=== PATIENT | female | born 1940 | race African-American/Black ===

== ENCOUNTER → 2017-01-09 | Outpatient (CLI) | payer MEDICARE, BC ==
[2016-06-30 11:00] VITALS: BP 91/41
[~2017-01-09] MED LIST: ASPI81TA9 PO; CHOL20004 PO; IPRA3AMP NEB; LATA2.5D3 OP; LATA2.5D3 OU; OXYC1TAB7 PO; TAMO20TA PO; TRIA1CAP3 PO
--- NOTE | 2017-01-09 13:50 | RAD ---
DATE: 01/09/2017 EXAM: DIGITAL DIAGNOSTIC BILATERAL HISTORY: Follow-up right breast cancer, left breast screening COMPARISON: 08/24/2015 This study was interpreted with the benefit of Computerized Aided Detection (CAD). FINDINGS: There are scattered fibroglandular densities in the breasts. Surgical clips are again noted laterally in the right breast. A small nodule in the posterolateral aspect of the left breast is unchanged. No new or enlarging breast densities are seen. Scattered bilateral breast microcalcifications are again noted and appear unchanged. IMPRESSION: Stable mammograms without evidence of malignancy. BI-RADS CATEGORY: 2 BENIGN FINDING(S) RECOMMENDED FOLLOW-UP: 12M 12 MONTH FOLLOW-UP PQRS compliance statement: Patient information was entered into a reminder system with a target due date for the next mammogram. Mammography is a sensitive method for finding small breast cancers, but it does not detect them all and is not a substitute for careful clinical examination. A negative mammogram does not negate a clinically suspicious finding and should not result in delay in biopsying a clinically suspicious abnormality. "Our facility is accredited by the [employer] Mammography Program."
== END | disposition home or self-care (01) ==
LOC: MAMMO 12:16
PROVIDERS: ATTEND Internal Medicine Hematology & Oncology
DX: D05.11 Intraductal carcinoma in situ of right breast (principal)
CPT/HCPCS: G0204; 77066

== ENCOUNTER → 2017-02-05 | Outpatient (CLI) | payer MEDICARE, BC ==
[2016-06-30 11:00] VITALS: BP 91/41
[~2017-02-05] MED LIST changes: +CONTRAST GIVEN MC PRN; +IOHEXOL 300 MG/ML 75 ML VIAL IV ONE
--- NOTE | 2017-02-05 10:29 | RAD ---
CT chest with IV contrast . History: Right lung carcinoma. Comparison: CT imaging from pleural catheter placement 06/27/2016. Technique: Helical CT of the chest was performed after the administration of intravenous contrast, 75 mL Omnipaque 350. Axial, sagittal, and coronal reconstructions were obtained. One or more of the following individualized dose reduction techniques were utilized for the study: Automated exposure control Adjustment of mA and/or kV according to patient's size Use of iterative reconstruction technique. Findings: Right upper lobectomy changes are seen. No mediastinal or hilar lymphadenopathy is identified. Aortic atherosclerosis seen. Coronary calcifications are present. Heart and pericardium are unremarkable. Thyroid is symmetric. Trachea and mainstem bronchi appear patent. No pneumothorax or pleural effusion is identified. The anterior lateral periphery of the right lower lobe demonstrates some consolidation which may be post treatment scarring. There is a 4 mm soft tissue pulmonary nodule in the right lower lobe (axial image 50), not seen on previous study but may have been obscured by parenchymal airspace disease or atelectasis on previous study. Moderate emphysematous changes of lungs are seen. Elongated 8 mm left upper lobe pulmonary nodule (axial image 34) is unchanged. There is mild nodular thickening of the visualized portions of both adrenal glands, similar to previous study. Right lumpectomy changes are seen. No suspicious osseous lesions are seen. Impression: 1. Right upper lobectomy changes. 2. Emphysema. 3. Small pulmonary nodules. 8 mm left upper lobe pulmonary nodule appears unchanged. There is 4 mm right lower lobe pulmonary nodule which is not well-seen on previous study, but may have been obscured on previous study by airspace disease. Attention on follow-up imaging. 4. Mild nodular thickening of left adrenal glands, similar to previous study.
== END | disposition home or self-care (01) ==
LOC: CT 08:47
PROVIDERS: ATTEND Internal Medicine Hematology & Oncology
DX: C34.91 Malignant neoplasm of unspecified part of right bronchus or lung (principal); J43.9 Emphysema, unspecified; R91.1 Solitary pulmonary nodule
CPT/HCPCS: 71260; Q9967

== ENCOUNTER → 2017-04-20 | Outpatient (CLI) | payer MEDICARE, BC ==
[2016-06-30 11:00] VITALS: BP 91/41
[~2017-04-20] MED LIST changes: +ASPI-612 PO; -ASPI81TA9 PO; -CHOL20004 PO; +CHOL200074 PO; -CONTRAST GIVEN MC PRN; -IOHEXOL 300 MG/ML 75 ML VIAL IV ONE
--- NOTE | 2017-04-20 11:17 | RAD ---
APPROVED REPORT Patient Location : OUT-PATIENT Indications venous insufficiency Findings The right great saphenous vein measures approximately 5.9 mm and does not show any evidence of reflux . The left great saphenous vein measures approximately 5.3 mm and does not show any evidence of reflu x. The bilateral lesser saphenous veins do not demonstrate any evidence of reflux. Critical Notification Critical Value: No <Conclusion> No evidence of reflux in the bilateral greater and lesser saphenous veins.
--- NOTE | 2017-04-20 16:37 | CARD ---
APPROVED REPORT EXAM: Two-dimensional and M-mode echocardiogram with Doppler and color Doppler. Other Information Quality : GoodHR: 64bpm Rhythm : NSR INDICATION Hypertension/HCVD Chest Pain 2D DIMENSIONS RVDd2.1 (2.9-3.5cm)Left Atrium(2D)3.4 (1.6-4.0cm) IVSd0.7 (0.7-1.1cm)Aortic Root(2D)3.0 (2.0-3.7cm) LVDd4.5 (3.9-5.9cm)LVOT Diameter2.2 (1.8-2.4cm) PWd0.7 (0.7-1.1cm)LVDs3.1 (2.5-4.0cm) FS (%) 30.9 %SV53.6 ml LVEF(%)58.6 (>50%) Aortic Valve AoV Peak Chaim.161.0cm/sAoV VTI38.1cm AO Peak GR.10.4mmHgLVOT Peak Chaim.106.3cm/s AO Mean GR.5mmHgAVA (VMAX)2.51cm2 Mitral Valve MV E Xbpiadjq501.0cm/sMV E Peak Gr.7mmHg MV DECEL [id number] A Gpgxoqhk858.9cm/s MV E Mean Gr.3mmHgE/A Ratio0.9 MV A [id number] Pulmonary Valve PV Peak Dkpmxgpd954.5cm/s Pulmonary Vein S1 Mlduuveg90.8cm/sD2 Eutbsclx46.7cm/s PVa gafkbsza05xclh LEFT VENTRICLE The left ventricle is normal size. There is normal left ventricular wall thickness. The left ventricu lar systolic function is normal and the ejection fraction is within normal range. The Ejection Fracti on is 55-60%. There is normal LV segmental wall motion. Transmitral Doppler flow pattern is Grade I-a bnormal relaxation pattern. RIGHT VENTRICLE The right ventricle is normal size. There is normal right ventricular wall thickness. The right ventr icular systolic function is normal. ATRIA The left atrium size is normal. The right atrium size is normal. The interatrial septum is intact wit h no evidence for an atrial septal defect or patent foramen ovale as noted on 2-D or Doppler imaging. AORTIC VALVE The aortic valve is moderately sclerotic. The aortic valve is grossly trileaflet but not well visuali zed. Doppler and Color Flow revealed no significant aortic regurgitation. There is no significant aor tic valvular stenosis. MITRAL VALVE The mitral valve leaflets are mildly thickened. There is no evidence of mitral valve prolapse. There is no mitral valve stenosis. Doppler and Color Flow revealed trace mitral regurgitation. TRICUSPID VALVE Doppler and Color Flow revealed no tricuspid valve regurgitation noted. Unable to determine pulmonary artery pressure at exam time. PULMONIC VALVE The pulmonary valve is not well visualized but appears to opens well. Doppler and Color Flow revealed no pulmonic valvular regurgitation. There is no pulmonic valvular stenosis by spectral Doppler. GREAT VESSELS The aortic root is normal in size. The ascending aorta is normal in size. The pulmonary artery is nor mal. The IVC is normal in size and collapses >50% with inspiration. PERICARDIAL EFFUSION There is no evidence of significant pericardial effusion. Critical Notification Critical Value: No <Conclusion> The left ventricular systolic function is normal and the ejection fraction is within normal range. Th e Ejection Fraction is 55-60%. There is normal LV segmental wall motion. The aortic valve is moderately sclerotic. The aortic valve is grossly trileaflet but not well visuali zed. No evidence of stenosis.
== END | disposition home or self-care (01) ==
LOC: US 06:59
PROVIDERS: ATTEND Internal Medicine Cardiovascular Disease
DX: I34.0 Nonrheumatic mitral (valve) insufficiency (principal); I87.2 Venous insufficiency (chronic) (peripheral); R07.9 Chest pain, unspecified
CPT/HCPCS: 93306; 93970

== ENCOUNTER → 2017-08-25 | Outpatient (CLI) | payer MEDICARE, BC ==
[2016-06-30 11:00] VITALS: BP 91/41
[~2017-08-25] MED LIST changes: +IOHEXOL 300 MG/ML 100ML VIAL. IV ONE
--- NOTE | 2017-08-25 10:25 | RAD ---
CT chest with contrast 08/25/2017 Clinical indication: Adenocarcinoma of the right lung. Restaging. Comparison: CT chest with contrast 02/05/2017, CT chest without 03/07/2016. Technique: Multiple CT images of the chest were obtained following the intravenous menstruation of Omnipaque 375 mL. PQRS Compliance Statement: One or more of the following individualized dose reduction techniques were utilized for this examination: 1. Automated exposure control 2. Adjustment of the mA and/or kV according to patient size 3. Use of iterative reconstruction technique Findings: Chest: There are surgical clips anterior to the thyroid. Heart size is normal without significant pericardial effusion. Thoracic aorta is normal in caliber with extensive calcified atheromatous disease most prominent at the ascending thoracic aorta and thoracic aortic arch. No axillary, mediastinal or obvious hilar lymphadenopathy. There are scattered mediastinal and hilar calcified granulomas. There are postsurgical changes of a prior right upper lobectomy. There is severe centrilobular emphysema. There is a stable noncalcified nodule in the anterior left upper lobe measuring 0.9 cm series 2/image 37, previously 0.9 cm. Slight interval decrease in basilar right lower lobe nodule now measuring 0.3 cm series 2/image 52 with decrease in the nodular component, likely benign infectious or inflammatory nodule. 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 Prominent of a 0.3 cm noncalcified nodule in the left lower lobe series 2/image 48. No pleural effusion or pneumothorax. There is degenerative endplate sclerosis at L2. No destructive osseous lesions. Limited images of the upper abdomen: There are 2 stable right adrenal gland nodules measuring 1.4 cm superiorly series 2/image 58 and 1.8 cm inferiorly series 2/image 62. Impression: 1. 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 2. Development of 0.3 cm noncalcified nodule in the left lower lobe, indeterminate. CT follow-up in 3 months is recommended. 4. Stable anterior left upper lobe noncalcified pulmonary nodule. 5. Slight interval decrease in previously noted right lower lobe pulmonary nodule, likely benign infectious or inflammatory nodule. Attention on follow-up imaging is recommended. 6. Unchanged two right adrenal gland nodules.
== END | disposition home or self-care (01) ==
LOC: CT 09:03
PROVIDERS: ATTEND Internal Medicine Hematology & Oncology
DX: C34.91 Malignant neoplasm of unspecified part of right bronchus or lung (principal)
CPT/HCPCS: 71260; Q9967

== ENCOUNTER → 2017-11-23 | Outpatient (CLI) | payer MEDICARE ==
[~2017-11-23] MED LIST changes: -ASPI-612 PO; -CHOL200074 PO; +CONTRAST GIVEN MC; -IOHEXOL 300 MG/ML 100ML VIAL. IV ONE; -IPRA3AMP NEB; -LATA2.5D3 OP; -LATA2.5D3 OU; -OXYC1TAB7 PO; -TAMO20TA PO; -TRIA1CAP3 PO
[2017-11-23] MEDS: IOHEXOL 300 MG/ML 100ML VIAL. IV ×2 (11:05)
== END | disposition home or self-care (01) ==
LOC: CT 10:44
DX: C34.91 Malignant neoplasm of unspecified part of right bronchus or lung (principal); J43.9 Emphysema, unspecified; I10 Essential (primary) hypertension; I70.0 Atherosclerosis of aorta; R91.8 Other nonspecific abnormal finding of lung field; Z87.891 Personal history of nicotine dependence
CPT/HCPCS: 71260; Q9967

== ENCOUNTER → 2018-01-11 | Outpatient (CLI) | payer MEDICARE | END | disposition home or self-care (01) | LOC: MAMMO 09:03 | DX: D05.11 Intraductal carcinoma in situ of right breast (principal); R91.8 Other nonspecific abnormal finding of lung field; Z85.3 Personal history of malignant neoplasm of breast | CPT/HCPCS: 77066; G0279 ==

== ENCOUNTER → 2018-03-22 | Outpatient (CLI) | payer MEDICARE | END | disposition home or self-care (01) | LOC: CT 09:07 | DX: J43.2 Centrilobular emphysema (principal); R91.8 Other nonspecific abnormal finding of lung field | CPT/HCPCS: 71250 ==

== ENCOUNTER → 2018-10-01 | Outpatient (CLI) | payer MEDICARE ==
[2016-06-30 11:00] VITALS: BP 91/41
[~2018-10-01] MED LIST changes: +ASPI-612 PO; +CHOL200074 PO; -CONTRAST GIVEN MC; +IPRA3AMP29 NEB; +LATA2.5D3 OP; +LATA2.5D3 OU; +OXYC1TAB7 PO; +TAMO20TA PO; +TRIA1CAP3 PO
--- NOTE | 2018-10-01 10:22 | RAD ---
EXAM: CT Chest without IV contrast CLINICAL HISTORY: ductal carcinoma right breast, hx of lung ca and prior pulmonary embolus COMPARISON: CT 03/22/2018, 11/23/2017 03/07/2016. TECHNIQUE: CT of the chest without intravenous contrast. Axial, coronal and sagittal reformatted images were generated. ---PQRS compliance statement - One or more of the following individualized dose reduction techniques were utilized for this study: 1. Automated exposure control 2. Adjustment of the mA and/or kV according to patient size 3. Use of iterative reconstruction technique--- FINDINGS: Lack of intravenous contrast limits evaluation of solid organs, vasculature, and lymph nodes. Chest: The heart is not enlarged. No pericardial effusion. Coronary artery calcifications are seen. Dense atherosclerotic calcifications of the aorta and aortic root are seen. No pleural effusion or pneumothorax. Within the constraints of this noncontrast examination, no definite thoracic lymphadenopathy. Calcified mediastinal and right hilar lymph nodes are seen. Bilateral emphysematous changes are seen. Triangular lingular lung nodule is stable and compared to 03/07/2016 is significantly smaller. A 4 mm left apical lung nodule is now seen. Linear opacities in the lower lobes, middle lobe and lingula likely scarring/atelectasis. Right chest wall and axillary surgical clips are seen. Visualized Upper abdomen: Right renal nodules are stable. High density material within the gallbladder likely sludge. Bones: Degenerative changes of the spine are seen, most prominent at L2-3. IMPRESSION: 1. A new 4 mm left apical lung nodule is seen. Given history of known malignancy, consider follow-up in 6-12 months. 2. No thoracic lymphadenopathy by size criteria. 3. Bilateral emphysematous changes are seen. Electronically signed by: Harshil George MD (10/01/2018 10:18 AM) [facility]
== END | disposition home or self-care (01) ==
LOC: CT 08:07
PROVIDERS: ATTEND Internal Medicine Hematology & Oncology
DX: R91.1 Solitary pulmonary nodule (principal); R59.0 Localized enlarged lymph nodes; I70.0 Atherosclerosis of aorta; I25.10 Atherosclerotic heart disease of native coronary artery without angina pectoris; I26.99 Other pulmonary embolism without acute cor pulmonale; Z85.118 Personal history of other malignant neoplasm of bronchus and lung; Z85.3 Personal history of malignant neoplasm of breast
CPT/HCPCS: 71250

== ENCOUNTER → 2019-01-12 | Outpatient (CLI) | payer MEDICARE ==
[2016-06-30 11:00] VITALS: BP 91/41
--- NOTE | 2019-01-12 10:11 | RAD ---
DATE: 01/12/2019 EXAM: MAMMO LIANE SCREENING BILATERAL HISTORY: Previous right breast cancer COMPARISON: 01/11/2018 This study was interpreted with the benefit of Computerized Aided Detection (CAD). Breast Density: SCATTERED The breast parenchyma shows scattered fibroglandular densities. Breast parenchyma level B. FINDINGS: 2-D and 3-D tomosynthesis imaging was performed in CC and MLO projections. Surgical clips are present laterally in the right breast. There is an unchanged smooth oval-shaped nodule in the posterolateral aspect of the left breast. A 1 cm smooth periarticular nodule is now noted laterally at approximately the 3:00 location. No other new or enlarging breast densities are seen. Microcalcifications in both breasts appear stable. IMPRESSION: Left lateral periareolar nodule. Sonographic evaluation is suggested. BI-RADS CATEGORY: 0 INCOMPLETE: NEEDS ADDITIONAL IMAGING EVALUATION AND/OR PRIOR MAMMOGRAMS FOR COMPARISON. RECOMMENDED FOLLOW-UP: ADD ADDITIONAL IMAGING PQRS compliance statement: Patient information was entered into a reminder system with a target due date for the next mammogram. Mammography is a sensitive method for finding small breast cancers, but it does not detect them all and is not a substitute for careful clinical examination. A negative mammogram does not negate a clinically suspicious finding and should not result in delay in biopsying a clinically suspicious abnormality. "Our facility is accredited by the [employer] Mammography Program."
== END | disposition home or self-care (01) ==
LOC: MAMMO 09:14
PROVIDERS: ATTEND Internal Medicine Hematology & Oncology
DX: Z12.31 Encounter for screening mammogram for malignant neoplasm of breast (principal); N63.21 Unspecified lump in the left breast, upper outer quadrant; Z85.3 Personal history of malignant neoplasm of breast
CPT/HCPCS: 77063; 77067

== ENCOUNTER → 2019-01-17 | Outpatient (CLI) | payer MEDICARE ==
[2016-06-30 11:00] VITALS: BP 91/41
--- NOTE | 2019-01-17 14:03 | RAD ---
LEFT BREAST SONOGRAPHY Clinical indications: Further evaluation of lateral periareolar nodule seen on screening mammogram dated January 12, 2019. Findings: High-resolution sonography of the retroareolar region of the left breast was performed. At the 3 clock position, an 11 mm simple cyst is seen which corresponds to the mammographic finding. Retroareolar ductal ectasia is seen as well. IMPRESSION: Simple cyst of the 3:00 retroareolar region of the left breast which corresponds to the mammographic finding. Therefore, recommend routine screening mammography in one year. BI-RADS Category 2 benign finding The patient information was entered into the data reminder system with a target due date for the next mammogram of January 14, 2020.
== END | disposition home or self-care (01) ==
LOC: US 15:55
PROVIDERS: ATTEND Internal Medicine Hematology & Oncology
DX: D05.11 Intraductal carcinoma in situ of right breast (principal); N60.02 Solitary cyst of left breast
CPT/HCPCS: 76641

== ENCOUNTER → 2019-04-06 | Outpatient (CLI) | payer MEDICARE ==
[2016-06-30 11:00] VITALS: BP 91/41
--- NOTE | 2019-04-06 17:00 | RAD ---
CT of the chest without contrast, 04/06/2019: HISTORY: Previous right lung cancer and right breast cancer, lung nodule Noncontrast scans were obtained as requested and compared to a study from 10/01/2018. There are moderate emphysematous changes in the lungs. There are bilateral apical pleural-parenchymal opacities which are unchanged and are compatible with scarring. There is a calcific component in the right apex. There are additional scattered linear opacities in both lungs compatible with scars. There is parenchymal scarring laterally in the right mid chest. There is slight herniation of a small portion of lung between the right fifth and sixth ribs, likely related to previous chest surgery. No enlarging pulmonary densities are seen. There is no evidence of pleural fluid. There is moderate calcific plaquing of the thoracic aorta and its branches including the coronary arteries. There is no evidence of thoracic aortic aneurysm. The heart is not enlarged. There is a calcified subcarinal lymph node. No mediastinal adenopathy is evident. There are surgical clips in the lower neck and in the right breast laterally. No axillary adenopathy is seen. There are moderate scattered degenerative changes in the spine. IMPRESSION: 1. Emphysema with bilateral pleural/parenchymal scarring. 2. Postsurgical changes in the right hemithorax. 3. Extensive calcific plaquing of the aorta and coronary arteries. 4. No CT evidence of metastatic disease. PQRS Compliance Statement: One or more of the following individualized dose reduction techniques were utilized for this examination: 1. Automated exposure control 2. Adjustment of the mA and/or kV according to patient size 3. Use of iterative reconstruction technique Electronically signed by: Vito Williamson MD (04/06/2019 4:58 PM) [facility]
== END | disposition home or self-care (01) ==
LOC: CT 10:48
PROVIDERS: ATTEND Internal Medicine Hematology & Oncology
DX: J43.9 Emphysema, unspecified (principal); J98.4 Other disorders of lung; I70.0 Atherosclerosis of aorta; I25.10 Atherosclerotic heart disease of native coronary artery without angina pectoris; M95.4 Acquired deformity of chest and rib; D05.11 Intraductal carcinoma in situ of right breast; Z85.3 Personal history of malignant neoplasm of breast; Z85.118 Personal history of other malignant neoplasm of bronchus and lung
CPT/HCPCS: 71250

== ENCOUNTER 2019-09-22 05:29 | Inpatient (IN) | payer MEDICARE ==
[~2019-09-22] VITALS: Ht 165.1 cm; Wt 71.8 kg
[2019-09-22] MEDS ORDERED: IPRATRPIUM/ALBUTEROL 0.5/2.5MG 3 ML NEBU. NEB ONE (05:45)
--- NOTE | 2019-09-22 05:54 | EKG ---
[facility] [address] [place] [address] Test Date: 2019-09-22 Test Time: 05:36:26 Pat Name: YUN JETT Department: Room: Gender: F [employer] Offbearer: : 1940 Requested By: PADILLA GILLESPIE Order Number: [id number] Reading MD: Measurements Intervals Shelby Rate: 122 P: 59 ME: 136 QRS: 56 QRSD: 86 T: 66 QT: 280 QTc: 400 Interpretive Statements SINUS TACHYCARDIA NON SPECIFIC ST-T ABNORMALITY (ELEVATION) OTHERWISE NORMAL ECG No previous ECG available for comparison
--- NOTE | 2019-09-22 06:10 | PHYS DOC ---
Past Medical History Past Medical History: Cancer, Hypertension, Other Additional Past Medical Histor: Chemo in 2006 (PADILLA GILLESPIE MD) Past Surgical History: Other Additional Past Surgical Histo: right lung biopsy (PADILLA GILLESPIE MD) Alcohol Use: None Drug Use: None (PADILLA GILLESPIE MD) Adult General Chief Complaint Chief Complaint: SHORTNESS OF BREATH HPI HPI 79-year-old female presents to the emergency department via EMS with complaints of shortness of breath. Patient has a history of lung cancer. She called EMS for increasing shortness of breath over the last couple days. Patient provided a DuoNeb per EMS. Oxygen saturations upon arrival on 6 L were 85-87%. Respiratory was called to the ER for further evaluation and treatment with DuoNeb. Nonrebreather was placed with saturations in the low 90s. She is in no significant distress on examination. She describes weakness, cough, chills. She denies any fever, nausea, vomiting, headache or visual change. (PADILLA GILLESPIE MD) Review of Systems Review of Systems Constitutional: Chills Respiratory: cough/SOB Cardiovascular: No additional information not addressed in HPI [] GI: Denies abdominal pain, nausea, vomiting, bloody stools or diarrhea [] : Denies dysuria or hematuria [] Musculoskeletal: Denies back pain or joint pain [] Neurologic: Denies headache, focal weakness or sensory changes [] All other systems were reviewed and found to be within normal limits, except as documented in this note. (PADILLA GILLESPIE MD) Current Medications Current Medications Current Medications Medications (Trade) Dose Ordered Sig/Rosa Start Time Stop Time Status Last Admin Dose Admin Acetaminophen (Tylenol) 1,000 mg 1X ONCE 09/22/19 07:00 09/22/19 07:01 DC 09/22/19 07:21 1,000 MG Albuterol/ Ipratropium (Duoneb) 3 ml 1X ONCE 09/22/19 05:45 09/22/19 05:50 DC 09/22/19 05:49 3 ML Levofloxacin/ Dextrose 150 ml @ 100 mls/hr 1X ONCE 09/22/19 07:00 09/22/19 08:29 09/22/19 07:21 100 MLS/HR Sodium Chloride 1,000 ml @ 250 mls/hr 1X ONCE 09/22/19 07:00 09/22/19 10:59 09/22/19 07:22 250 MLS/HR (TORI REN Jr. DO) Allergies Allergies Allergies Coded Allergies Type Severity Reaction Last Updated Verified Penicillins Allergy Intermediate Rash 06/17/16 Yes (TORI REN Jr. DO) Physical Exam Physical Exam Constitutional: Well developed, well nourished, mild distress, non-toxic appearance. [] HENT: Normocephalic, atraumatic, bilateral external ears normal, oropharynx moist, no oral exudates, nose normal. [] Eyes: PERRLA, EOMI, conjunctiva normal, no discharge. [] Cardiovascular: tachycardia Lungs & Thorax: decreased bs Abdomen: Bowel sounds normal, soft, no tenderness, no masses, no pulsatile masses. [] Skin: Warm, dry, no erythema, no rash. [] Extremities: No tenderness, no edema. [] Neurologic: Alert and oriented X 3, no focal deficits noted. [] Psychologic: Affect normal, judgement normal, mood normal. [] (PADILLA GILLESPIE MD) Current Patient Data Vital Signs Vital Signs Date Time Temp Pulse Resp B/P (MAP) Pulse Ox O2 Delivery O2 Flow Rate FiO2 09/22/19 07:08 95 Nasal Cannula 6.0 09/22/19 06:40 114 23 118/63 (81) 09/22/19 05:30 100.5 100.5 (TORI REN Jr. DO) Lab Values Laboratory Tests Test 09/22/19 06:10 09/22/19 06:18 09/22/19 06:23 White Blood Count 8.3 x10^3/uL (4.0-11.0) Red Blood Count 4.42 x10^6/uL (3.50-5.40) Hemoglobin 13.8 g/dL (12.0-15.5) Hematocrit 41.6 % (36.0-47.0) Mean Corpuscular Volume 94 fL (79-100) Mean Corpuscular Hemoglobin 31 pg (25-35) Mean Corpuscular Hemoglobin Concent 33 g/dL (31-37) Red Cell Distribution Width 14.7 % (11.5-14.5) H Platelet Count 210 x10^3/uL (140-400) Neutrophils (%) (Auto) 96 % (31-73) H Lymphocytes (%) (Auto) 2 % (24-48) L Monocytes (%) (Auto) 2 % (0-9) Eosinophils (%) (Auto) 0 % (0-3) Basophils (%) (Auto) 0 % (0-3) Neutrophils # (Auto) 8.0 x10^3/uL (1.8-7.7) H Lymphocytes # (Auto) 0.2 x10^3/uL (1.0-4.8) L Monocytes # (Auto) 0.2 x10^3/uL (0.0-1.1) Eosinophils # (Auto) 0.0 x10^3/uL (0.0-0.7) Basophils # (Auto) 0.0 x10^3/uL (0.0-0.2) Platelet Estimate Pending Sodium Level 142 mmol/L (136-145) Potassium Level 3.4 mmol/L (3.5-5.1) L Chloride Level 103 mmol/L (98-107) Carbon Dioxide Level 25 mmol/L (21-32) Anion Gap 14 (6-14) Blood Urea Nitrogen 52 mg/dL (7-20) H Creatinine 1.5 mg/dL (0.6-1.0) H Estimated GFR (Cockcroft-Gault) 40.4 BUN/Creatinine Ratio 35 (6-20) H Glucose Level 106 mg/dL (70-99) H Calcium Level 9.0 mg/dL (8.5-10.1) Total Bilirubin 0.9 mg/dL (0.2-1.0) Aspartate Amino Transferase (AST) 27 U/L (15-37) Alanine Aminotransferase (ALT) 14 U/L (14-59) Alkaline Phosphatase 52 U/L (46-116) Troponin I Quantitative < 0.017 ng/mL (0.000-0.055) VQ-Elv-Q-Type Natriuretic Peptide 1021 pg/mL (0-449) H Total Protein 6.2 g/dL (6.4-8.2) L Albumin 2.7 g/dL (3.4-5.0) L Albumin/Globulin Ratio 0.8 (1.0-1.7) L Lactic Acid Level 3.5 mmol/L (0.4-2.0) H Influenza Type A Antigen Negative (NEGATIVE) Influenza Type B Antigen Negative (NEGATIVE) Laboratory Tests 09/22/19 06:10 Laboratory Tests 09/22/19 06:10 (TORI REN Jr., DO) EKG EKG [] (PADILLA GILLESPIE MD) Radiology/Procedures Radiology/Procedures [] (PADILLA GILLESPIE MD) Impressions: PROCEDURE: PORTABLE CHEST 1V EXAM: CHEST 1 VIEW History: Shortness of breath COMPARISON: 08/25/2016 TECHNIQUE: Single portable radiograph of the chest FINDINGS: The cardiac silhouette is unremarkable. Consolidation changes identified in the left lower lobe of the lung likely pneumonia or atelectasis. Mild prominent bilateral interstitial lung markings. Impression: 1. Left lower lobe consolidation likely pneumonia or atelectasis. Follow-up to resolution. 2. Prominent bilateral digital lung markings likely mild congestive changes. Electronically signed by: Garrett Florentino MD (09/22/2019 6:10 AM) [facility] (TORI REN Jr., DO) Course & Med Decision Making Course & Med Decision Making Pertinent Labs and Imaging studies reviewed. (See chart for details) [] 79-year-old female presents to the emergency department via EMS with complaints of shortness of breath. Patient has a history of lung cancer. She called EMS for increasing shortness of breath over the last couple days. Patient provided a DuoNeb per EMS. Oxygen saturations upon arrival on 6 L were 85-87%. Respiratory was called to the ER for further evaluation and treatment with DuoNeb. Nonrebreather was placed with saturations in the low 90s. She is in no significant distress on examination. She describes weakness, cough, chills. She denies any fever, nausea, vomiting, headache or visual change. She care transferred to oncoming physician at [phone]. Discuss[address] case with Dr. Ren. He will assume care and disposition of this patient. (PADILLA GILLESPIE MD) Dragon Disclaimer Dragon Disclaimer This electronic medical record was generated, in whole or in part, using a voice recognition dictation system. (PADILLA GILLESPIE MD) Departure Departure Impression: Primary Impression: Community acquired pneumonia Additional Impressions: Hypoxemia Acute kidney injury Dehydration Disposition: ADMITTED INPATIENT Admitting Physician: [facility] (Dr. Banks) (REN,TORI D Jr. DO) Condition: IMPROVED Referrals: KENDELL CHAN MD (PCP) Problem Qualifiers Primary Impression: Community acquired pneumonia Laterality: left Lung location: lower lobe of lung Qualified Codes: J18.9 - Pneumonia, unspecified organism PADILLA GILLESPIE MD Sep 22, 2019 06:10 TORI REN Jr., DO Sep 22, 2019 06:42
--- NOTE | 2019-09-22 06:13 | RAD ---
EXAM: CHEST 1 VIEW History: Shortness of breath COMPARISON: 08/25/2016 TECHNIQUE: Single portable radiograph of the chest FINDINGS: The cardiac silhouette is unremarkable. Consolidation changes identified in the left lower lobe of the lung likely pneumonia or atelectasis. Mild prominent bilateral interstitial lung markings. Impression: 1. Left lower lobe consolidation likely pneumonia or atelectasis. Follow-up to resolution. 2. Prominent bilateral digital lung markings likely mild congestive changes. Electronically signed by: Garrett Florentino MD (09/22/2019 6:10 AM) [facility]
[2019-09-22 06:26] LABS: BASO % 0 % (0-3); EOS % 0 % (0-3); HEMATOCRIT 41.6 % (36.0-47.0); HEMOGLOBIN 13.8 g/dL (12.0-15.5); LYMPH # 0.2 x10^3/uL (1.0-4.8); LYMPH % 2 % (24-48); MEAN CORPUSCULAR HEMOGLOBIN 31 pg (25-35); MEAN CORPUSCULAR HGB CONC 33 g/dL (31-37); MEAN CORPUSCULAR VOLUME 94 fL (79-100); MONO # 0.2 x10^3/uL (0.0-1.1); MONO % 2 % (0-9); NEUT % 96 % (31-73); PLATELET COUNT 210 x10^3/uL (140-400); RED BLOOD COUNT 4.42 x10^6/uL (3.50-5.40); RED CELL DISTRIBUTION WIDTH 14.7 % (11.5-14.5); WHITE BLOOD COUNT 8.3 x10^3/uL (4.0-11.0)
[2019-09-22 06:33] LABS: CREATININE 1.5 mg/dL (0.6-1.0); GFR 40.4; POTASSIUM 3.4 mmol/L (3.5-5.1)
[2019-09-22 06:38] LABS: ALBUMIN 2.7 g/dL (3.4-5.0); ALBUMIN/GLOBULIN RATIO 0.8 (1.0-1.7); TOTAL BILIRUBIN 0.9 mg/dL (0.2-1.0); TOTAL PROTEIN 6.2 g/dL (6.4-8.2)
[2019-09-22] MEDS ORDERED: ACETAMINOPHEN 500 MG TABLET PO ONE (07:00)
[2019-09-22] MEDS ORDERED: IV NORMAL SALINE 1000ML BAG 1,000 ML IV ONE ×2 (07:00→09:00)
[2019-09-22 07:10] LABS: INFLUENZA A PATIENT NEGATIVE (NEGATIVE); INFLUENZA B PATIENT NEGATIVE (NEGATIVE)
[2019-09-22 07:58] LABS: % BANDS 28 % (0-9); % LYMPHS 5 % (24-48); % METAS 3 % (0-0); % MONOS 4 % (0-10); % SEGS 60 % (35-66); PLT ESTIMATE ADEQUATE (ADEQUATE); TOXIC VACUOLATION PRESENT
--- NOTE | 2019-09-22 08:00 | PDOC1 ---
History and Physical Date of Admission Date of Admission DATE: 09/22/19 TIME: 07:51 Identification/Chief Complaint Chief Complaint Shortness of breath Source Source: Patient History of Present Illness History of Present Illness Ms Steele is an 79 yo F w/ PMHx RUL Adenocarcinoma s/p right upper lobectomy, hypertension c/p shortness of breath. Brought in via EMS for dyspnea over the past 2 days, was given DuoNeb enroute. Oxygen saturations upon arrival on 6 L were 85-87% and was changed to nonrebreather was placed with saturations in the low 90s. She is in no significant distress on examination. She describes weakn ess, cough, chills. She denies any fever, nausea, vomiting, headache or visual change. Cr 1.5. CXR with LLL infiltrate. Admit for further care Past Medical History Cardiovascular: HTN Heme/Onc: Cancer (Lung cancer) Past Surgical History Past Surgical History: Other (RUL lobectomy) Family History Family History: High Cholestrol, Hypertension Social History Smoke: Quit ALCOHOL: none Drugs: None Current Problem List Problem List Problems Medical Problems: (1) Shortness of breath Status: Acute Current Medications Current Medications Current Medications Albuterol/ Ipratropium (Duoneb) 3 ml 1X ONCE NEB Last administered on 09/22/19at 05:49; Start 09/22/19 at 05:45; Stop 09/22/19 at 05:50; Status DC Levofloxacin/ Dextrose 150 ml @ 100 mls/hr 1X ONCE IV Last administered on 09/22/19at 07:21; Start 09/22/19 at 07:00; Stop 09/22/19 at 08:29 Sodium Chloride 1,000 ml @ 250 mls/hr 1X ONCE IV Last administered on 09/22/19at 07:22; Start 09/22/19 at 07:00; Stop 09/22/19 at 10:59 Acetaminophen (Tylenol) 1,000 mg 1X ONCE PO Last administered on 09/22/19at 07:21; Start 09/22/19 at 07:00; Stop 09/22/19 at 07:01; Status DC Active Scripts Active Oxycodone-Acetaminophen 5-325 (Oxycodone Hcl/Acetaminophen) 1 Each Tablet 1 Tab PO PRN Q4HRS PRN Latanoprost 2.5 Ml Drops 1 Drop OU QHS Duoneb 0.5-3(2.5) Mg/3 Ml (Albuterol/Ipratropium) 3 Ml Ampul.neb 3 Ml NEB RTQID Reported Tamoxifen Citrate 20 Mg Tablet 10 Mg PO BID Latanoprost 2.5 Ml Drops 1 Ml OP QHS Triamterene-Hctz 37.5-25 Mg Cp (Triamterene/Hydrochlorothiazid) 1 Each Capsule 1 Each PO DAILY Aspirin Ec (Aspirin) 81 Mg Tablet.dr 81 Mg PO DAILY Vitamin D-3 (Cholecalciferol (Vitamin D3)) 2,000 Unit Capsule 2,000 Unit PO DAILY Allergies Allergies: Coded Allergies: Penicillins (Verified Allergy, Intermediate, Rash, 06/17/16) ROS General: YES: Fatigue, Malaise; No: Chills, Night Sweats, Appetite, Other PSYCHOLOGICAL ROS: No: Anxiety, Behavioral Disorder, Concentration difficultie, Decreased libido, Depression, Disorientation, Hallucinations, Hostility, Irritablity, Memory difficulties, Mood Swings, Obsessive thoughts, Physical abuse, Sexual abuse, Sleep disturbances, Suicidal ideation, Other Eyes: No Blurry vision, No Decreased vision, No Double vision, No Dry eyes, No Excessive tearing, No Eye Pain, No Itchy Eyes, No Loss of vision, No Photophobia, No Scotomata, No Uses contacts, No Uses glasses, No Other HEENT: No: Heacaches, Visual Changes, Hearing change, Nasal congestion, Nasal discharge, Oral lesions, Sinus pain, Sore Throat, Epistaxis, Sneezing, Snoring, Tinnitus, Vertigo, Vocal changes, Other ALLERGY AND IMMUNOLOGY: No: Hives, Insect Bite Sensitivity, Itchy/Watery Eyes, Nasal Congestion, Post Nasal Drip, Seasonal Allergies, Other Hematological and Lymphatic: No: Bleeding Problems, Blood Clots, Blood Transfusions, Brusing, Night Sweats, Pallor, Swollen Lymph Nodes, Other ENDOCRINE: No: Breast Changes, Galactorrhea, Hair Pattern Changes, Hot Flashes, Malaise/lethargy, Mood Swings, Palpitations, Polydipsia/polyuria, Skin Changes, Temperature Intolerance, Unexpected Weight Changes, Other Breast: No New/Changing Breast Lumps, No Nipple changes, No Nipple discharge, No Other Respiratory: YES: Cough, Shortness of breath, SOB with excertion, Tachypnea, Wheezing; No: Hemoptysis, Orthopnea, Pleuritic Pain, Sputum Changes, Stridor, Other Cardiovascular: No Chest Pain, No Palpitations, No Orthopnea, No Paroxysmal Noc. Dyspnea, No Edema, No Lt Headedness, No Other Gastrointestinal: No Nausea, No Vomiting, No Abdominal Pain, No Diarrhea, No Constipation, No Melena, No Hematochezia, No Other Genitourinary: No Dysuria, No Frequency, No Incontinence, No Hematuria, No Retention, No Discharge, No Urgency, No Pain, No Flank Pain, No Other, No , No , No , No , No , No , No Musculoskeletal: Yes Muscle Pain, Yes Muscular Weakness; No Gait Disturbance, No Joint Pain, No Joint Stiffness, No Joint Swelling, No Pain In:, No Swelling In:, No Other Neurological: No Behavorial Changes, No Bowel/Bladder ControlChng, No Confusion , No Dizziness, No Gait Disturbance, No Headaches, No Impaired Coord/balance, No Memory Loss, No Numbness/Tingling, No Seizures, No Speech Problems, No Tremors, No Visual Changes, No Weakness, No Other Skin: No Dry Skin, No Eczema, No Hair Changes, No Lumps, No Mole Changes, No Mottling, No Nail Changes, No Pruritus, No Rash, No Skin Lesion Changes, No Other, No Acne Physical Exam General: Alert, Oriented X3, Cooperative, mild distress HEENT: Atraumatic, PERRLA, EOMI, Mucous membr. moist/pink Lungs: Other (Rhonchi on left) Heart: S1S2, RRR, no thrills, no rubs, no gallops, no murmurs Abdomen: Normal bowel sounds, Soft, No tenderness, No hepatosplenomegaly, No masses Rectal Exam: not examined Extremities: No clubbing, No cyanosis, No edema, Normal pulses, No tenderness/swelling Skin: No rashes, No breakdown, No significant lesion Neuro: Normal gait, Normal speech, Strength at 5/5 X4 ext, Normal tone, Sensati on intact, Cranial nerves 3-12 NL, Reflexes 2+ Psych/Mental Status: Mental status NL, Mood NL Vitals Vitals Vital Signs Date Time Temp Pulse Resp B/P (MAP) Pulse Ox O2 Delivery O2 Flow Rate FiO2 09/22/19 07:08 95 Nasal Cannula 6.0 09/22/19 06:40 114 23 118/63 (81) 09/22/19 05:30 100.5 100.5 Labs Labs Laboratory Tests Test 09/22/19 06:10 09/22/19 06:18 09/22/19 06:23 White Blood Count 8.3 x10^3/uL (4.0-11.0) Red Blood Count 4.42 x10^6/uL (3.50-5.40) Hemoglobin 13.8 g/dL (12.0-15.5) Hematocrit 41.6 % (36.0-47.0) Mean Corpuscular Volume 94 fL (79-100) Mean Corpuscular Hemoglobin 31 pg (25-35) Mean Corpuscular Hemoglobin Concent 33 g/dL (31-37) Red Cell Distribution Width 14.7 % (11.5-14.5) Platelet Count 210 x10^3/uL (140-400) Neutrophils (%) (Auto) 96 % (31-73) Lymphocytes (%) (Auto) 2 % (24-48) Monocytes (%) (Auto) 2 % (0-9) Eosinophils (%) (Auto) 0 % (0-3) Basophils (%) (Auto) 0 % (0-3) Neutrophils # (Auto) 8.0 x10^3/uL (1.8-7.7) Lymphocytes # (Auto) 0.2 x10^3/uL (1.0-4.8) Monocytes # (Auto) 0.2 x10^3/uL (0.0-1.1) Eosinophils # (Auto) 0.0 x10^3/uL (0.0-0.7) Basophils # (Auto) 0.0 x10^3/uL (0.0-0.2) Sodium Level 142 mmol/L (136-145) Potassium Level 3.4 mmol/L (3.5-5.1) Chloride Level 103 mmol/L (98-107) Carbon Dioxide Level 25 mmol/L (21-32) Anion Gap 14 (6-14) Blood Urea Nitrogen 52 mg/dL (7-20) Creatinine 1.5 mg/dL (0.6-1.0) Estimated GFR (Cockcroft-Gault) 40.4 BUN/Creatinine Ratio 35 (6-20) Glucose Level 106 mg/dL (70-99) Calcium Level 9.0 mg/dL (8.5-10.1) Total Bilirubin 0.9 mg/dL (0.2-1.0) Aspartate Amino Transf (AST/SGOT) 27 U/L (15-37) Alanine Aminotransferase (ALT/SGPT) 14 U/L (14-59) Alkaline Phosphatase 52 U/L (46-116) Troponin I Quantitative < 0.017 ng/mL (0.000-0.055) GI-Qtv-G-Type Natriuretic Peptide 1021 pg/mL (0-449) Total Protein 6.2 g/dL (6.4-8.2) Albumin 2.7 g/dL (3.4-5.0) Albumin/Globulin Ratio 0.8 (1.0-1.7) Lactic Acid Level 3.5 mmol/L (0.4-2.0) Influenza Type A Antigen Negative (NEGATIVE) Influenza Type B Antigen Negative (NEGATIVE) Laboratory Tests Test 09/22/19 06:10 09/22/19 06:18 09/22/19 06:23 White Blood Count 8.3 x10^3/uL (4.0-11.0) Red Blood Count 4.42 x10^6/uL (3.50-5.40) Hemoglobin 13.8 g/dL (12.0-15.5) Hematocrit 41.6 % (36.0-47.0) Mean Corpuscular Volume 94 fL (79-100) Mean Corpuscular Hemoglobin 31 pg (25-35) Mean Corpuscular Hemoglobin Concent 33 g/dL (31-37) Red Cell Distribution Width 14.7 % (11.5-14.5) Platelet Count 210 x10^3/uL (140-400) Neutrophils (%) (Auto) 96 % (31-73) Lymphocytes (%) (Auto) 2 % (24-48) Monocytes (%) (Auto) 2 % (0-9) Eosinophils (%) (Auto) 0 % (0-3) Basophils (%) (Auto) 0 % (0-3) Neutrophils # (Auto) 8.0 x10^3/uL (1.8-7.7) Lymphocytes # (Auto) 0.2 x10^3/uL (1.0-4.8) Monocytes # (Auto) 0.2 x10^3/uL (0.0-1.1) Eosinophils # (Auto) 0.0 x10^3/uL (0.0-0.7) Basophils # (Auto) 0.0 x10^3/uL (0.0-0.2) Sodium Level 142 mmol/L (136-145) Potassium Level 3.4 mmol/L (3.5-5.1) Chloride Level 103 mmol/L (98-107) Carbon Dioxide Level 25 mmol/L (21-32) Anion Gap 14 (6-14) Blood Urea Nitrogen 52 mg/dL (7-20) Creatinine 1.5 mg/dL (0.6-1.0) Estimated GFR (Cockcroft-Gault) 40.4 BUN/Creatinine Ratio 35 (6-20) Glucose Level 106 mg/dL (70-99) Calcium Level 9.0 mg/dL (8.5-10.1) Total Bilirubin 0.9 mg/dL (0.2-1.0) Aspartate Amino Transf (AST/SGOT) 27 U/L (15-37) Alanine Aminotransferase (ALT/SGPT) 14 U/L (14-59) Alkaline Phosphatase 52 U/L (46-116) Troponin I Quantitative < 0.017 ng/mL (0.000-0.055) IH-Fow-Y-Type Natriuretic Peptide 1021 pg/mL (0-449) Total Protein 6.2 g/dL (6.4-8.2) Albumin 2.7 g/dL (3.4-5.0) Albumin/Globulin Ratio 0.8 (1.0-1.7) Lactic Acid Level 3.5 mmol/L (0.4-2.0) Influenza Type A Antigen Negative (NEGATIVE) Influenza Type B Antigen Negative (NEGATIVE) Images Images CXR - 1. Left lower lobe consolidation likely pneumonia or atelectasis. Follow- up to resolution. 2. Prominent bilateral digital lung markings likely mild congestive changes. VTE Prophylaxis Ordered VTE Prophylaxis Devices: Yes VTE Pharmacological Prophylaxi: Yes Assessment/Plan Assessment/Plan A/P: Acute hypoxia LLL infiltrate - almost certainly pneumonia. Likely gram negative given her h/o lung cancer and structural lung disease. Levaquin appropriate. Pulm consulted. NAM - likely vasomotor nephropathy, started on IVF by ED Sepsis - with tachycardia, fever, empiric antibiotics and fluids given a ppropriately Lactic acidosis - likely related to hypoxemia, sepsis, will trend. FEN - General diet PPX - Lovenox FULL CODE Dispo - inpatient MAYANKFEL,PAULINO Chen MD Sep 22, 2019 08:00
[2019-09-22] MEDS ORDERED: ACETAMINOPHEN 325 MG TABLET. PO PRN (08:15)
[2019-09-22] MEDS ORDERED: ALBUMIN HUMAN 5% 500 ML IV ONE (09:30)
[2019-09-22] MEDS ORDERED: IV NORMAL SALINE 250ML 250 ML IV ONE (10:45)
[2019-09-22 10:49] VITALS: BP 92/58
[2019-09-22] MEDS: IV NORMAL SALINE 1000ML BAG 1,000 ML IV SCH ×2 (10:58→16:13)
[2019-09-22] MEDS: IPRATRPIUM/ALBUTEROL 0.5/2.5MG 3 ML NEBU. NEB SCH ×3 (12:00→20:27)
[2019-09-22 12:02] VITALS: BP 86/46
[2019-09-22] MEDS ORDERED: levOFLOXacin PER PHARMACY. MC PRN (12:15)
[2019-09-22] MEDS ORDERED: DAPTOmycin (GENERIC) IVPB 430 MG in IV NORMAL SALINE 50ML 50 ML IV SCH (15:00)
[2019-09-22 15:04] VITALS: BP 104/55
--- NOTE | 2019-09-22 15:14 | PDOC ---
Infectious Disease Note Vital Sign Vital Signs Vital Signs Date Time Temp Pulse Resp B/P (MAP) Pulse Ox O2 Delivery O2 Flow Rate FiO2 09/22/19 12:33 97 Nasal Cannula 5.0 09/22/19 12:02 92 18 86/46 (59) 09/22/19 10:49 97.9 97.9 Labs Lab Laboratory Tests Test 09/22/19 06:10 09/22/19 06:18 09/22/19 06:23 09/22/19 09:23 White Blood Count 8.3 x10^3/uL (4.0-11.0) Red Blood Count 4.42 x10^6/uL (3.50-5.40) Hemoglobin 13.8 g/dL (12.0-15.5) Hematocrit 41.6 % (36.0-47.0) Mean Corpuscular Volume 94 fL (79-100) Mean Corpuscular Hemoglobin 31 pg (25-35) Mean Corpuscular Hemoglobin Concent 33 g/dL (31-37) Red Cell Distribution Width 14.7 % (11.5-14.5) Platelet Count 210 x10^3/uL (140-400) Neutrophils (%) (Auto) 96 % (31-73) Lymphocytes (%) (Auto) 2 % (24-48) Monocytes (%) (Auto) 2 % (0-9) Eosinophils (%) (Auto) 0 % (0-3) Basophils (%) (Auto) 0 % (0-3) Neutrophils # (Auto) 8.0 x10^3/uL (1.8-7.7) Lymphocytes # (Auto) 0.2 x10^3/uL (1.0-4.8) Monocytes # (Auto) 0.2 x10^3/uL (0.0-1.1) Eosinophils # (Auto) 0.0 x10^3/uL (0.0-0.7) Basophils # (Auto) 0.0 x10^3/uL (0.0-0.2) Segmented Neutrophils % 60 % (35-66) Band Neutrophils % 28 % (0-9) Lymphocytes % 5 % (24-48) Monocytes % 4 % (0-10) Metamyelocytes % 3 % (0-0) Toxic Vacuolation Present Dohle Bodies Present Platelet Estimate Adequate (ADEQUATE) Giant Platelets Occ Sodium Level 142 mmol/L (136-145) Potassium Level 3.4 mmol/L (3.5-5.1) Chloride Level 103 mmol/L (98-107) Carbon Dioxide Level 25 mmol/L (21-32) Anion Gap 14 (6-14) Blood Urea Nitrogen 52 mg/dL (7-20) Creatinine 1.5 mg/dL (0.6-1.0) Estimated GFR (Cockcroft-Gault) 40.4 BUN/Creatinine Ratio 35 (6-20) Glucose Level 106 mg/dL (70-99) Calcium Level 9.0 mg/dL (8.5-10.1) Total Bilirubin 0.9 mg/dL (0.2-1.0) Aspartate Amino Transf (AST/SGOT) 27 U/L (15-37) Alanine Aminotransferase (ALT/SGPT) 14 U/L (14-59) Alkaline Phosphatase 52 U/L (46-116) Troponin I Quantitative < 0.017 ng/mL (0.000-0.055) GI-Uzi-I-Type Natriuretic Peptide 1021 pg/mL (0-449) Total Protein 6.2 g/dL (6.4-8.2) Albumin 2.7 g/dL (3.4-5.0) Albumin/Globulin Ratio 0.8 (1.0-1.7) Procalcitonin 39.05 ng/mL (0.00-0.10) Lactic Acid Level 3.5 mmol/L (0.4-2.0) 2.4 mmol/L (0.4-2.0) Influenza Type A Antigen Negative (NEGATIVE) Influenza Type B Antigen Negative (NEGATIVE) Objective Assessment sepsis - POA 09/22 PCN allergy - rash -uncertain if ever had Amox/Augmentin/Cephalexin - etc. Bandemia LL pneumonia NAM H/o lung CA 2019 s/p lobectomy and chemo Tobacco abuse Plan Plan of Care Dose Meropeenem/Dapto/Doxy/zyvox D/c levofloxacin strep antigen/mycoplasma/legionella F/u labs and cults Thank you # [phone] JONAH CALDERA MD Sep 22, 2019 15:14
[2019-09-22] MEDS: HEPARIN for SUB-Q USE 5,000 UNIT/ML VIAL. SQ SCH ×2 (16:29→22:55)
[2019-09-22] MEDS: MEROPENEM 500 MG in IV NORMAL SALINE 50ML 50 ML IV SCH (18:16)
[2019-09-22 19:15] VITALS: BP 122/57
[2019-09-22 19:26] LABS: MYCOPLASMA PATIENT POSITIVE (NEGATIVE)
--- NOTE | 2019-09-22 21:47 | CONS ---
DATE OF CONSULTATION: 09/22/2019 ATTENDING PHYSICIAN: Dr. Valdez. REASON FOR CONSULTATION: Pneumonia, sepsis. HISTORY OF PRESENT ILLNESS: The patient is an 79-year-old female who has been a smoker for 60 years. She has a history of cancer, status post right upper lobectomy. She said she had chemo as well. This probably has been like 10-15 years ago. She was brought into the hospital complaining of shortness of breath. She was having some cough as well. She was hypoxic on arrival despite on 6 liters of oxygen, sats were in the mid 80s. The patient was given treatment. She underwent chest x-ray, which was reviewed by me. She has extensive consolidation involving the left lower lobe. There were some mildly prominent interstitial markings as well. She states she has not been eating well for the past many months. She has lost about 20 pounds during that time. No headaches, no nausea, vomiting, no diarrhea, no dysuria, no focal weakness. The patient was hypotensive on arrival with a pressure in the 60s and 70s. She received 3 liters of IV fluids per sepsis protocol. Her blood pressure latest is 86 systolic. PAST MEDICAL HISTORY: 1. Significant for history of right upper lobe adenocarcinoma, status post right upper lobectomy. This was probably 10 years ago. She said she did receive chemo as well. 2. History of DVT at the time of diagnosis of lung cancer. No pulmonary embolism. 3. Long history of tobacco use at least 60 years, suspect underlying severe COPD. PAST SURGICAL HISTORY: Right upper lobectomy. ALLERGIES: PENICILLIN. MEDICATIONS: Reviewed that were given in the ER including Levaquin. REVIEW OF SYSTEMS: A 12-point system obtained. Pertinent positives discussed in my history of present illness, otherwise noncontributory. All systems that were negative were reviewed as well. SOCIAL HISTORY: Smoker for 60 years and still smokes cigarettes. PHYSICAL EXAMINATION: VITAL SIGNS: Reviewed. She appears to be ill. Blood pressure systolic 86. Pulse ox 99% on 6 liters. She is afebrile with a T-max of 100.5. HEENT: Sclerae nonicteric. NECK: Supple. LUNGS: With crackles, left base. CARDIOVASCULAR: With a regular rate. ABDOMEN: Soft, nontender. EXTREMITIES: With no pitting edema. LABORATORY DATA: Reviewed. White cell count 8.3, hemoglobin 13.8 and platelets are 210. Her procalcitonin was 39. Lactic acid was 3.5, now 2.4. BUN 52, creatinine 1.5. IMPRESSION: 1. Acute hypoxic respiratory failure secondary to underlying chronic obstructive pulmonary disease and extensive pneumonia involving the left lower lobe. 2. Underlying suspected severe chronic obstructive pulmonary disease. 3. History of lung cancer, adenocarcinoma, status post right upper lobectomy at least 10 years ago. 4. History of deep venous thrombosis around the time when the cancer was diagnosed and treated. No history of pulmonary embolism. 5. Acute kidney injury secondary to dehydration. 6. Hypokalemia. 7. Moderate protein-calorie malnutrition. 8. Influenza screen negative. 9. Sepsis with early shock. RECOMMENDATIONS: 1. Continue present oxygen to keep saturation 96% and above. 2. Monitor blood pressure closely. She has already received 3 liters of IV fluids. If the blood pressure remains low, then we will transfer to the ICU and start vasopressor. 3. Continue current IV fluids. 4. Continue present Levaquin. 5. Obtain noncontrast CT chest to better assess for severity of pneumonia. 6. Continue DuoNeb. 7. Smoking cessation counseling provided. 8. Follow electrolytes. 9. Discussed with RN and we will follow along with you. Critical care time 33 minutes. SIM MOYA MD DR: ÁNGEL/cecilia JOB#: [id number] / [id number]
[2019-09-22] MEDS: LINEZOLID 600 MG TABLET PO SCH (22:47)
[2019-09-22 23:15] VITALS: BP 98/43
[2019-09-23] MEDS: MEROPENEM 500 MG in IV NORMAL SALINE 50ML 50 ML IV SCH ×4 (00:16→18:12)
[2019-09-23] MEDS: IV NORMAL SALINE 1000ML BAG 1,000 ML IV SCH (00:16)
[2019-09-23 03:15] VITALS: BP 104/56
--- NOTE | 2019-09-23 03:51 | CONS ---
DATE OF CONSULTATION: 09/22/2019 INFECTIOUS DISEASE CONSULTATION LOCATION: The patient is in room #652. REQUESTING PHYSICIAN: Emmanuel Marte MD REASON FOR CONSULTATION: Sepsis. HISTORY OF PRESENT ILLNESS: The patient is an 79-year-old female with history of right upper lobe adenocarcinoma, underwent a right upper lobe lobectomy, does have a history of chemotherapy but has not had any treatment since 2016. She states last Thursday, she began to feel ill with some coughing and congestion. She has been around some young kids who had been ill. She has been taking some Robitussin; however, despite this, she began to start run fevers on this past Thursday. She developed weakness, cough, chills and shortness of air. On arrival to the ER, she was on 6 liters, satting 85-87%. Additionally, she was in acute renal failure. She has a history of PENICILLIN ALLERGY, she was placed on levofloxacin. Currently, she is lying in bed, she feels tired, does have some sputum production. She had a little loose stool before, but this has been now resolved. She did not have any complications passing her urine. Denies any falls or trauma. Denies any rashes. 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 REVIEW OF SYSTEMS: Otherwise negative. ALLERGIES: LISTED PENICILLIN, UNCERTAIN WHAT HAPPENS, SHE GETS HIVES WHEN SHE WENT OUT IN THE SUN A LONG TIME AGO SHE STATES, DOES NOT REMEMBER IF SHE HAS EVER HAD AMOXICILLIN, AUGMENTIN AND CEPHALEXIN OR KEFLEX. SOCIAL HISTORY: She continues to smoke, previously worked as a maid. She has some children she around that has been ill. No alcohol. FAMILY HISTORY: Mother had lung cancer. Father had some form of malignancy, he was also a smoker. Sister had endometrial carcinoma. CURRENT MEDICATIONS: Include albumin, levofloxacin q. 48 hours, Tylenol, albuterol and Atrovent. PHYSICAL EXAMINATION: VITAL SIGNS: She has been afebrile. T-max was 100.5, currently temperature 98, pulse 96, respirations 18, blood pressure 104/55 and satting 96% on 5 liters. Blood pressures have been as low as 70s/40s. CONSTITUTIONAL: She is lying in bed. She is cooperative. She is in no acute distress. HEENT: Pupils are equal and reactive. She has normal conjunctivae. Oral cavity, pharynx is without signs of thrush that was clear. NECK: Supple. LUNGS: Have coarse sounds bilaterally. HEART: S1, S2. ABDOMEN: Flat, soft, nontender, no guarding, no rebound. EXTREMITIES: Without clubbing, cyanosis or gross edema. SKIN: Warm to touch without signs of rash. NEUROLOGIC: She is nonfocal and appropriate. LABORATORY DATA: White count 8.3, hemoglobin 13.8, platelets of 210 with 28 bands, 60 segs, 5 lymphs. Lactic acid is down to 2.4, initial value was 3.5. Procalcitonin of 39.05. Creatinine was 1.5, glucose of 106. Influenza screen was negative. Chest x-ray, left upper lobe consolidation, likely pneumonia or atelectasis. IMPRESSION: 1. Sepsis present on admission, 09/22/2019. 2. PENICILLIN ALLERGY, rash, uncertain if she has ever had amoxicillin, Augmentin and cephalexin. 3. Bandemia. 4. Left lower lobe pneumonia. 5. Acute kidney injury. 6. History of lung cancer, status post lobectomy and chemotherapy. 7. Tobacco abuse, ongoing. RECOMMENDATIONS: We will dose meropenem, daptomycin for blood, Zyvox for lung and doxycycline for atypicals, discontinue levofloxacin. Obtain a strep antigen, Mycoplasma, IgM or legionella antigen. Follow up labs and cultures. Thank you for allowing me to participate in the patient's care. If you have any questions, please do not hesitate to contact me. JONAH CALDERA MD DR: SRIKANTH/cecilia JOB#: [id number] / [id number] OMAR
[2019-09-23 06:19] LABS: CALCIUM 9.4 mg/dL (8.5-10.1); GFR 64.6; POTASSIUM 3.2 mmol/L (3.5-5.1)
[2019-09-23 06:49] LABS: BASO % 0 % (0-3); EOS % 0 % (0-3); HEMATOCRIT 37.6 % (36.0-47.0); HEMOGLOBIN 12.2 g/dL (12.0-15.5); LYMPH # 0.3 x10^3/uL (1.0-4.8); LYMPH % 3 % (24-48); MEAN CORPUSCULAR HEMOGLOBIN 31 pg (25-35); MEAN CORPUSCULAR HGB CONC 33 g/dL (31-37); MEAN CORPUSCULAR VOLUME 96 fL (79-100); MONO # 0.1 x10^3/uL (0.0-1.1); MONO % 1 % (0-9); NEUT % 96 % (31-73); PLATELET COUNT 178 x10^3/uL (140-400); RED BLOOD COUNT 3.93 x10^6/uL (3.50-5.40); RED CELL DISTRIBUTION WIDTH 15.2 % (11.5-14.5); WHITE BLOOD COUNT 9.4 x10^3/uL (4.0-11.0)
[2019-09-23 07:00] VITALS: BP 111/52
[2019-09-23] MEDS: IPRATRPIUM/ALBUTEROL 0.5/2.5MG 3 ML NEBU. NEB SCH ×3 (07:03→20:00)
--- NOTE | 2019-09-23 08:13 | PDOC ---
Infectious Disease Note Subjective Subjective Better some Still Cough with min sputum Less chill and sweat No N/V/D/dysuria or rash ROS ROS o/w neg Vital Sign Vital Signs Vital Signs Date Time Temp Pulse Resp B/P (MAP) Pulse Ox O2 Delivery O2 Flow Rate FiO2 09/23/19 07:04 97 Nasal Cannula 5.0 09/23/19 03:15 98.2 91 19 104/56 (72) 98.2 Physical Exam PHYSICAL EXAM CONSTITUTIONAL: She is lying in bed. She is cooperative. She is in no acute distress. looks a little better HEENT: Pupils are equal and reactive. She has normal conjunctivae. Oral cavity, pharynx is without signs of thrush that was clear. NECK: Supple. LUNGS: Still coarse sounds bilaterally but better. HEART: S1, S2. ABDOMEN: Flat, soft, nontender, no guarding, no rebound. EXTREMITIES: Without clubbing, cyanosis or gross edema. SKIN: Warm to touch without signs of rash. NEUROLOGIC: She is nonfocal and appropriate. Labs Lab Laboratory Tests Test 09/22/19 09:23 09/23/19 04:10 Lactic Acid Level 2.4 mmol/L (0.4-2.0) White Blood Count 9.4 x10^3/uL (4.0-11.0) Red Blood Count 3.93 x10^6/uL (3.50-5.40) Hemoglobin 12.2 g/dL (12.0-15.5) Hematocrit 37.6 % (36.0-47.0) Mean Corpuscular Volume 96 fL (79-100) Mean Corpuscular Hemoglobin 31 pg (25-35) Mean Corpuscular Hemoglobin Concent 33 g/dL (31-37) Red Cell Distribution Width 15.2 % (11.5-14.5) Platelet Count 178 x10^3/uL (140-400) Neutrophils (%) (Auto) 96 % (31-73) Lymphocytes (%) (Auto) 3 % (24-48) Monocytes (%) (Auto) 1 % (0-9) Eosinophils (%) (Auto) 0 % (0-3) Basophils (%) (Auto) 0 % (0-3) Neutrophils # (Auto) 9.0 x10^3/uL (1.8-7.7) Lymphocytes # (Auto) 0.3 x10^3/uL (1.0-4.8) Monocytes # (Auto) 0.1 x10^3/uL (0.0-1.1) Eosinophils # (Auto) 0.0 x10^3/uL (0.0-0.7) Basophils # (Auto) 0.0 x10^3/uL (0.0-0.2) Sodium Level 143 mmol/L (136-145) Potassium Level 3.2 mmol/L (3.5-5.1) Chloride Level 109 mmol/L (98-107) Carbon Dioxide Level 20 mmol/L (21-32) Anion Gap 14 (6-14) Blood Urea Nitrogen 30 mg/dL (7-20) Creatinine 1.0 mg/dL (0.6-1.0) Estimated GFR (Cockcroft-Gault) 64.6 Glucose Level 81 mg/dL (70-99) Calcium Level 9.4 mg/dL (8.5-10.1) Micro Microbiology 09/22/19 Blood Culture - Preliminary, Resulted NO GROWTH AFTER 1 DAY Objective Assessment sepsis - POA 09/22 Mycoplasma + PCN allergy - rash -uncertain if ever had Amox/Augmentin/Cephalexin - etc. Bandemia LL pneumonia NAM H/o lung CA 2019 s/p lobectomy and chemo Tobacco abuse Plan Plan of Care D/c doxy and dose Azithromycin Cont Meropenem/Dapto//zyvox for now f/u cults Needs Isolation contact and droplet strep antigen/legionella F/u labs and cults JONAH CALDERA MD Sep 23, 2019 08:13
[2019-09-23 08:31] LABS: % LYMPHS 5 % (24-48); % MONOS 3 % (0-10)
[2019-09-23 08:33] LABS: % BANDS 22 % (0-9); % SEGS 70 % (35-66)
[2019-09-23 08:34] LABS: ACANTHOCYTES OCC; ANISOCYTOSIS SLIGHT; PLT ESTIMATE ADEQUATE (ADEQUATE); TOXIC GRANULATION PRESENT; TOXIC VACUOLATION PRESENT
[2019-09-23] MEDS ORDERED: FLU VAX QS 2019-20 (36MOS+)/PF 0.5 ML SYRINGE. VAX IM ONE (09:00)
[2019-09-23] MEDS ORDERED: DOXYCYCLINE HYCLATE 100 MG TABLET PO SCH (09:00)
[2019-09-23] MEDS: LINEZOLID 600 MG TABLET PO SCH ×2 (09:47→21:46)
[2019-09-23] MEDS: HEPARIN for SUB-Q USE 5,000 UNIT/ML VIAL. SQ SCH ×2 (09:56→22:01)
[2019-09-23 11:00] VITALS: BP 117/56
--- NOTE | 2019-09-23 11:08 | PDOC ---
PROGRESS NOTES History of Present Illness History of Present Illness Images Images CXR - 1. Left lower lobe consolidation likely pneumonia or atelectasis. Follow- up to resolution. 2. Prominent bilateral digital lung markings likely mild congestive changes. hx Pneumonia, right upper lobectomy , lung cancer, breast cancer VTE Prophylaxis Ordered VTE Prophylaxis Devices: Yes VTE Pharmacological Prophylaxi: Yes Assessment/Plan Assessment/Plan A/P: Acute hypoxia LLL infiltrate - almost certainly pneumonia. Likely gram negative given her h/o lung cancer and structural lung disease. Levaquin appropriate. Pulm consulted. extensive basal pneumonia. RUL small lung herniation likely related to lobectomy NAM - likely vasomotor nephropathy, started on IVF by ED Sepsis - with tachycardia, fever, empiric antibiotics and fluids given appropriately Lactic acidosis - likely related to hypoxemia, sepsis, will trend. FEN - General diet PPX - Lovenox FULL CODE Dispo - inpatient pulm consult 36 min pt exam, chart review, > 50% of time spent with exam, chart review, pt care coordination Vitals Vitals Vital Signs Date Time Temp Pulse Resp B/P (MAP) Pulse Ox O2 Delivery O2 Flow Rate FiO2 09/23/19 11:00 95 Nasal Cannula 5.0 09/23/19 07:00 99.0 99 20 111/52 (71) 99.0 Physical Exam Physical Exam CONSTITUTIONAL: She is lying in bed. She is cooperative. She is in mild acute distress. looks a little better HEENT: Pupils are equal and reactive. She has normal conjunctivae. Oral cavity, pharynx is without signs of thrush that was clear. NECK: Supple. LUNGS: Still coarse sounds bilaterally HEART: S1, S2. ABDOMEN: Flat, soft, nontender, no guarding, no rebound. EXTREMITIES: Without clubbing, cyanosis or gross edema. SKIN: Warm to touch without signs of rash. NEUROLOGIC: She is nonfocal and appropriate. General: Alert, Oriented X3, Cooperative, mild distress Lungs: Other Abdomen: Normal bowel sounds, Soft, No tenderness, No hepatosplenomegaly, No masses Extremities: No clubbing, No cyanosis, No edema, Normal pulses, No tenderness/swelling Skin: No rashes, No breakdown, No significant lesion Labs LABS PATIENT: YUN JETT ACCOUNT: [id number] : 1940 LOCATION: [address] [place] [address] AGE: 79 SEX: F EXAM STATUS: ADM IN ORD. PHYSICIAN: SIM MOYA MD REASON: pneumonia left LL, h/o lung cancer RUL lobectomy PROCEDURE: CT CHEST WO CONTRAST Examination: CT CHEST WO CONTRAST History: Pneumonia, right upper lobectomy , lung cancer, breast cancer Comparison/Correlation: 03/22/2018, 10/01/2018, 04/06/2019 CT chest without contrast exam Findings: Axial images of chest were obtained without contrast. Sagittal and coronal reformatted images provided. Reversible bilateral pleural effusions are present. Significant left lower lobe consolidation is present. Right costophrenic sulcus consolidation also is present. Right upper lobectomy noted. Anterolateral right lower lung field herniation into the chest wall is again seen. There is of a mildly greater extent than on the prior exam. No suspicious new mass. Coronary arterial calcifications present. Calcified subcarinal lymph node is present. Heart size unremarkable. Marked calcification involving the thoracic aorta is present. Partially visualized upper abdomen is unremarkable. Surgical clips are present involving the right lateral breast region. Bony structures are grossly unremarkable. Impression: Significant bibasilar lower lobe consolidation much greater on the left. Very small pleural effusions. Emphysema. Mild herniation of right lung between the fifth and sixth ribs anterolaterally again seen although greater in extent. No pneumothorax. PQRS Compliance Statement: One or more of the following individualized dose reduction techniques were utilized for this examination: 1. Automated exposure control 2. Adjustment of the mA and/or kV according to patient size 3. Use of iterative reconstruction technique Electronically signed by: Robbie Rice MD (09/23/2019 1:40 PM) [facility] Laboratory Tests Test 09/23/19 04:10 White Blood Count 9.4 x10^3/uL (4.0-11.0) Red Blood Count 3.93 x10^6/uL (3.50-5.40) Hemoglobin 12.2 g/dL (12.0-15.5) Hematocrit 37.6 % (36.0-47.0) Mean Corpuscular Volume 96 fL (79-100) Mean Corpuscular Hemoglobin 31 pg (25-35) Mean Corpuscular Hemoglobin Concent 33 g/dL (31-37) Red Cell Distribution Width 15.2 % (11.5-14.5) Platelet Count 178 x10^3/uL (140-400) Neutrophils (%) (Auto) 96 % (31-73) Lymphocytes (%) (Auto) 3 % (24-48) Monocytes (%) (Auto) 1 % (0-9) Eosinophils (%) (Auto) 0 % (0-3) Basophils (%) (Auto) 0 % (0-3) Neutrophils # (Auto) 9.0 x10^3/uL (1.8-7.7) Lymphocytes # (Auto) 0.3 x10^3/uL (1.0-4.8) Monocytes # (Auto) 0.1 x10^3/uL (0.0-1.1) Eosinophils # (Auto) 0.0 x10^3/uL (0.0-0.7) Basophils # (Auto) 0.0 x10^3/uL (0.0-0.2) Segmented Neutrophils % 70 % (35-66) Band Neutrophils % 22 % (0-9) Lymphocytes % 5 % (24-48) Monocytes % 3 % (0-10) Toxic Granulation Present Toxic Vacuolation Present Dohle Bodies Present Platelet Estimate Adequate (ADEQUATE) Giant Platelets Present Anisocytosis Slight Acanthocytes Occ Sodium Level 143 mmol/L (136-145) Potassium Level 3.2 mmol/L (3.5-5.1) Chloride Level 109 mmol/L (98-107) Carbon Dioxide Level 20 mmol/L (21-32) Anion Gap 14 (6-14) Blood Urea Nitrogen 30 mg/dL (7-20) Creatinine 1.0 mg/dL (0.6-1.0) Estimated GFR (Cockcroft-Gault) 64.6 Glucose Level 81 mg/dL (70-99) Calcium Level 9.4 mg/dL (8.5-10.1) Assessment and Plan Assessmemt and Plan Problems Medical Problems: (1) Acute kidney injury Status: Acute (2) Community acquired pneumonia Status: Acute (3) Dehydration Status: Acute (4) Hypoxemia Status: Acute (5) Shortness of breath Status: Acute Comment Review of Relevant I have reviewed the following items byron (where applicable) has been applied. Labs Laboratory Tests Test 09/22/19 06:10 09/22/19 06:18 09/22/19 06:23 09/22/19 09:23 White Blood Count 8.3 x10^3/uL (4.0-11.0) Red Blood Count 4.42 x10^6/uL (3.50-5.40) Hemoglobin 13.8 g/dL (12.0-15.5) Hematocrit 41.6 % (36.0-47.0) Mean Corpuscular Volume 94 fL (79-100) Mean Corpuscular Hemoglobin 31 pg (25-35) Mean Corpuscular Hemoglobin Concent 33 g/dL (31-37) Red Cell Distribution Width 14.7 % (11.5-14.5) Platelet Count 210 x10^3/uL (140-400) Neutrophils (%) (Auto) 96 % (31-73) Lymphocytes (%) (Auto) 2 % (24-48) Monocytes (%) (Auto) 2 % (0-9) Eosinophils (%) (Auto) 0 % (0-3) Basophils (%) (Auto) 0 % (0-3) Neutrophils # (Auto) 8.0 x10^3/uL (1.8-7.7) Lymphocytes # (Auto) 0.2 x10^3/uL (1.0-4.8) Monocytes # (Auto) 0.2 x10^3/uL (0.0-1.1) Eosinophils # (Auto) 0.0 x10^3/uL (0.0-0.7) Basophils # (Auto) 0.0 x10^3/uL (0.0-0.2) Segmented Neutrophils % 60 % (35-66) Band Neutrophils % 28 % (0-9) Lymphocytes % 5 % (24-48) Monocytes % 4 % (0-10) Metamyelocytes % 3 % (0-0) Toxic Vacuolation Present Dohle Bodies Present Platelet Estimate Adequate (ADEQUATE) Giant Platelets Occ Sodium Level 142 mmol/L (136-145) Potassium Level 3.4 mmol/L (3.5-5.1) Chloride Level 103 mmol/L (98-107) Carbon Dioxide Level 25 mmol/L (21-32) Anion Gap 14 (6-14) Blood Urea Nitrogen 52 mg/dL (7-20) Creatinine 1.5 mg/dL (0.6-1.0) Estimated GFR (Cockcroft-Gault) 40.4 BUN/Creatinine Ratio 35 (6-20) Glucose Level 106 mg/dL (70-99) Calcium Level 9.0 mg/dL (8.5-10.1) Total Bilirubin 0.9 mg/dL (0.2-1.0) Aspartate Amino Transf (AST/SGOT) 27 U/L (15-37) Alanine Aminotransferase (ALT/SGPT) 14 U/L (14-59) Alkaline Phosphatase 52 U/L (46-116) Troponin I Quantitative < 0.017 ng/mL (0.000-0.055) [id number]-Type Natriuretic Peptide 1021 pg/mL (0-449) Total Protein 6.2 g/dL (6.4-8.2) Albumin 2.7 g/dL (3.4-5.0) Albumin/Globulin Ratio 0.8 (1.0-1.7) Procalcitonin 39.05 ng/mL (0.00-0.10) Mycoplasma Serology (LAB) Positive (NEGATIVE) Lactic Acid Level 3.5 mmol/L (0.4-2.0) 2.4 mmol/L (0.4-2.0) Influenza Type A Antigen Negative (NEGATIVE) Influenza Type B Antigen Negative (NEGATIVE) Test 09/23/19 04:10 White Blood Count 9.4 x10^3/uL (4.0-11.0) Red Blood Count 3.93 x10^6/uL (3.50-5.40) Hemoglobin 12.2 g/dL (12.0-15.5) Hematocrit 37.6 % (36.0-47.0) Mean Corpuscular Volume 96 fL (79-100) Mean Corpuscular Hemoglobin 31 pg (25-35) Mean Corpuscular Hemoglobin Concent 33 g/dL (31-37) Red Cell Distribution Width 15.2 % (11.5-14.5) Platelet Count 178 x10^3/uL (140-400) Neutrophils (%) (Auto) 96 % (31-73) Lymphocytes (%) (Auto) 3 % (24-48) Monocytes (%) (Auto) 1 % (0-9) Eosinophils (%) (Auto) 0 % (0-3) Basophils (%) (Auto) 0 % (0-3) Neutrophils # (Auto) 9.0 x10^3/uL (1.8-7.7) Lymphocytes # (Auto) 0.3 x10^3/uL (1.0-4.8) Monocytes # (Auto) 0.1 x10^3/uL (0.0-1.1) Eosinophils # (Auto) 0.0 x10^3/uL (0.0-0.7) Basophils # (Auto) 0.0 x10^3/uL (0.0-0.2) Segmented Neutrophils % 70 % (35-66) Band Neutrophils % 22 % (0-9) Lymphocytes % 5 % (24-48) Monocytes % 3 % (0-10) Toxic Granulation Present Toxic Vacuolation Present Dohle Bodies Present Platelet Estimate Adequate (ADEQUATE) Giant Platelets Present Anisocytosis Slight Acanthocytes Occ Sodium Level 143 mmol/L (136-145) Potassium Level 3.2 mmol/L (3.5-5.1) Chloride Level 109 mmol/L (98-107) Carbon Dioxide Level 20 mmol/L (21-32) Anion Gap 14 (6-14) Blood Urea Nitrogen 30 mg/dL (7-20) Creatinine 1.0 mg/dL (0.6-1.0) Estimated GFR (Cockcroft-Gault) 64.6 Glucose Level 81 mg/dL (70-99) Calcium Level 9.4 mg/dL (8.5-10.1) Laboratory Tests Test 09/23/19 04:10 White Blood Count 9.4 x10^3/uL (4.0-11.0) Red Blood Count 3.93 x10^6/uL (3.50-5.40) Hemoglobin 12.2 g/dL (12.0-15.5) Hematocrit 37.6 % (36.0-47.0) Mean Corpuscular Volume 96 fL (79-100) Mean Corpuscular Hemoglobin 31 pg (25-35) Mean Corpuscular Hemoglobin Concent 33 g/dL (31-37) Red Cell Distribution Width 15.2 % (11.5-14.5) Platelet Count 178 x10^3/uL (140-400) Neutrophils (%) (Auto) 96 % (31-73) Lymphocytes (%) (Auto) 3 % (24-48) Monocytes (%) (Auto) 1 % (0-9) Eosinophils (%) (Auto) 0 % (0-3) Basophils (%) (Auto) 0 % (0-3) Neutrophils # (Auto) 9.0 x10^3/uL (1.8-7.7) Lymphocytes # (Auto) 0.3 x10^3/uL (1.0-4.8) Monocytes # (Auto) 0.1 x10^3/uL (0.0-1.1) Eosinophils # (Auto) 0.0 x10^3/uL (0.0-0.7) Basophils # (Auto) 0.0 x10^3/uL (0.0-0.2) Segmented Neutrophils % 70 % (35-66) Band Neutrophils % 22 % (0-9) Lymphocytes % 5 % (24-48) Monocytes % 3 % (0-10) Toxic Granulation Present Toxic Vacuolation Present Dohle Bodies Present Platelet Estimate Adequate (ADEQUATE) Giant Platelets Present Anisocytosis Slight Acanthocytes Occ Sodium Level 143 mmol/L (136-145) Potassium Level 3.2 mmol/L (3.5-5.1) Chloride Level 109 mmol/L (98-107) Carbon Dioxide Level 20 mmol/L (21-32) Anion Gap 14 (6-14) Blood Urea Nitrogen 30 mg/dL (7-20) Creatinine 1.0 mg/dL (0.6-1.0) Estimated GFR (Cockcroft-Gault) 64.6 Glucose Level 81 mg/dL (70-99) Calcium Level 9.4 mg/dL (8.5-10.1) Microbiology 09/22/19 Blood Culture - Preliminary, Resulted NO GROWTH AFTER 1 DAY Medications Current Medications Albuterol/ Ipratropium (Duoneb) 3 ml 1X ONCE NEB Last administered on 9at 05:49; Start 09/22/19 at 05:45; Stop 09/22/19 at 05:50; Status DC Levofloxacin/ Dextrose 150 ml @ 100 mls/hr 1X ONCE IV Last administered on 09/22/19at 07:21; Start 09/22/19 at 07:00; Stop 09/22/19 at 08:29; Status DC Sodium Chloride 1,000 ml @ 250 mls/hr 1X ONCE IV Last administered on 09/22/19at 07:22; Start 09/22/19 at 07:00; Stop 09/22/19 at 10:59; Status DC Acetaminophen (Tylenol) 1,000 mg 1X ONCE PO Last administered on 09/22/19at 07:21; Start 09/22/19 at 07:00; Stop 09/22/19 at 07:01; Status DC Sodium Chloride 1,000 ml @ 125 mls/hr Q8H IV Last administered on 09/23/19at 00:16; Start 09/22/19 at 08:03; Stop 09/23/19 at 08:02; Status DC Acetaminophen (Tylenol) 650 mg PRN Q4HRS PRN PO FEVER Last administered on 09/22/19at 22:46; Start 09/22/19 at 08:15; Stop 09/23/19 at 08:14; Status DC Albuterol/ Ipratropium (Duoneb) 3 ml RTQID NEB Last administered on 09/23/19at 07:03; Start 09/22/19 at 12:00; Stop 09/23/19 at 11:59 Sodium Chloride 1,000 ml @ 1,000 mls/hr 1X ONCE IV Last administered on 09/22/19at 08:55; Start 09/22/19 at 09:00; Stop 09/22/19 at 09:59; Status DC Albumin Human 500 ml @ 125 mls/hr 1X ONCE IV Last administered on 09/22/19at 09:33; Start 09/22/19 at 09:30; Stop 09/22/19 at 13:29; Status DC Sodium Chloride 250 ml @ 250 mls/hr 1X ONCE IV Last administered on 09/22/19at 10:56; Start 09/22/19 at 10:45; Stop 09/22/19 at 11:44; Status DC Influenza Virus Vaccine Quadrival (Afluria Quad 2019-20 (3yr Up) Syringe) 0.5 ml ONCE ONCE VAX IM ; Start 09/23/19 at 09:00; Stop 09/23/19 at 09:01; Status DC Levofloxacin/ Dextrose (Levaquin Per Pharmacy) 1 each PRN DAILY PRN MC SEE COMMENTS; Start 09/22/19 at 12:15; Stop 09/22/19 at 15:06; Status DC Levofloxacin/ Dextrose 150 ml @ 100 mls/hr Q48H IV ; Start 09/24/19 at 06:00; Stop 09/22/19 at 15:06; Status DC Meropenem 500 mg/ Sodium Chloride 50 ml @ 100 mls/hr Q6HRS IV Last administered on 09/23/19at 06:33; Start 09/22/19 at 18:00 Daptomycin 430 mg/ Sodium Chloride 50 ml @ 100 mls/hr Q48H IV Last administered on 09/22/19at 16:13; Start 09/22/19 at 15:00; Stop 09/23/19 at 08:50; Status DC Linezolid (Zyvox) 600 mg BID PO Last administered on 09/23/19at 09:47; Start 09/22/19 at 21:00 Doxycycline Hyclate (Vibra-Tab) 100 mg BID PO ; Start 09/23/19 at 09:00; Stop 09/23/19 at 08:50; Status DC Heparin Sodium (Porcine) (Heparin Sodium) 5,000 unit BID SQ Last administered on 09/23/19at 09:56; Start 09/22/19 at 16:00 Daptomycin 430 mg/ Sodium Chloride 50 ml @ 100 mls/hr Q24H IV ; Start 09/23/19 at 15:00 Azithromycin (Zithromax) 500 mg DAILY PO ; Start 09/23/19 at 09:00 Active Scripts Active Oxycodone-Acetaminophen 5-325 (Oxycodone Hcl/Acetaminophen) 1 Each Tablet 1 Tab PO PRN Q4HRS PRN Latanoprost 2.5 Ml Drops 1 Drop OU QHS Duoneb 0.5-3(2.5) Mg/3 Ml (Albuterol/Ipratropium) 3 Ml Ampul.neb 3 Ml NEB RTQID Reported Tamoxifen Citrate 20 Mg Tablet 10 Mg PO BID Latanoprost 2.5 Ml Drops 1 Ml OP QHS Triamterene-Hctz 37.5-25 Mg Cp (Triamterene/Hydrochlorothiazid) 1 Each Capsule 1 Each PO DAILY Aspirin Ec (Aspirin) 81 Mg Tablet.dr 81 Mg PO DAILY Vitamin D-3 (Cholecalciferol (Vitamin D3)) 2,000 Unit Capsule 2,000 Unit PO DAILY Vitals/I & O Vital Sign - Last 24 Hours 12/1209/22/19 09/22/19 09/22/19 12:02 12:33 15:04 15:12 Temp 98.0 98.0 Pulse 92 96 Resp 18 18 B/P (MAP) 86/46 (59) 104/55 (71) Pulse Ox 99 97 96 O2 Delivery Nasal Cannula Nasal Cannula Nasal Cannula Nasal Cannula O2 Flow Rate 5.0 5.0 09/22/19 09/22/19 09/22/19 09/22/19 19:15 20:00 20:29 23:15 Temp 99.9 99.6 99.9 99.6 Pulse 112 112 Resp 20 20 B/P (MAP) 122/57 (78) 98/43 (61) Pulse Ox 92 97 95 O2 Delivery Nasal Cannula Nasal Cannula Nasal Cannula Nasal Cannula O2 Flow Rate 3.0 5.0 5.0 3.0 09/23/19 09/23/19 09/23/19 09/23/19 03:15 07:00 07:04 08:00 Temp 98.2 99.0 98.2 99.0 Pulse 91 99 Resp 19 20 B/P (MAP) 104/56 (72) 111/52 (71) Pulse Ox 90 93 97 O2 Delivery Nasal Cannula Nasal Cannula Nasal Cannula Nasal Cannula O2 Flow Rate 3.0 3.0 5.0 5.0 09/23/19 11:00 Pulse Ox 95 O2 Delivery Nasal Cannula O2 Flow Rate 5.0 Intake and Output0 09/22/19 09/22/19 09/23/19 15:00 23:00 07:00 Intake Total 1150 ml 0 ml 500 ml Output Total 600 ml 600 ml Balance 1150 ml -600 ml -100 ml Nutrition Consultation Dietary Evaluation: Recommendations by RD: Dietary education by RD, Increase Calorie Intake, Protein supplementation Comments: boost supplements from home Expected Outcomes/Goals: to meet >75% est nutr needs via meals and supplements. Malnutrition Findings: Food and Nutrition Intake (Mod: <75% est energy req 7days Weight Status: Appropriate CARLOS EDUARDO SANTIAGO MD Sep 23, 2019 11:08
--- NOTE | 2019-09-23 11:38 | PDOC ---
PULMONARY PROGRESS NOTES Subjective less soa and less cough Vitals Vital Signs Date Time Temp Pulse Resp B/P (MAP) Pulse Ox O2 Delivery O2 Flow Rate FiO2 09/23/19 11:00 95 Nasal Cannula 5.0 09/23/19 07:00 99.0 99 20 111/52 (71) 99.0 ROS: No Increase Cough General: Alert, Oriented X4, No acute distress Lungs: Other (improved wheezing) Cardiovascular: S1, S2 Abdomen: Soft, Non-tender Neuro Exam: Alert Extremities: No Edema Skin: Warm Labs Laboratory Tests Test 09/22/19 06:10 09/22/19 06:18 09/22/19 06:23 09/22/19 09:23 White Blood Count 8.3 x10^3/uL (4.0-11.0) Red Blood Count 4.42 x10^6/uL (3.50-5.40) Hemoglobin 13.8 g/dL (12.0-15.5) Hematocrit 41.6 % (36.0-47.0) Mean Corpuscular Volume 94 fL (79-100) Mean Corpuscular Hemoglobin 31 pg (25-35) Mean Corpuscular Hemoglobin Concent 33 g/dL (31-37) Red Cell Distribution Width 14.7 % (11.5-14.5) Platelet Count 210 x10^3/uL (140-400) Neutrophils (%) (Auto) 96 % (31-73) Lymphocytes (%) (Auto) 2 % (24-48) Monocytes (%) (Auto) 2 % (0-9) Eosinophils (%) (Auto) 0 % (0-3) Basophils (%) (Auto) 0 % (0-3) Neutrophils # (Auto) 8.0 x10^3/uL (1.8-7.7) Lymphocytes # (Auto) 0.2 x10^3/uL (1.0-4.8) Monocytes # (Auto) 0.2 x10^3/uL (0.0-1.1) Eosinophils # (Auto) 0.0 x10^3/uL (0.0-0.7) Basophils # (Auto) 0.0 x10^3/uL (0.0-0.2) Segmented Neutrophils % 60 % (35-66) Band Neutrophils % 28 % (0-9) Lymphocytes % 5 % (24-48) Monocytes % 4 % (0-10) Metamyelocytes % 3 % (0-0) Toxic Vacuolation Present Dohle Bodies Present Platelet Estimate Adequate (ADEQUATE) Giant Platelets Occ Sodium Level 142 mmol/L (136-145) Potassium Level 3.4 mmol/L (3.5-5.1) Chloride Level 103 mmol/L (98-107) Carbon Dioxide Level 25 mmol/L (21-32) Anion Gap 14 (6-14) Blood Urea Nitrogen 52 mg/dL (7-20) Creatinine 1.5 mg/dL (0.6-1.0) Estimated GFR (Cockcroft-Gault) 40.4 BUN/Creatinine Ratio 35 (6-20) Glucose Level 106 mg/dL (70-99) Calcium Level 9.0 mg/dL (8.5-10.1) Total Bilirubin 0.9 mg/dL (0.2-1.0) Aspartate Amino Transf (AST/SGOT) 27 U/L (15-37) Alanine Aminotransferase (ALT/SGPT) 14 U/L (14-59) Alkaline Phosphatase 52 U/L (46-116) Troponin I Quantitative < 0.017 ng/mL (0.000-0.055) TI-Ogs-G-Type Natriuretic Peptide 1021 pg/mL (0-449) Total Protein 6.2 g/dL (6.4-8.2) Albumin 2.7 g/dL (3.4-5.0) Albumin/Globulin Ratio 0.8 (1.0-1.7) Procalcitonin 39.05 ng/mL (0.00-0.10) Mycoplasma Serology (LAB) Positive (NEGATIVE) Lactic Acid Level 3.5 mmol/L (0.4-2.0) 2.4 mmol/L (0.4-2.0) Influenza Type A Antigen Negative (NEGATIVE) Influenza Type B Antigen Negative (NEGATIVE) Test 09/23/19 04:10 White Blood Count 9.4 x10^3/uL (4.0-11.0) Red Blood Count 3.93 x10^6/uL (3.50-5.40) Hemoglobin 12.2 g/dL (12.0-15.5) Hematocrit 37.6 % (36.0-47.0) Mean Corpuscular Volume 96 fL (79-100) Mean Corpuscular Hemoglobin 31 pg (25-35) Mean Corpuscular Hemoglobin Concent 33 g/dL (31-37) Red Cell Distribution Width 15.2 % (11.5-14.5) Platelet Count 178 x10^3/uL (140-400) Neutrophils (%) (Auto) 96 % (31-73) Lymphocytes (%) (Auto) 3 % (24-48) Monocytes (%) (Auto) 1 % (0-9) Eosinophils (%) (Auto) 0 % (0-3) Basophils (%) (Auto) 0 % (0-3) Neutrophils # (Auto) 9.0 x10^3/uL (1.8-7.7) Lymphocytes # (Auto) 0.3 x10^3/uL (1.0-4.8) Monocytes # (Auto) 0.1 x10^3/uL (0.0-1.1) Eosinophils # (Auto) 0.0 x10^3/uL (0.0-0.7) Basophils # (Auto) 0.0 x10^3/uL (0.0-0.2) Segmented Neutrophils % 70 % (35-66) Band Neutrophils % 22 % (0-9) Lymphocytes % 5 % (24-48) Monocytes % 3 % (0-10) Toxic Granulation Present Toxic Vacuolation Present Dohle Bodies Present Platelet Estimate Adequate (ADEQUATE) Giant Platelets Present Anisocytosis Slight Acanthocytes Occ Sodium Level 143 mmol/L (136-145) Potassium Level 3.2 mmol/L (3.5-5.1) Chloride Level 109 mmol/L (98-107) Carbon Dioxide Level 20 mmol/L (21-32) Anion Gap 14 (6-14) Blood Urea Nitrogen 30 mg/dL (7-20) Creatinine 1.0 mg/dL (0.6-1.0) Estimated GFR (Cockcroft-Gault) 64.6 Glucose Level 81 mg/dL (70-99) Calcium Level 9.4 mg/dL (8.5-10.1) Laboratory Tests Test 09/23/19 04:10 White Blood Count 9.4 x10^3/uL (4.0-11.0) Red Blood Count 3.93 x10^6/uL (3.50-5.40) Hemoglobin 12.2 g/dL (12.0-15.5) Hematocrit 37.6 % (36.0-47.0) Mean Corpuscular Volume 96 fL (79-100) Mean Corpuscular Hemoglobin 31 pg (25-35) Mean Corpuscular Hemoglobin Concent 33 g/dL (31-37) Red Cell Distribution Width 15.2 % (11.5-14.5) Platelet Count 178 x10^3/uL (140-400) Neutrophils (%) (Auto) 96 % (31-73) Lymphocytes (%) (Auto) 3 % (24-48) Monocytes (%) (Auto) 1 % (0-9) Eosinophils (%) (Auto) 0 % (0-3) Basophils (%) (Auto) 0 % (0-3) Neutrophils # (Auto) 9.0 x10^3/uL (1.8-7.7) Lymphocytes # (Auto) 0.3 x10^3/uL (1.0-4.8) Monocytes # (Auto) 0.1 x10^3/uL (0.0-1.1) Eosinophils # (Auto) 0.0 x10^3/uL (0.0-0.7) Basophils # (Auto) 0.0 x10^3/uL (0.0-0.2) Segmented Neutrophils % 70 % (35-66) Band Neutrophils % 22 % (0-9) Lymphocytes % 5 % (24-48) Monocytes % 3 % (0-10) Toxic Granulation Present Toxic Vacuolation Present Dohle Bodies Present Platelet Estimate Adequate (ADEQUATE) Giant Platelets Present Anisocytosis Slight Acanthocytes Occ Sodium Level 143 mmol/L (136-145) Potassium Level 3.2 mmol/L (3.5-5.1) Chloride Level 109 mmol/L (98-107) Carbon Dioxide Level 20 mmol/L (21-32) Anion Gap 14 (6-14) Blood Urea Nitrogen 30 mg/dL (7-20) Creatinine 1.0 mg/dL (0.6-1.0) Estimated GFR (Cockcroft-Gault) 64.6 Glucose Level 81 mg/dL (70-99) Calcium Level 9.4 mg/dL (8.5-10.1) Medications Active Scripts Medications Dose Route/Sig Max Daily Dose Days Date Category Oxycodone-Acetaminophen 5-325 (Oxycodone Hcl/Acetaminophen) 1 Each Tablet 1 Tab PO PRN Q4HRS PRN 06/30/16 Rx Latanoprost 2.5 Ml Drops 1 Drop OU QHS 06/30/16 Rx Duoneb 0.5-3(2.5) Mg/3 Ml (Albuterol/Ipratropium) 3 Ml Ampul.neb 3 Ml NEB RTQID 06/30/16 Rx Tamoxifen Citrate 20 Mg Tablet 10 Mg PO BID 04/16/16 Reported Latanoprost 2.5 Ml Drops 1 Ml OP QHS 09/23/13 Reported Triamterene-Hctz 37.5-25 Mg Cp (Triamterene/Hydrochlorothiazid) 1 Each Capsule 1 Each PO DAILY 09/23/13 Reported Aspirin Ec (Aspirin) 81 Mg Tablet.dr 81 Mg PO DAILY 09/23/13 Reported Vitamin D-3 (Cholecalciferol (Vitamin D3)) 2,000 Unit Capsule 2,000 Unit PO DAILY 09/23/[address] chest reviewed not reported yet extensive basal pneumonia L>R small portion of lung herniation RUL Impression . 1. Acute hypoxic respiratory failure secondary to underlying chronic obstructive pulmonary disease and extensive pneumonia involving the left lower lobe.and RLL 2. Underlying suspected severe chronic obstructive pulmonary disease. 3. History of lung cancer, adenocarcinoma, status post right upper lobectomy at least 10 years ago. 4. History of deep venous thrombosis around the time when the cancer was diagnosed and treated. No history of pulmonary embolism. 5. Acute kidney injury secondary to dehydration. 6. Hypokalemia. 7. Moderate protein-calorie malnutrition. 8. Influenza screen negative. 9. Sepsis with early shock. improved with IVF Plan . 1. Continue present oxygen to keep saturation 96% and above. 2. Monitor blood pressure closely. She has already received 4 liters of IV fluids. 3. clinically better 4. BS abx per ID 5. CT chest reviewed. extensive basal pneumonia. RUL small lung herniation likely related to lobectomy 6. Continue DuoNeb. 7. Smoking cessation counseling provided. 8. Follow electrolytes. 9. Discussed with RN and we will follow along with you. SIM MOYA MD Sep 23, 2019 11:38
[2019-09-23] MEDS: AZITHROMYCIN 250 MG TABLET. PO SCH (12:01)
--- NOTE | 2019-09-23 13:34 | NUR ---
SS following for discharge planning. SS reviewed pt chart. Pt is from home with spouse and is currently requiring oxygen. SS will continue to follow for discharge planning.
--- NOTE | 2019-09-23 13:43 | RAD ---
Examination: CT CHEST WO CONTRAST History: Pneumonia, right upper lobectomy , lung cancer, breast cancer Comparison/Correlation: 03/22/2018, 10/01/2018, 04/06/2019 CT chest without contrast exam Findings: Axial images of chest were obtained without contrast. Sagittal and coronal reformatted images provided. Reversible bilateral pleural effusions are present. Significant left lower lobe consolidation is present. Right costophrenic sulcus consolidation also is present. Right upper lobectomy noted. Anterolateral right lower lung field herniation into the chest wall is again seen. There is of a mildly greater extent than on the prior exam. No suspicious new mass. Coronary arterial calcifications present. Calcified subcarinal lymph node is present. Heart size unremarkable. Marked calcification involving the thoracic aorta is present. Partially visualized upper abdomen is unremarkable. Surgical clips are present involving the right lateral breast region. Bony structures are grossly unremarkable. Impression: Significant bibasilar lower lobe consolidation much greater on the left. Very small pleural effusions. Emphysema. Mild herniation of right lung between the fifth and sixth ribs anterolaterally again seen although greater in extent. No pneumothorax. PQRS Compliance Statement: One or more of the following individualized dose reduction techniques were utilized for this examination: 1. Automated exposure control 2. Adjustment of the mA and/or kV according to patient size 3. Use of iterative reconstruction technique Electronically signed by: Robbie Rice MD (09/23/2019 1:40 PM) [facility]
[2019-09-23 15:00] VITALS: BP 106/47
--- NOTE | 2019-09-23 15:21 | NUR ---
Pt is 79 y/o female admitted with pneumonia. Would benefit from PT/OT assessment to ensure safe discharge plan. Please wrtie PT/OT eval and treat orders if you agree. Addendum: 09/23/19 at 1522 by CARA DIXON PT Amended: Links added.
[2019-09-23] MEDS: DAPTOmycin (GENERIC) IVPB 430 MG in IV NORMAL SALINE 50ML 50 ML IV SCH (16:18)
[2019-09-23 19:15] VITALS: BP 97/43
[2019-09-23 23:40] VITALS: BP 109/51
[2019-09-24] MEDS: MEROPENEM 500 MG in IV NORMAL SALINE 50ML 50 ML IV SCH ×5 (00:25→23:51)
[2019-09-24 03:46] VITALS: BP 98/53
[2019-09-24 07:00] VITALS: BP 100/51
[2019-09-24 07:27] LABS: BASO % 0 % (0-3); EOS % 0 % (0-3); HEMATOCRIT 33.9 % (36.0-47.0); HEMOGLOBIN 11.1 g/dL (12.0-15.5); LYMPH # 0.6 x10^3/uL (1.0-4.8); LYMPH % 5 % (24-48); MEAN CORPUSCULAR HEMOGLOBIN 31 pg (25-35); MEAN CORPUSCULAR HGB CONC 33 g/dL (31-37); MEAN CORPUSCULAR VOLUME 94 fL (79-100); MONO # 0.5 x10^3/uL (0.0-1.1); MONO % 4 % (0-9); NEUT # 12.6 x10^3/uL (1.8-7.7); NEUT % 91 % (31-73); PLATELET COUNT 175 x10^3/uL (140-400); RED CELL DISTRIBUTION WIDTH 15.1 % (11.5-14.5); WHITE BLOOD COUNT 13.8 x10^3/uL (4.0-11.0)
[2019-09-24 07:34] LABS: CALCIUM 9.7 mg/dL (8.5-10.1); CREATININE 0.8 mg/dL (0.6-1.0); GFR 83.5
[2019-09-24] MEDS: IPRATRPIUM/ALBUTEROL 0.5/2.5MG 3 ML NEBU. NEB SCH ×4 (07:48→19:55)
[2019-09-24] MEDS: AZITHROMYCIN 250 MG TABLET. PO SCH (08:01)
[2019-09-24] MEDS: LINEZOLID 600 MG TABLET PO SCH ×2 (08:01→20:27)
[2019-09-24] MEDS: HEPARIN for SUB-Q USE 5,000 UNIT/ML VIAL. SQ SCH ×2 (08:15→20:32)
--- NOTE | 2019-09-24 08:58 | PDOC ---
PULMONARY PROGRESS NOTES Subjective less soa and has nasal post nasal drip and cough Vitals Vital Signs Date Time Temp Pulse Resp B/P (MAP) Pulse Ox O2 Delivery O2 Flow Rate FiO2 09/24/19 07:50 90 Nasal Cannula 5.0 09/24/19 07:00 98.2 100 20 100/51 (67) 98.2 ROS: No Increase Cough General: Alert, Oriented X4, No acute distress Lungs: Crackles Cardiovascular: S1, S2 Abdomen: Soft, Non-tender Neuro Exam: Alert Extremities: No Edema Skin: Warm Labs Laboratory Tests Test 09/22/19 09:23 09/23/19 04:10 09/24/19 06:45 09/24/19 06:50 Lactic Acid Level 2.4 mmol/L (0.4-2.0) White Blood Count 9.4 x10^3/uL (4.0-11.0) 13.8 x10^3/uL (4.0-11.0) Red Blood Count 3.93 x10^6/uL (3.50-5.40) 3.60 x10^6/uL (3.50-5.40) Hemoglobin 12.2 g/dL (12.0-15.5) 11.1 g/dL (12.0-15.5) Hematocrit 37.6 % (36.0-47.0) 33.9 % (36.0-47.0) Mean Corpuscular Volume 96 fL (79-100) 94 fL (79-100) Mean Corpuscular Hemoglobin 31 pg (25-35) 31 pg (25-35) Mean Corpuscular Hemoglobin Concent 33 g/dL (31-37) 33 g/dL (31-37) Red Cell Distribution Width 15.2 % (11.5-14.5) 15.1 % (11.5-14.5) Platelet Count 178 x10^3/uL (140-400) 175 x10^3/uL (140-400) Neutrophils (%) (Auto) 96 % (31-73) 91 % (31-73) Lymphocytes (%) (Auto) 3 % (24-48) 5 % (24-48) Monocytes (%) (Auto) 1 % (0-9) 4 % (0-9) Eosinophils (%) (Auto) 0 % (0-3) 0 % (0-3) Basophils (%) (Auto) 0 % (0-3) 0 % (0-3) Neutrophils # (Auto) 9.0 x10^3/uL (1.8-7.7) 12.6 x10^3/uL (1.8-7.7) Lymphocytes # (Auto) 0.3 x10^3/uL (1.0-4.8) 0.6 x10^3/uL (1.0-4.8) Monocytes # (Auto) 0.1 x10^3/uL (0.0-1.1) 0.5 x10^3/uL (0.0-1.1) Eosinophils # (Auto) 0.0 x10^3/uL (0.0-0.7) 0.0 x10^3/uL (0.0-0.7) Basophils # (Auto) 0.0 x10^3/uL (0.0-0.2) 0.0 x10^3/uL (0.0-0.2) Segmented Neutrophils % 70 % (35-66) Band Neutrophils % 22 % (0-9) Lymphocytes % 5 % (24-48) Monocytes % 3 % (0-10) Toxic Granulation Present Toxic Vacuolation Present Dohle Bodies Present Platelet Estimate Adequate (ADEQUATE) Giant Platelets Present Anisocytosis Slight Acanthocytes Occ Sodium Level 143 mmol/L (136-145) 144 mmol/L (136-145) Potassium Level 3.2 mmol/L (3.5-5.1) 3.0 mmol/L (3.5-5.1) Chloride Level 109 mmol/L (98-107) 109 mmol/L (98-107) Carbon Dioxide Level 20 mmol/L (21-32) 25 mmol/L (21-32) Anion Gap 14 (6-14) 10 (6-14) Blood Urea Nitrogen 30 mg/dL (7-20) 24 mg/dL (7-20) Creatinine 1.0 mg/dL (0.6-1.0) 0.8 mg/dL (0.6-1.0) Estimated GFR (Cockcroft-Gault) 64.6 83.5 Glucose Level 81 mg/dL (70-99) 90 mg/dL (70-99) Calcium Level 9.4 mg/dL (8.5-10.1) 9.7 mg/dL (8.5-10.1) Laboratory Tests Test 09/24/19 06:45 09/24/19 06:50 Sodium Level 144 mmol/L (136-145) Potassium Level 3.0 mmol/L (3.5-5.1) Chloride Level 109 mmol/L (98-107) Carbon Dioxide Level 25 mmol/L (21-32) Anion Gap 10 (6-14) Blood Urea Nitrogen 24 mg/dL (7-20) Creatinine 0.8 mg/dL (0.6-1.0) Estimated GFR (Cockcroft-Gault) 83.5 Glucose Level 90 mg/dL (70-99) Calcium Level 9.7 mg/dL (8.5-10.1) White Blood Count 13.8 x10^3/uL (4.0-11.0) Red Blood Count 3.60 x10^6/uL (3.50-5.40) Hemoglobin 11.1 g/dL (12.0-15.5) Hematocrit 33.9 % (36.0-47.0) Mean Corpuscular Volume 94 fL (79-100) Mean Corpuscular Hemoglobin 31 pg (25-35) Mean Corpuscular Hemoglobin Concent 33 g/dL (31-37) Red Cell Distribution Width 15.1 % (11.5-14.5) Platelet Count 175 x10^3/uL (140-400) Neutrophils (%) (Auto) 91 % (31-73) Lymphocytes (%) (Auto) 5 % (24-48) Monocytes (%) (Auto) 4 % (0-9) Eosinophils (%) (Auto) 0 % (0-3) Basophils (%) (Auto) 0 % (0-3) Neutrophils # (Auto) 12.6 x10^3/uL (1.8-7.7) Lymphocytes # (Auto) 0.6 x10^3/uL (1.0-4.8) Monocytes # (Auto) 0.5 x10^3/uL (0.0-1.1) Eosinophils # (Auto) 0.0 x10^3/uL (0.0-0.7) Basophils # (Auto) 0.0 x10^3/uL (0.0-0.2) Medications Active Scripts Medications Dose Route/Sig Max Daily Dose Days Date Category Oxycodone-Acetaminophen 5-325 (Oxycodone Hcl/Acetaminophen) 1 Each Tablet 1 Tab PO PRN Q4HRS PRN 06/30/16 Rx Latanoprost 2.5 Ml Drops 1 Drop OU QHS 06/30/16 Rx Duoneb 0.5-3(2.5) Mg/3 Ml (Albuterol/Ipratropium) 3 Ml Ampul.neb 3 Ml NEB RTQID 06/30/16 Rx Tamoxifen Citrate 20 Mg Tablet 10 Mg PO BID 04/16/16 Reported Latanoprost 2.5 Ml Drops 1 Ml OP QHS 09/23/13 Reported Triamterene-Hctz 37.5-25 Mg Cp (Triamterene/Hydrochlorothiazid) 1 Each Capsule 1 Each PO DAILY 09/23/13 Reported Aspirin Ec (Aspirin) 81 Mg Tablet.dr 81 Mg PO DAILY 09/23/13 Reported Vitamin D-3 (Cholecalciferol (Vitamin D3)) 2,000 Unit Capsule 2,000 Unit PO DAILY 09/23/[address] chest reviewed not reported yet extensive basal pneumonia L>R small portion of lung herniation RUL Impression . 1. Acute hypoxic respiratory failure secondary to underlying chronic obstructive pulmonary disease and extensive pneumonia involving the left lower lobe.and RLL 2. Underlying suspected severe chronic obstructive pulmonary disease. 3. History of lung cancer, adenocarcinoma, status post right upper lobectomy at least 10 years ago. 4. History of deep venous thrombosis around the time when the cancer was diagnosed and treated. No history of pulmonary embolism. 5. Acute kidney injury secondary to dehydration. 6. Hypokalemia. 7. Moderate protein-calorie malnutrition. 8. Influenza screen negative. 9. Sepsis with early shock. improved with IVF Plan . 1. Continue present oxygen to keep saturation 96% and above. 2. Monitor blood pressure closely. 3. clinically better 4. BS abx per ID, Continue Azithromycin, Cont Meropenem/Dapto//zyvox for now 5. CT chest reviewed. extensive basal pneumonia. RUL small lung herniation likely related to lobectomy 6. Continue DuoNeb. 7. Smoking cessation counseling provided. 8. Follow electrolytes. 9. add flonase Discussed with RN and we will follow along with you. ELLIE BAILON MD Sep 24, 2019 08:58
--- NOTE | 2019-09-24 09:52 | PDOC ---
PROGRESS NOTES History of Present Illness History of Present Illness Images Images CXR - 1. Left lower lobe consolidation likely pneumonia or atelectasis. Follow- up to resolution. 2. Prominent bilateral digital lung markings likely mild congestive changes. hx Pneumonia, right upper lobectomy , lung cancer, breast cancer VTE Prophylaxis Ordered VTE Prophylaxis Devices: Yes VTE Pharmacological Prophylaxi: Yes Assessment/Plan Assessment/Plan A/P: Acute hypoxia LLL infiltrate - almost certainly pneumonia. Likely gram negative given her h/o lung cancer and structural lung disease. Levaquin appropriate. Pulm consulted. extensive basal pneumonia. RUL small lung herniation likely related to lobectomy NAM - likely vasomotor nephropathy, started on IVF by ED Sepsis - with tachycardia, fever, empiric antibiotics and fluids given appropriately Lactic acidosis - likely related to hypoxemia, sepsis, trend. HYPOKALEMIA FEN - General diet PPX - Lovenox FULL CODE Dispo - inpatient pulm consult REPLACE K 37 min pt exam, chart review, > 50% of time spent with exam, chart review, pt care coordination Vitals Vitals Vital Signs Date Time Temp Pulse Resp B/P (MAP) Pulse Ox O2 Delivery O2 Flow Rate FiO2 09/24/19 08:00 Nasal Cannula 5.0 09/24/19 07:50 90 09/24/19 07:00 98.2 100 20 100/51 (67) 98.2 Physical Exam Physical Exam CONSTITUTIONAL: She is lying in bed. She is cooperative. She is in mild acute distress. looks a little better HEENT: Pupils are equal and reactive. She has normal conjunctivae. Oral cavity, pharynx is without signs of thrush that was clear. NECK: Supple. LUNGS: Still coarse sounds bilaterally HEART: S1, S2. ABDOMEN: Flat, soft, nontender, no guarding, no rebound. EXTREMITIES: Without clubbing, cyanosis or gross edema. SKIN: Warm to touch without signs of rash. NEUROLOGIC: She is nonfocal and appropriate. General: Alert, Oriented X3, Cooperative, mild distress Lungs: Other (improved wheezing) Abdomen: Normal bowel sounds, Soft, No tenderness, No hepatosplenomegaly, No masses Extremities: No clubbing, No cyanosis, No edema, Normal pulses, No tenderness/swelling Skin: No rashes, No breakdown, No significant lesion Labs LABS Laboratory Tests Test 09/24/19 06:45 09/24/19 06:50 Sodium Level 144 mmol/L (136-145) Potassium Level 3.0 mmol/L (3.5-5.1) Chloride Level 109 mmol/L (98-107) Carbon Dioxide Level 25 mmol/L (21-32) Anion Gap 10 (6-14) Blood Urea Nitrogen 24 mg/dL (7-20) Creatinine 0.8 mg/dL (0.6-1.0) Estimated GFR (Cockcroft-Gault) 83.5 Glucose Level 90 mg/dL (70-99) Calcium Level 9.7 mg/dL (8.5-10.1) White Blood Count 13.8 x10^3/uL (4.0-11.0) Red Blood Count 3.60 x10^6/uL (3.50-5.40) Hemoglobin 11.1 g/dL (12.0-15.5) Hematocrit 33.9 % (36.0-47.0) Mean Corpuscular Volume 94 fL (79-100) Mean Corpuscular Hemoglobin 31 pg (25-35) Mean Corpuscular Hemoglobin Concent 33 g/dL (31-37) Red Cell Distribution Width 15.1 % (11.5-14.5) Platelet Count 175 x10^3/uL (140-400) Neutrophils (%) (Auto) 91 % (31-73) Lymphocytes (%) (Auto) 5 % (24-48) Monocytes (%) (Auto) 4 % (0-9) Eosinophils (%) (Auto) 0 % (0-3) Basophils (%) (Auto) 0 % (0-3) Neutrophils # (Auto) 12.6 x10^3/uL (1.8-7.7) Lymphocytes # (Auto) 0.6 x10^3/uL (1.0-4.8) Monocytes # (Auto) 0.5 x10^3/uL (0.0-1.1) Eosinophils # (Auto) 0.0 x10^3/uL (0.0-0.7) Basophils # (Auto) 0.0 x10^3/uL (0.0-0.2) Assessment and Plan Assessmemt and Plan Problems Medical Problems: (1) Acute kidney injury Status: Acute (2) Community acquired pneumonia Status: Acute (3) Dehydration Status: Acute (4) Hypoxemia Status: Acute (5) Shortness of breath Status: Acute Comment Review of Relevant I have reviewed the following items byron (where applicable) has been applied. Labs Laboratory Tests Test 09/23/19 04:10 09/24/19 06:45 09/24/19 06:50 White Blood Count 9.4 x10^3/uL (4.0-11.0) 13.8 x10^3/uL (4.0-11.0) Red Blood Count 3.93 x10^6/uL (3.50-5.40) 3.60 x10^6/uL (3.50-5.40) Hemoglobin 12.2 g/dL (12.0-15.5) 11.1 g/dL (12.0-15.5) Hematocrit 37.6 % (36.0-47.0) 33.9 % (36.0-47.0) Mean Corpuscular Volume 96 fL (79-100) 94 fL (79-100) Mean Corpuscular Hemoglobin 31 pg (25-35) 31 pg (25-35) Mean Corpuscular Hemoglobin Concent 33 g/dL (31-37) 33 g/dL (31-37) Red Cell Distribution Width 15.2 % (11.5-14.5) 15.1 % (11.5-14.5) Platelet Count 178 x10^3/uL (140-400) 175 x10^3/uL (140-400) Neutrophils (%) (Auto) 96 % (31-73) 91 % (31-73) Lymphocytes (%) (Auto) 3 % (24-48) 5 % (24-48) Monocytes (%) (Auto) 1 % (0-9) 4 % (0-9) Eosinophils (%) (Auto) 0 % (0-3) 0 % (0-3) Basophils (%) (Auto) 0 % (0-3) 0 % (0-3) Neutrophils # (Auto) 9.0 x10^3/uL (1.8-7.7) 12.6 x10^3/uL (1.8-7.7) Lymphocytes # (Auto) 0.3 x10^3/uL (1.0-4.8) 0.6 x10^3/uL (1.0-4.8) Monocytes # (Auto) 0.1 x10^3/uL (0.0-1.1) 0.5 x10^3/uL (0.0-1.1) Eosinophils # (Auto) 0.0 x10^3/uL (0.0-0.7) 0.0 x10^3/uL (0.0-0.7) Basophils # (Auto) 0.0 x10^3/uL (0.0-0.2) 0.0 x10^3/uL (0.0-0.2) Segmented Neutrophils % 70 % (35-66) Band Neutrophils % 22 % (0-9) Lymphocytes % 5 % (24-48) Monocytes % 3 % (0-10) Toxic Granulation Present Toxic Vacuolation Present Dohle Bodies Present Platelet Estimate Adequate (ADEQUATE) Giant Platelets Present Anisocytosis Slight Acanthocytes Occ Sodium Level 143 mmol/L (136-145) 144 mmol/L (136-145) Potassium Level 3.2 mmol/L (3.5-5.1) 3.0 mmol/L (3.5-5.1) Chloride Level 109 mmol/L (98-107) 109 mmol/L (98-107) Carbon Dioxide Level 20 mmol/L (21-32) 25 mmol/L (21-32) Anion Gap 14 (6-14) 10 (6-14) Blood Urea Nitrogen 30 mg/dL (7-20) 24 mg/dL (7-20) Creatinine 1.0 mg/dL (0.6-1.0) 0.8 mg/dL (0.6-1.0) Estimated GFR (Cockcroft-Gault) 64.6 83.5 Glucose Level 81 mg/dL (70-99) 90 mg/dL (70-99) Calcium Level 9.4 mg/dL (8.5-10.1) 9.7 mg/dL (8.5-10.1) Laboratory Tests Test 09/24/19 06:45 09/24/19 06:50 Sodium Level 144 mmol/L (136-145) Potassium Level 3.0 mmol/L (3.5-5.1) Chloride Level 109 mmol/L (98-107) Carbon Dioxide Level 25 mmol/L (21-32) Anion Gap 10 (6-14) Blood Urea Nitrogen 24 mg/dL (7-20) Creatinine 0.8 mg/dL (0.6-1.0) Estimated GFR (Cockcroft-Gault) 83.5 Glucose Level 90 mg/dL (70-99) Calcium Level 9.7 mg/dL (8.5-10.1) White Blood Count 13.8 x10^3/uL (4.0-11.0) Red Blood Count 3.60 x10^6/uL (3.50-5.40) Hemoglobin 11.1 g/dL (12.0-15.5) Hematocrit 33.9 % (36.0-47.0) Mean Corpuscular Volume 94 fL (79-100) Mean Corpuscular Hemoglobin 31 pg (25-35) Mean Corpuscular Hemoglobin Concent 33 g/dL (31-37) Red Cell Distribution Width 15.1 % (11.5-14.5) Platelet Count 175 x10^3/uL (140-400) Neutrophils (%) (Auto) 91 % (31-73) Lymphocytes (%) (Auto) 5 % (24-48) Monocytes (%) (Auto) 4 % (0-9) Eosinophils (%) (Auto) 0 % (0-3) Basophils (%) (Auto) 0 % (0-3) Neutrophils # (Auto) 12.6 x10^3/uL (1.8-7.7) Lymphocytes # (Auto) 0.6 x10^3/uL (1.0-4.8) Monocytes # (Auto) 0.5 x10^3/uL (0.0-1.1) Eosinophils # (Auto) 0.0 x10^3/uL (0.0-0.7) Basophils # (Auto) 0.0 x10^3/uL (0.0-0.2) Microbiology 09/22/19 Blood Culture - Preliminary, Resulted NO GROWTH AFTER 2 DAYS Medications Current Medications Albuterol/ Ipratropium (Duoneb) 3 ml 1X ONCE NEB Last administered on 09/22/19at 05:49; Start 09/22/19 at 05:45; Stop 09/22/19 at 05:50; Status DC Levofloxacin/ Dextrose 150 ml @ 100 mls/hr 1X ONCE IV Last administered on 09/22/19at 07:21; Start 09/22/19 at 07:00; Stop 09/22/19 at 08:29; Status DC Sodium Chloride 1,000 ml @ 250 mls/hr 1X ONCE IV Last administered on 09/22/19at 07:22; Start 09/22/19 at 07:00; Stop 09/22/19 at 10:59; Status DC Acetaminophen (Tylenol) 1,000 mg 1X ONCE PO Last administered on 09/22/19at 07:21; Start 09/22/19 at 07:00; Stop 09/22/19 at 07:01; Status DC Sodium Chloride 1,000 ml @ 125 mls/hr Q8H IV Last administered on 09/23/19at 00:16; Start 09/22/19 at 08:03; Stop 09/23/19 at 08:02; Status DC Acetaminophen (Tylenol) 650 mg PRN Q4HRS PRN PO FEVER Last administered on 09/22/19at 22:46; Start 09/22/19 at 08:15; Stop 09/23/19 at 08:14; Status DC Albuterol/ Ipratropium (Duoneb) 3 ml RTQID NEB Last administered on 09/23/19at 07:03; Start 09/22/19 at 12:00; Stop 09/23/19 at 11:59; Status DC Sodium Chloride 1,000 ml @ 1,000 mls/hr 1X ONCE IV Last administered on 09/22/19at 08:55; Start 09/22/19 at 09:00; Stop 09/22/19 at 09:59; Status DC Albumin Human 500 ml @ 125 mls/hr 1X ONCE IV Last administered on 09/22/19at 09:33; Start 09/22/19 at 09:30; Stop 09/22/19 at 13:29; Status DC Sodium Chloride 250 ml @ 250 mls/hr 1X ONCE IV Last administered on 09/22/19at 10:56; Start 09/22/19 at 10:45; Stop 09/22/19 at 11:44; Status DC Influenza Virus Vaccine Quadrival (Afluria Quad 2019-20 (3yr Up) Syringe) 0.5 ml ONCE ONCE VAX IM ; Start 09/23/19 at 09:00; Stop 09/23/19 at 09:01; Status DC Levofloxacin/ Dextrose (Levaquin Per Pharmacy) 1 each PRN DAILY PRN MC SEE COMMENTS; Start 09/22/19 at 12:15; Stop 09/22/19 at 15:06; Status DC Levofloxacin/ Dextrose 150 ml @ 100 mls/hr Q48H IV ; Start 09/24/19 at 06:00; Stop 09/22/19 at 15:06; Status DC Meropenem 500 mg/ Sodium Chloride 50 ml @ 100 mls/hr Q6HRS IV Last administered on 09/24/19at 07:39; Start 09/22/19 at 18:00 Daptomycin 430 mg/ Sodium Chloride 50 ml @ 100 mls/hr Q48H IV Last administered on 09/22/19at 16:13; Start 09/22/19 at 15:00; Stop 09/23/19 at 08:50; Status DC Linezolid (Zyvox) 600 mg BID PO Last administered on 09/24/19at 08:01; Start 09/22/19 at 21:00 Doxycycline Hyclate (Vibra-Tab) 100 mg BID PO ; Start 09/23/19 at 09:00; Stop 09/23/19 at 08:50; Status DC Heparin Sodium (Porcine) (Heparin Sodium) 5,000 unit BID SQ Last administered on 09/24/19at 08:15; Start 09/22/19 at 16:00 Daptomycin 430 mg/ Sodium Chloride 50 ml @ 100 mls/hr Q24H IV Last administered on 09/23/19at 16:18; Start 09/23/19 at 15:00 Azithromycin (Zithromax) 500 mg DAILY PO Last administered on 09/24/19at 08:01; Start 09/23/19 at 09:00 Albuterol/ Ipratropium (Duoneb) 3 ml RTQID NEB Last administered on 09/24/19at 07:48; Start 09/23/19 at 17:00 Fluticasone Propionate (Flonase) 2 spray DAILY NS ; Start 09/24/19 at 10:00 Active Scripts Active Oxycodone-Acetaminophen 5-325 (Oxycodone Hcl/Acetaminophen) 1 Each Tablet 1 Tab PO PRN Q4HRS PRN Latanoprost 2.5 Ml Drops 1 Drop OU QHS Duoneb 0.5-3(2.5) Mg/3 Ml (Albuterol/Ipratropium) 3 Ml Ampul.neb 3 Ml NEB RTQID Reported Tamoxifen Citrate 20 Mg Tablet 10 Mg PO BID Latanoprost 2.5 Ml Drops 1 Ml OP QHS Triamterene-Hctz 37.5-25 Mg Cp (Triamterene/Hydrochlorothiazid) 1 Each Capsule 1 Each PO DAILY Aspirin Ec (Aspirin) 81 Mg Tablet.dr 81 Mg PO DAILY Vitamin D-3 (Cholecalciferol (Vitamin D3)) 2,000 Unit Capsule 2,000 Unit PO DAILY Vitals/I & O Vital Sign - Last 24 Hours 09/23/19 09/23/19 09/23/19 09/23/19 11:00 11:00 15:00 16:59 Temp 97.9 98.7 97.9 98.7 Pulse 97 104 Resp 20 20 B/P (MAP) 117/56 (76) 106/47 (66) Pulse Ox 95 95 93 95 O2 Delivery Nasal Cannula Nasal Cannula Nasal Cannula Nasal Cannula O2 Flow Rate 3.0 5.0 3.0 5.0 09/23/19 09/23/19 09/23/19 09/23/19 19:15 19:37 20:00 23:40 Temp 97.5 98.8 97.5 98.8 Pulse 111 102 Resp 18 18 B/P (MAP) 97/43 (61) 109/51 (70) Pulse Ox 92 95 93 O2 Delivery Nasal Cannula Nasal Cannula Nasal Cannula Nasal Cannula O2 Flow Rate 5.0 5.0 4.0 5.0 09/24/19 09/24/19 09/24/19 09/24/19 03:46 07:00 07:50 08:00 Temp 98.8 98.2 98.8 98.2 Pulse 92 100 Resp 18 20 B/P (MAP) 98/53 (68) 100/51 (67) Pulse Ox 93 91 90 O2 Delivery Nasal Cannula Nasal Cannula Nasal Cannula Nasal Cannula O2 Flow Rate 5.0 5.0 5.0 5.0 Intake and Output 09/23/19 09/23/19 09/24/19 15:00 23:00 07:00 Intake Total 50 ml 400 ml Balance 50 ml 400 ml Nutrition Consultation Dietary Evaluation: Recommendations by RD: Dietary education by RD, Increase Calorie Intake, Protein supplementation Comments: boost supplements from home Expected Outcomes/Goals: to meet >75% est nutr needs via meals and supplements. Malnutrition Findings: Food and Nutrition Intake (Mod: <75% est energy req 7days Weight Status: Appropriate CARLOS EDUARDO SANTIAGO MD Sep 24, 2019 09:52
[2019-09-24 11:00] VITALS: BP 107/51
[2019-09-24] MEDS ORDERED: POTASSIUM CHLORIDE 20 MEQ TABLET.ER. PO ONE (11:00)
[2019-09-24] MEDS: FLUTICASONE 50MCG/NASAL SPRAY 16GM BOTTLE. NS SCH (11:23)
--- NOTE | 2019-09-24 13:54 | PDOC ---
Infectious Disease Note Subjective Subjective Feeling some better Not very hungry though c/o rib pain from coughing 5L O2 Denies SOA/F/C/N/V/D ROS ROS per HPI Vital Sign Vital Signs Vital Signs Date Time Temp Pulse Resp B/P (MAP) Pulse Ox O2 Delivery O2 Flow Rate FiO2 09/24/19 11:31 93 Nasal Cannula 5.0 09/24/19 11:00 97.5 20 20 107/51 (69) 97.5 Physical Exam PHYSICAL EXAM GENERAL: Propped up in bed, alert, appears comfortable, tired HEENT: Pupils are equal and reactive. She has normal conjunctivae. Oral cavity, pharynx is without signs of thrush that was clear. NECK: Supple. LUNGS: Still coarse sounds bilaterally HEART: S1, S2. ABDOMEN: Flat, soft, nontender, no guarding, no rebound. EXTREMITIES: Without clubbing, cyanosis or gross edema. SKIN: Warm to touch without signs of rash. NEUROLOGIC: Alert, appropriate. Labs Lab Laboratory Tests Test 09/24/19 06:45 09/24/19 06:50 Sodium Level 144 mmol/L (136-145) Potassium Level 3.0 mmol/L (3.5-5.1) Chloride Level 109 mmol/L (98-107) Carbon Dioxide Level 25 mmol/L (21-32) Anion Gap 10 (6-14) Blood Urea Nitrogen 24 mg/dL (7-20) Creatinine 0.8 mg/dL (0.6-1.0) Estimated GFR (Cockcroft-Gault) 83.5 Glucose Level 90 mg/dL (70-99) Calcium Level 9.7 mg/dL (8.5-10.1) White Blood Count 13.8 x10^3/uL (4.0-11.0) Red Blood Count 3.60 x10^6/uL (3.50-5.40) Hemoglobin 11.1 g/dL (12.0-15.5) Hematocrit 33.9 % (36.0-47.0) Mean Corpuscular Volume 94 fL (79-100) Mean Corpuscular Hemoglobin 31 pg (25-35) Mean Corpuscular Hemoglobin Concent 33 g/dL (31-37) Red Cell Distribution Width 15.1 % (11.5-14.5) Platelet Count 175 x10^3/uL (140-400) Neutrophils (%) (Auto) 91 % (31-73) Lymphocytes (%) (Auto) 5 % (24-48) Monocytes (%) (Auto) 4 % (0-9) Eosinophils (%) (Auto) 0 % (0-3) Basophils (%) (Auto) 0 % (0-3) Neutrophils # (Auto) 12.6 x10^3/uL (1.8-7.7) Lymphocytes # (Auto) 0.6 x10^3/uL (1.0-4.8) Monocytes # (Auto) 0.5 x10^3/uL (0.0-1.1) Eosinophils # (Auto) 0.0 x10^3/uL (0.0-0.7) Basophils # (Auto) 0.0 x10^3/uL (0.0-0.2) Micro Microbiology 09/22/19 Blood Culture - Preliminary, Resulted NO GROWTH AFTER 2 DAYS Objective Assessment sepsis - POA 09/22 Mycoplasma + PCN allergy - rash -uncertain if ever had Amox/Augmentin/Cephalexin - etc. Bandemia LL pneumonia - better NAM H/o lung CA 2019 s/p lobectomy and chemo Tobacco abuse Plan Plan of Care Continue Azithromycin Cont Meropenem/Dapto//zyvox for now Needs Isolation contact and droplet strep antigen/legionella pending BC neg so far KAVEH FARIAS APRN Sep 24, 2019 13:54 YUKI HOWARD MD Sep 24, 2019 15:23
[2019-09-24 15:00] VITALS: BP 98/48
[2019-09-24] MEDS: DAPTOmycin (GENERIC) IVPB 430 MG in IV NORMAL SALINE 50ML 50 ML IV SCH (15:50)
[2019-09-24 19:58] VITALS: BP 121/55
[2019-09-24 22:35] VITALS: BP 117/59
[2019-09-25 02:47] VITALS: BP 102/45
[2019-09-25] MEDS: MEROPENEM 500 MG in IV NORMAL SALINE 50ML 50 ML IV SCH ×4 (05:35→23:22)
[2019-09-25 07:00] VITALS: BP 113/47
[2019-09-25] MEDS: IPRATRPIUM/ALBUTEROL 0.5/2.5MG 3 ML NEBU. NEB SCH ×4 (07:49→20:37)
[2019-09-25] MEDS: POTASSIUM CHLORIDE 20 MEQ TABLET.ER. PO SCH (08:06)
[2019-09-25] MEDS: LINEZOLID 600 MG TABLET PO SCH ×2 (08:06→20:52)
[2019-09-25] MEDS: AZITHROMYCIN 250 MG TABLET. PO SCH (08:11)
[2019-09-25] MEDS: FLUTICASONE 50MCG/NASAL SPRAY 16GM BOTTLE. NS SCH (08:11)
[2019-09-25] MEDS: HEPARIN for SUB-Q USE 5,000 UNIT/ML VIAL. SQ SCH ×2 (08:36→21:02)
--- NOTE | 2019-09-25 09:20 | PDOC ---
PULMONARY PROGRESS NOTES Subjective has sob, cough, nasal congestion Vitals Vital Signs Date Time Temp Pulse Resp B/P (MAP) Pulse Ox O2 Delivery O2 Flow Rate FiO2 09/25/19 07:50 96 Nasal Cannula 5.0 09/25/19 07:00 98.4 94 16 113/47 (69) 98.4 ROS: No Nausea General: Alert, Oriented X4, No acute distress Lungs: Wheezing Cardiovascular: S1, S2 Abdomen: Soft, Non-tender Neuro Exam: Alert Extremities: No Edema Skin: Warm Labs Laboratory Tests Test 09/24/19 06:45 09/24/19 06:50 Sodium Level 144 mmol/L (136-145) Potassium Level 3.0 mmol/L (3.5-5.1) Chloride Level 109 mmol/L (98-107) Carbon Dioxide Level 25 mmol/L (21-32) Anion Gap 10 (6-14) Blood Urea Nitrogen 24 mg/dL (7-20) Creatinine 0.8 mg/dL (0.6-1.0) Estimated GFR (Cockcroft-Gault) 83.5 Glucose Level 90 mg/dL (70-99) Calcium Level 9.7 mg/dL (8.5-10.1) White Blood Count 13.8 x10^3/uL (4.0-11.0) Red Blood Count 3.60 x10^6/uL (3.50-5.40) Hemoglobin 11.1 g/dL (12.0-15.5) Hematocrit 33.9 % (36.0-47.0) Mean Corpuscular Volume 94 fL (79-100) Mean Corpuscular Hemoglobin 31 pg (25-35) Mean Corpuscular Hemoglobin Concent 33 g/dL (31-37) Red Cell Distribution Width 15.1 % (11.5-14.5) Platelet Count 175 x10^3/uL (140-400) Neutrophils (%) (Auto) 91 % (31-73) Lymphocytes (%) (Auto) 5 % (24-48) Monocytes (%) (Auto) 4 % (0-9) Eosinophils (%) (Auto) 0 % (0-3) Basophils (%) (Auto) 0 % (0-3) Neutrophils # (Auto) 12.6 x10^3/uL (1.8-7.7) Lymphocytes # (Auto) 0.6 x10^3/uL (1.0-4.8) Monocytes # (Auto) 0.5 x10^3/uL (0.0-1.1) Eosinophils # (Auto) 0.0 x10^3/uL (0.0-0.7) Basophils # (Auto) 0.0 x10^3/uL (0.0-0.2) Medications Active Scripts Medications Dose Route/Sig Max Daily Dose Days Date Category Oxycodone-Acetaminophen 5-325 (Oxycodone Hcl/Acetaminophen) 1 Each Tablet 1 Tab PO PRN Q4HRS PRN 06/30/16 Rx Latanoprost 2.5 Ml Drops 1 Drop OU QHS 06/30/16 Rx Duoneb 0.5-3(2.5) Mg/3 Ml (Albuterol/Ipratropium) 3 Ml Ampul.neb 3 Ml NEB RTQID 06/30/16 Rx Tamoxifen Citrate 20 Mg Tablet 10 Mg PO BID 04/16/16 Reported Latanoprost 2.5 Ml Drops 1 Ml OP QHS 09/23/13 Reported Triamterene-Hctz 37.5-25 Mg Cp (Triamterene/Hydrochlorothiazid) 1 Each Capsule 1 Each PO DAILY 09/23/13 Reported Aspirin Ec (Aspirin) 81 Mg Tablet.dr 81 Mg PO DAILY 09/23/13 Reported Vitamin D-3 (Cholecalciferol (Vitamin D3)) 2,000 Unit Capsule 2,000 Unit PO DAILY 09/23/[address] chest reviewed not reported yet extensive basal pneumonia L>R small portion of lung herniation RUL Impression . 1. Acute hypoxic respiratory failure secondary to underlying chronic obstructive pulmonary disease and extensive pneumonia involving the left lower lobe.and RLL 2. Underlying suspected severe chronic obstructive pulmonary disease. 3. History of lung cancer, adenocarcinoma, status post right upper lobectomy at least 10 years ago. 4. History of deep venous thrombosis around the time when the cancer was diagnosed and treated. No history of pulmonary embolism. 5. Acute kidney injury secondary to dehydration. resolved 6. Hypokalemia. resolved 7. Moderate protein-calorie malnutrition. 8. Influenza screen negative. 9. Sepsis with early shock. improved with IVF Plan . 1. Continue present oxygen to keep saturation 92% and above. add humidity to 02 2. Monitor blood pressure closely. 3. clinically better 4. BS abx per ID, Continue. Cont Meropenem/zyvox for now, D/c dapto and azithromycin 5. CT chest reviewed. extensive basal pneumonia. RUL small lung herniation likely related to lobectomy 6. increase BD to q 4hrs, add ics 7. Smoking cessation counseling provided. 8. Follow electrolytes. 9. flonase Discussed with RN, pt, and we will follow along with you. ELLIE BAILON MD Sep 25, 2019 09:20
[2019-09-25 11:00] VITALS: BP 127/56
--- NOTE | 2019-09-25 11:12 | PDOC ---
PROGRESS NOTES History of Present Illness History of Present Illness Images Images CXR - 1. Left lower lobe consolidation likely pneumonia or atelectasis. Follow- up to resolution. 2. Prominent bilateral digital lung markings likely mild congestive changes. hx Pneumonia, right upper lobectomy , lung cancer, breast cancer VTE Prophylaxis Ordered VTE Prophylaxis Devices: Yes VTE Pharmacological Prophylaxi: Yes Assessment/Plan Assessment/Plan A/P: Acute hypoxia LLL infiltrate - almost certainly pneumonia. Likely gram negative given her h/o lung cancer and structural lung disease. Levaquin appropriate. Pulm consulted. extensive basal pneumonia. RUL small lung herniation likely related to lobectomy Significant bibasilar lower lobe consolidation much greater on the left. Very small pleural effusions. NAM - likely vasomotor nephropathy, started on IVF by ED Sepsis - with tachycardia, fever, empiric antibiotics and fluids given appropriately Lactic acidosis - likely related to hypoxemia, sepsis, trend. HYPOKALEMIA FEN - General diet PPX - Lovenox FULL CODE Dispo - inpatient pulm consult REPLACE K 37 min pt exam, chart review, > 50% of time spent with exam, chart review, pt care coordination Vitals Vitals Vital Signs Date Time Temp Pulse Resp B/P (MAP) Pulse Ox O2 Delivery O2 Flow Rate FiO2 09/25/19 08:00 Nasal Cannula 5.0 09/25/19 07:50 96 09/25/19 07:00 98.4 94 16 113/47 (69) 98.4 Physical Exam Physical Exam GENERAL: Propped up in bed, alert, appears comfortable, tired HEENT: Pupils are equal and reactive. She has normal conjunctivae. Oral cavity, pharynx is without signs of thrush that was clear. NECK: Supple. LUNGS: Still coarse sounds bilaterally HEART: S1, S2. ABDOMEN: Flat, soft, nontender, no guarding, no rebound. EXTREMITIES: Without clubbing, cyanosis or gross edema. SKIN: Warm to touch without signs of rash. NEUROLOGIC: Alert, appropriate. General: Alert, Oriented X3, Cooperative, mild distress Lungs: Crackles Abdomen: Normal bowel sounds, Soft, No tenderness, No hepatosplenomegaly, No masses Extremities: No clubbing, No cyanosis, No edema, Normal pulses, No tenderness/swelling Skin: No rashes, No breakdown, No significant lesion Labs LABS Single view chest dated 09/25/2019. Comparison made to 09/22/2019. CLINICAL INDICATION: Follow-up pneumonia. FINDINGS: Single upright portable exam performed. Heart size upper limits of normal, stable. There are diffuse interstitial changes with small pleural effusions, unchanged. No new infiltrate or pneumothorax. IMPRESSION: No significant interval change in bilateral airspace disease and pleural effusions. Electronically signed by: Jeff Maher MD (09/25/2019 2:45 PM) [facility] [place] DICTATED and SIGNED BY: JEFF MAHER MD DATE: 09/25/19 1445 Examination: CT CHEST WO CONTRAST History: Pneumonia, right upper lobectomy , lung cancer, breast cancer Comparison/Correlation: 03/22/2018, 10/01/2018, 04/06/2019 CT chest without contrast exam Findings: Axial images of chest were obtained without contrast. Sagittal and coronal reformatted images provided. Reversible bilateral pleural effusions are present. Significant left lower lobe consolidation is present. Right costophrenic sulcus consolidation also is present. Right upper lobectomy noted. Anterolateral right lower lung field herniation into the chest wall is again seen. There is of a mildly greater extent than on the prior exam. No suspicious new mass. Coronary arterial calcifications present. Calcified subcarinal lymph node is present. Heart size unremarkable. Marked calcification involving the thoracic aorta is present. Partially visualized upper abdomen is unremarkable. Surgical clips are present involving the right lateral breast region. Bony structures are grossly unremarkable. Impression: Significant bibasilar lower lobe consolidation much greater on the left. Very small pleural effusions. Emphysema. Mild herniation of right lung between the fifth and sixth ribs anterolaterally again seen although greater in extent. No pneumothorax. PQRS Compliance Statement: One or more of the following individualized dose reduction techniques were utilized for this examination: 1. Automated exposure control 2. Adjustment of the mA and/or kV according to patient size 3. Use of iterative reconstruction technique Electronically signed by: Robbie Rice MD (09/23/2019 1:40 PM) [facility] Assessment and Plan Assessmemt and Plan Problems Medical Problems: (1) Acute kidney injury Status: Acute (2) Community acquired pneumonia Status: Acute (3) Dehydration Status: Acute (4) Hypoxemia Status: Acute (5) Shortness of breath Status: Acute Comment Review of Relevant I have reviewed the following items byron (where applicable) has been applied. Labs Laboratory Tests Test 09/24/19 06:45 09/24/19 06:50 Sodium Level 144 mmol/L (136-145) Potassium Level 3.0 mmol/L (3.5-5.1) Chloride Level 109 mmol/L (98-107) Carbon Dioxide Level 25 mmol/L (21-32) Anion Gap 10 (6-14) Blood Urea Nitrogen 24 mg/dL (7-20) Creatinine 0.8 mg/dL (0.6-1.0) Estimated GFR (Cockcroft-Gault) 83.5 Glucose Level 90 mg/dL (70-99) Calcium Level 9.7 mg/dL (8.5-10.1) White Blood Count 13.8 x10^3/uL (4.0-11.0) Red Blood Count 3.60 x10^6/uL (3.50-5.40) Hemoglobin 11.1 g/dL (12.0-15.5) Hematocrit 33.9 % (36.0-47.0) Mean Corpuscular Volume 94 fL (79-100) Mean Corpuscular Hemoglobin 31 pg (25-35) Mean Corpuscular Hemoglobin Concent 33 g/dL (31-37) Red Cell Distribution Width 15.1 % (11.5-14.5) Platelet Count 175 x10^3/uL (140-400) Neutrophils (%) (Auto) 91 % (31-73) Lymphocytes (%) (Auto) 5 % (24-48) Monocytes (%) (Auto) 4 % (0-9) Eosinophils (%) (Auto) 0 % (0-3) Basophils (%) (Auto) 0 % (0-3) Neutrophils # (Auto) 12.6 x10^3/uL (1.8-7.7) Lymphocytes # (Auto) 0.6 x10^3/uL (1.0-4.8) Monocytes # (Auto) 0.5 x10^3/uL (0.0-1.1) Eosinophils # (Auto) 0.0 x10^3/uL (0.0-0.7) Basophils # (Auto) 0.0 x10^3/uL (0.0-0.2) Microbiology 09/22/19 Blood Culture - Preliminary, Resulted NO GROWTH AFTER 3 DAYS Medications Current Medications Albuterol/ Ipratropium (Duoneb) 3 ml 1X ONCE NEB Last administered on 09/22/19at 05:49; Start 09/22/19 at 05:45; Stop 09/22/19 at 05:50; Status DC Levofloxacin/ Dextrose 150 ml @ 100 mls/hr 1X ONCE IV Last administered on 09/22/19at 07:21; Start 09/22/19 at 07:00; Stop 09/22/19 at 08:29; Status DC Sodium Chloride 1,000 ml @ 250 mls/hr 1X ONCE IV Last administered on 09/22/19at 07:22; Start 09/22/19 at 07:00; Stop 09/22/19 at 10:59; Status DC Acetaminophen (Tylenol) 1,000 mg 1X ONCE PO Last administered on 09/22/19 07:21; Start 09/22/19 at 07:00; Stop 09/22/19 at 07:01; Status DC Sodium Chloride 1,000 ml @ 125 mls/hr Q8H IV Last administered on 09/23/19at 00:16; Start 09/22/19 at 08:03; Stop 09/23/19 at 08:02; Status DC Acetaminophen (Tylenol) 650 mg PRN Q4HRS PRN PO FEVER Last administered on 09/22/19at 22:46; Start 09/22/19 at 08:15; Stop 09/23/19 at 08:14; Status DC Albuterol/ Ipratropium (Duoneb) 3 ml RTQID NEB Last administered on 09/23/19at 07:03; Start 09/22/19 at 12:00; Stop 09/23/19 at 11:59; Status DC Sodium Chloride 1,000 ml @ 1,000 mls/hr 1X ONCE IV Last administered on 09/29at 08:55; Start 09/22/19 at 09:00; Stop 09/22/19 at 09:59; Status DC Albumin Human 500 ml @ 125 mls/hr 1X ONCE IV Last administered on 09/22/19at 09:33; Start 09/22/19 at 09:30; Stop 09/22/19 at 13:29; Status DC Sodium Chloride 250 ml @ 250 mls/hr 1X ONCE IV Last administered on 09/22/19at 10:56; Start 09/22/19 at 10:45; Stop 09/22/19 at 11:44; Status DC Influenza Virus Vaccine Quadrival (Afluria Quad 2019-20 (3yr Up) Syringe) 0.5 ml ONCE ONCE VAX IM ; Start 09/23/19 at 09:00; Stop 09/23/19 at 09:01; Status DC Levofloxacin/ Dextrose (Levaquin Per Pharmacy) 1 each PRN DAILY PRN MC SEE COMMENTS; Start 09/22/19 at 12:15; Stop 09/22/19 at 15:06; Status DC Levofloxacin/ Dextrose 150 ml @ 100 mls/hr Q48H IV ; Start 09/24/19 at 06:00; Stop 09/22/19 at 15:06; Status DC Meropenem 500 mg/ Sodium Chloride 50 ml @ 100 mls/hr Q6HRS IV Last administered on 09/25/19at 05:35; Start 09/22/19 at 18:00 Daptomycin 430 mg/ Sodium Chloride 50 ml @ 100 mls/hr Q48H IV Last administered on 09/22/19at 16:13; Start 09/22/19 at 15:00; Stop 09/23/19 at 08:50; Status DC Linezolid (Zyvox) 600 mg BID PO Last administered on 09/25/19at 08:06; Start 09/22/19 at 21:00 Doxycycline Hyclate (Vibra-Tab) 100 mg BID PO ; Start 09/23/19 at 09:00; Stop 09/23/19 at 08:50; Status DC Heparin Sodium (Porcine) (Heparin Sodium) 5,000 unit BID SQ Last administered on 09/25/19at 08:36; Start 09/22/19 at 16:00 Daptomycin 430 mg/ Sodium Chloride 50 ml @ 100 mls/hr Q24H IV Last administered on 09/24/19at 15:50; Start 09/23/19 at 15:00 Azithromycin (Zithromax) 500 mg DAILY PO Last administered on 09/25/19at 08:11; Start 09/23/19 at 09:00 Albuterol/ Ipratropium (Duoneb) 3 ml RTQID NEB Last administered on 09/25/19at 07:49; Start 09/23/19 at 17:00; Stop 09/25/19 at 09:21; Status DC Fluticasone Propionate (Flonase) 2 spray DAILY NS Last administered on 09/25/19at 08:11; Start 09/24/19 at 10:00 Potassium Chloride (Klor-Con) 40 meq 1X ONCE PO Last administered on 09/24/19at 11:23; Start 09/24/19 at 11:00; Stop 09/24/19 at 11:01; Status DC Potassium Chloride (Klor-Con) 20 meq [id number] PO Last administered on 09/25/19at 08:06; Start 09/25/19 at 08:00 Albuterol/ Ipratropium (Duoneb) 3 ml Q4HRS NEB ; Start 09/25/19 at 12:00 Active Scripts Active Oxycodone-Acetaminophen 5-325 (Oxycodone Hcl/Acetaminophen) 1 Each Tablet 1 Tab PO PRN Q4HRS PRN Latanoprost 2.5 Ml Drops 1 Drop OU QHS Duoneb 0.5-3(2.5) Mg/3 Ml (Albuterol/Ipratropium) 3 Ml Ampul.neb 3 Ml NEB RTQID Reported Tamoxifen Citrate 20 Mg Tablet 10 Mg PO BID Latanoprost 2.5 Ml Drops 1 Ml OP QHS Triamterene-Hctz 37.5-25 Mg Cp (Triamterene/Hydrochlorothiazid) 1 Each Capsule 1 Each PO DAILY Aspirin Ec (Aspirin) 81 Mg Tablet.dr 81 Mg PO DAILY Vitamin D-3 (Cholecalciferol (Vitamin D3)) 2,000 Unit Capsule 2,000 Unit PO DAILY Vitals/I & O Vital Sign - Last 24 Hours 09/24/19 09/24/19 09/24/19 09/24/19 11:31 15:00 15:12 19:55 Temp 98.2 98.2 Pulse 103 Resp 20 B/P (MAP) 98/48 (65) Pulse Ox 93 93 O2 Delivery Nasal Cannula Nasal Cannula Nasal Cannula Nasal Cannula O2 Flow Rate 5.0 5.0 5.0 5.0 09/24/19 09/24/19 09/24/19 09/25/19 19:58 20:00 22:35 02:47 Temp 98.1 98.7 99.1 98.1 98.7 99.1 Pulse 89 99 92 Resp 20 18 16 B/P (MAP) 121/55 (77) 117/59 (78) 102/45 (64) Pulse Ox 97 96 96 O2 Delivery Nasal Cannula Nasal Cannula Nasal Cannula Nasal Cannula O2 Flow Rate 5.0 5.0 5.0 5.0 09/25/19 09/25/19 09/25/19 07:00 07:50 08:00 Temp 98.4 98.4 Pulse 94 Resp 16 B/P (MAP) 113/47 (69) Pulse Ox 95 96 O2 Delivery Nasal Cannula Nasal Cannula Nasal Cannula O2 Flow Rate 5.0 5.0 5.0 Intake and Output 09/24/19 09/24/19 09/25/19 15:00 23:00 07:00 Intake Total 1100 ml 100 ml Output Total 2 ml Balance 1098 ml 100 ml Nutrition Consultation Dietary Evaluation: Recommendations by RD: Dietary education by RD, Increase Calorie Intake, Protein supplementation Comments: boost supplements from home Expected Outcomes/Goals: to meet >75% est nutr needs via meals and supplements. Malnutrition Findings: Food and Nutrition Intake (Mod: <75% est energy req 7days Weight Status: Appropriate CARLOS EDUARDO SANTIAGO MD Sep 25, 2019 11:12
--- NOTE | 2019-09-25 13:10 | PDOC ---
Infectious Disease Note Subjective Subjective Still not very hungry c/o muscle aches, legs left shoulder O2 down to 4L + BM Denies SOA/F/C/N/V/D ROS ROS per HPI Vital Sign Vital Signs Vital Signs Date Time Temp Pulse Resp B/P (MAP) Pulse Ox O2 Delivery O2 Flow Rate FiO2 09/25/19 12:35 92 Nasal Cannula 5.0 09/25/19 11:00 98.6 100 18 127/56 (79) 98.6 Physical Exam PHYSICAL EXAM GENERAL: Propped up in bed, alert, appears comfortable, tired HEENT: Oral cavity, pharynx clear. NECK: Supple. LUNGS: Improved aeration HEART: S1, S2. ABDOMEN: Flat, soft, nontender, no guarding EXTREMITIES: Without clubbing, cyanosis or gross edema. SKIN: Warm to touch without signs of rash. NEUROLOGIC: Alert, appropriate. Labs Micro Microbiology 09/22/19 Blood Culture - Preliminary, Resulted NO GROWTH AFTER 3 DAYS Objective Assessment Sepsis - POA 09/22 - improved Mycoplasma + PCN allergy - rash -uncertain if ever had Amox/Augmentin/Cephalexin - etc. Bandemia LL pneumonia - better NAM - better H/o lung CA 2019 s/p lobectomy and chemo Tobacco abuse Plan Plan of Care D/c dapto and azithromycin Cont Meropenem, and zyvox for now Isolation contact and droplet strep antigen/legionella pending BC neg so far Attending Co-Sign The patient was seen and interviewed as well as examined at the bedside. The chart was reviewed. The case was discussed. Agree with the plan of care. KAVEH FARIAS APRN Sep 25, 2019 13:10 ERICA HOWARD MD Sep 25, 2019 13:12
[2019-09-25 14:18] LABS: CALCIUM 9.1 mg/dL (8.5-10.1); CREATININE 0.7 mg/dL (0.6-1.0); GFR 97.4; POTASSIUM 3.8 mmol/L (3.5-5.1)
--- NOTE | 2019-09-25 14:48 | RAD ---
Single view chest dated 09/25/2019. Comparison made to 09/22/2019. CLINICAL INDICATION: Follow-up pneumonia. FINDINGS: Single upright portable exam performed. Heart size upper limits of normal, stable. There are diffuse interstitial changes with small pleural effusions, unchanged. No new infiltrate or pneumothorax. IMPRESSION: No significant interval change in bilateral airspace disease and pleural effusions. Electronically signed by: Jeff Maher MD (09/25/2019 2:45 PM) [facility] [place]
[2019-09-25 15:00] VITALS: BP 118/53
[2019-09-25] MEDS ORDERED: guaiFENesin DM 200MG/20MG 10 ML SYRUP PO PRN (17:45)
[2019-09-25] MEDS: guaiFENesin ORAL 200 MG/10 ML LIQUID. PO PRN ×2 (17:57→23:53)
[2019-09-25] MEDS: ACETAMINOPHEN 325 MG TABLET. PO PRN ×2 (17:57→23:53)
[2019-09-25 19:19] VITALS: BP 109/57
[2019-09-25] MEDS: BUDESONIDE 0.5 MG/2 ML NEBU. NEB SCH (20:38)
[2019-09-25 23:53] VITALS: BP 114/54
[2019-09-26] VITALS (7 sets, daily range): BP systolic 112–168; BP diastolic 53–81
[2019-09-26] MEDS: IPRATRPIUM/ALBUTEROL 0.5/2.5MG 3 ML NEBU. NEB SCH ×6 (04:57→19:15)
[2019-09-26] MEDS: MEROPENEM 500 MG in IV NORMAL SALINE 50ML 50 ML IV SCH ×4 (05:22→23:03)
--- NOTE | 2019-09-26 08:22 | PDOC ---
PROGRESS NOTES History of Present Illness History of Present Illness Images Images CXR - 1. Left lower lobe consolidation likely pneumonia or atelectasis. Follow- up to resolution. 2. Prominent bilateral digital lung markings likely mild congestive changes. hx Pneumonia, right upper lobectomy , lung cancer, breast cancer VTE Prophylaxis Ordered VTE Prophylaxis Devices: Yes VTE Pharmacological Prophylaxi: Yes Assessment/Plan Assessment/Plan A/P: Acute hypoxia LLL infiltrate - almost certainly pneumonia. Likely gram negative given her h/o lung cancer and structural lung disease. Levaquin appropriate. Pulm consulted. extensive basal pneumonia. RUL small lung herniation likely related to lobectomy Significant bibasilar lower lobe consolidation much greater on the left. Very small pleural effusions. NAM - likely vasomotor nephropathy, started on IVF by ED Sepsis - with tachycardia, fever, empiric antibiotics and fluids given appropriately Lactic acidosis - likely related to hypoxemia, sepsis, trend. HYPOKALEMIA FEN - General diet PPX - Lovenox FULL CODE Dispo - inpatient pulm consult REPLACE K D/c dapto and azithromycin Cont Meropenem, IV 37 min pt exam, chart review, > 50% of time spent with exam, chart review, pt care coordination Vitals Vitals Vital Signs Date Time Temp Pulse Resp B/P (MAP) Pulse Ox O2 Delivery O2 Flow Rate FiO2 09/26/19 07:00 98.0 101 20 135/58 (83) 94 Nasal Cannula 5.0 98.0 Physical Exam Physical Exam GENERAL: Propped up in bed, alert, appears comfortable, tired HEENT: Oral cavity, pharynx clear. NECK: Supple. LUNGS: Improved aeration HEART: S1, S2. ABDOMEN: Flat, soft, nontender, no guarding EXTREMITIES: Without clubbing, cyanosis or gross edema. SKIN: Warm to touch without signs of rash. NEUROLOGIC: Alert, appropriate. General: Alert, Oriented X3, Cooperative, mild distress Lungs: Wheezing Abdomen: Normal bowel sounds, Soft, No tenderness, No hepatosplenomegaly, No masses Extremities: No clubbing, No cyanosis, No edema, Normal pulses, No tenderness/swelling Skin: No rashes, No breakdown, No significant lesion Labs LABS Single view chest dated 09/25/2019. Comparison made to 09/22/2019. CLINICAL INDICATION: Follow-up pneumonia. FINDINGS: Single upright portable exam performed. Heart size upper limits of normal, stable. There are diffuse interstitial changes with small pleural effusions, unchanged. No new infiltrate or pneumothorax. IMPRESSION: No significant interval change in bilateral airspace disease and pleural effusions. Electronically signed by: Jeff Maher MD (09/25/2019 2:45 PM) [facility] [place] and SIGNED BY: JEFF MAHER MD DATE: 09/25/19 144 Laboratory Tests Test 09/25/19 13:50 Sodium Level 143 mmol/L (136-145) Potassium Level 3.8 mmol/L (3.5-5.1) Chloride Level 107 mmol/L (98-107) Carbon Dioxide Level 27 mmol/L (21-32) Anion Gap 9 (6-14) Blood Urea Nitrogen 20 mg/dL (7-20) Creatinine 0.7 mg/dL (0.6-1.0) Estimated GFR (Cockcroft-Gault) 97.4 Glucose Level 99 mg/dL (70-99) Calcium Level 9.1 mg/dL (8.5-10.1) Assessment and Plan Assessmemt and Plan Problems Medical Problems: (1) Acute kidney injury Status: Acute (2) Community acquired pneumonia Status: Acute (3) Dehydration Status: Acute (4) Hypoxemia Status: Acute (5) Shortness of breath Status: Acute Comment Review of Relevant I have reviewed the following items byron (where applicable) has been applied. Labs Laboratory Tests Test 09/25/19 13:50 Sodium Level 143 mmol/L (136-145) Potassium Level 3.8 mmol/L (3.5-5.1) Chloride Level 107 mmol/L (98-107) Carbon Dioxide Level 27 mmol/L (21-32) Anion Gap 9 (6-14) Blood Urea Nitrogen 20 mg/dL (7-20) Creatinine 0.7 mg/dL (0.6-1.0) Estimated GFR (Cockcroft-Gault) 97.4 Glucose Level 99 mg/dL (70-99) Calcium Level 9.1 mg/dL (8.5-10.1) Laboratory Tests Test 09/25/19 13:50 Sodium Level 143 mmol/L (136-145) Potassium Level 3.8 mmol/L (3.5-5.1) Chloride Level 107 mmol/L (98-107) Carbon Dioxide Level 27 mmol/L (21-32) Anion Gap 9 (6-14) Blood Urea Nitrogen 20 mg/dL (7-20) Creatinine 0.7 mg/dL (0.6-1.0) Estimated GFR (Cockcroft-Gault) 97.4 Glucose Level 99 mg/dL (70-99) Calcium Level 9.1 mg/dL (8.5-10.1) Microbiology 09/22/19 Blood Culture - Preliminary, Resulted NO GROWTH AFTER 4 DAYS Medications Current Medications Albuterol/ Ipratropium (Duoneb) 3 ml 1X ONCE NEB Last administered on 09/22/19at 05:49; Start 09/22/19 at 05:45; Stop 09/22/19 at 05:50; Status DC Levofloxacin/ Dextrose 150 ml @ 100 mls/hr 1X ONCE IV Last administered on 09/22/19at 07:21; Start 09/22/19 at 07:00; Stop 09/22/19 at 08:29; Status DC Sodium Chloride 1,000 ml @ 250 mls/hr 1X ONCE IV Last administered on 09/22/19at 07:22; Start 09/22/19 at 07:00; Stop 09/22/19 at 10:59; Status DC Acetaminophen (Tylenol) 1,000 mg 1X ONCE PO Last administered on 09/22/19at 07:21; Start 09/22/19 at 07:00; Stop 09/22/19 at 07:01; Status DC Sodium Chloride 1,000 ml @ 125 mls/hr Q8H IV Last administered on 09/23/19at 00:16; Start 09/22/19 at 08:03; Stop 09/23/19 at 08:02; Status DC Acetaminophen (Tylenol) 650 mg PRN Q4HRS PRN PO FEVER Last administered on 09/22/19at 22:46; Start 09/22/19 at 08:15; Stop 09/23/19 at 08:14; Status DC Albuterol/ Ipratropium (Duoneb) 3 ml RTQID NEB Last administered on 09/23/19at 07:03; Start 09/22/19 at 12:00; Stop 09/23/19 at 11:59; Status DC Sodium Chloride 1,000 ml @ 1,000 mls/hr 1X ONCE IV Last administered on 09/22/19at 08:55; Start 09/22/19 at 09:00; Stop 09/22/19 at 09:59; Status DC Albumin Human 500 ml @ 125 mls/hr 1X ONCE IV Last administered on 09/22/19at 09:33; Start 09/22/19 at 09:30; Stop 09/22/19 at 13:29; Status DC Sodium Chloride 250 ml @ 250 mls/hr 1X ONCE IV Last administered on 09/22/19at 10:56; Start 09/22/19 at 10:45; Stop 09/22/19 at 11:44; Status DC Influenza Virus Vaccine Quadrival (Afluria Quad 2019-20 (3yr Up) Syringe) 0.5 ml ONCE ONCE VAX IM ; Start 09/23/19 at 09:00; Stop 09/23/19 at 09:01; Status DC Levofloxacin/ Dextrose (Levaquin Per Pharmacy) 1 each PRN DAILY PRN MC SEE COMMENTS; Start 09/22/19 at 12:15; Stop 09/22/19 at 15:06; Status DC Levofloxacin/ Dextrose 150 ml @ 100 mls/hr Q48H IV ; Start 09/24/19 at 06:00; Stop 09/22/19 at 15:06; Status DC Meropenem 500 mg/ Sodium Chloride 50 ml @ 100 mls/hr Q6HRS IV Last administered on 09/26/19at 05:22; Start 09/22/19 at 18:00 Daptomycin 430 mg/ Sodium Chloride 50 ml @ 100 mls/hr Q48H IV Last administered on 09/22/19at 16:13; Start 09/22/19 at 15:00; Stop 09/23/19 at 08:50; Status DC Linezolid (Zyvox) 600 mg BID PO Last administered on 09/25/19at 20:52; Start 09/22/19 at 21:00 Doxycycline Hyclate (Vibra-Tab) 100 mg BID PO ; Start 09/23/19 at 09:00; Stop 09/23/19 at 08:50; Status DC Heparin Sodium (Porcine) (Heparin Sodium) 5,000 unit BID SQ Last administered on 09/25/19at 21:02; Start 09/22/19 at 16:00 Daptomycin 430 mg/ Sodium Chloride 50 ml @ 100 mls/hr Q24H IV Last administered on 09/24/19at 15:50; Start 09/23/19 at 15:00; Stop 09/25/19 at 13:09; Status DC Azithromycin (Zithromax) 500 mg DAILY PO Last administered on 09/25/19 08:11; Start 09/23/19 at 09:00; Stop 09/25/19 at 13:09; Status DC Albuterol/ Ipratropium (Duoneb) 3 ml RTQID NEB Last administered on 09/25/19at 07:49; Start 09/23/19 at 17:00; Stop 09/25/19 at 09:21; Status DC Fluticasone Propionate (Flonase) 2 spray DAILY NS Last administered on 08:11; Start 09/24/19 at 10:00 Potassium Chloride (Klor-Con) 40 meq 1X ONCE PO Last administered on 09/24/19at 11:23; Start 09/24/19 at 11:00; Stop 09/24/19 at 11:01; Status DC Potassium Chloride (Klor-Con) 20 meq DAILYWBKFT PO Last administered on 09/25/19at 08:06; Start 09/25/19 at 08:00 Albuterol/ Ipratropium (Duoneb) 3 ml Q4HRS NEB Last administered on 09/26/19at 04:57; Start 09/25/19 at 12:00 Budesonide (Pulmicort) 0.5 mg RTBID NEB Last administered on 09/25/19at 20:38; Start 09/25/19 at 20:00 Acetaminophen (Tylenol) 650 mg PRN Q6HRS PRN PO PAIN Last administered on 09/25/19at 23:53; Start 09/25/19 at 17:45 Guaifenesin (Robitussin Dm) 10 ml PRN Q6HRS PRN PO COUGH; Start 09/25/19 at 17:45; Status Cancel Guaifenesin (Robitussin) 200 mg PRN Q6HRS PRN PO COUGH Last administered on 09/25/19at 23:53; Start 09/25/19 at 18:00 Active Scripts Active Oxycodone-Acetaminophen 5-325 (Oxycodone Hcl/Acetaminophen) 1 Each Tablet 1 Tab PO PRN Q4HRS PRN Latanoprost 2.5 Ml Drops 1 Drop OU QHS Duoneb 0.5-3(2.5) Mg/3 Ml (Albuterol/Ipratropium) 3 Ml Ampul.neb 3 Ml NEB RTQID Reported Tamoxifen Citrate 20 Mg Tablet 10 Mg PO BID Latanoprost 2.5 Ml Drops 1 Ml OP QHS Triamterene-Hctz 37.5-25 Mg Cp (Triamterene/Hydrochlorothiazid) 1 Each Capsule 1 Each PO DAILY Aspirin Ec (Aspirin) 81 Mg Tablet.dr 81 Mg PO DAILY Vitamin D-3 (Cholecalciferol (Vitamin D3)) 2,000 Unit Capsule 2,000 Unit PO DAILY Vitals/I & O Vital Sign - Last 24 Hours 09/25/19 09/25/19 09/25/19 09/25/19 11:00 12:35 15:00 15:10 Temp 98.6 99.0 98.6 99.0 Pulse 100 99 Resp 18 18 B/P (MAP) 127/56 (79) 118/53 (74) Pulse Ox 97 92 93 91 O2 Delivery Nasal Cannula Nasal Cannula Nasal Cannula Nasal Cannula O2 Flow Rate 5.0 5.0 5.0 5.0 09/25/19 09/25/19 09/25/19 09/25/19 19:19 20:00 20:39 23:53 Temp 98.2 97.6 98.2 97.6 Pulse 105 98 Resp 24 26 B/P (MAP) 109/57 (74) 114/54 (74) Pulse Ox 93 91 95 O2 Delivery Nasal Cannula Nasal Cannula Nasal Cannula Nasal Cannula O2 Flow Rate 4.5 5.0 5.0 5.0 09/26/19 09/26/19 09/26/19 09/26/19 01:03 03:10 04:58 07:00 Temp 98.0 98.0 98.0 98.0 Pulse 107 101 Resp 20 20 B/P (MAP) 124/81 (95) 135/58 (83) Pulse Ox 91 93 91 94 O2 Delivery Nasal Cannula Nasal Cannula Nasal Cannula Nasal Cannula O2 Flow Rate 5.0 5.0 5.0 5.0 Intake and Output 09/25/19 09/25/19 09/26/19 14:59 22:59 06:59 Intake Total 400 ml Balance 400 ml Nutrition Consultation Dietary Evaluation: Recommendations by RD: Dietary education by RD, Increase Calorie Intake, Protein supplementation Comments: boost supplements from home Expected Outcomes/Goals: to meet >75% est nutr needs via meals and supplements. Malnutrition Findings: Food and Nutrition Intake (Mod: <75% est energy req 7days Weight Status: Appropriate CARLOS EDUARDO SANTIAGO MD Sep 26, 2019 08:22
[2019-09-26] MEDS: LINEZOLID 600 MG TABLET PO SCH (08:32)
[2019-09-26] MEDS: guaiFENesin ORAL 200 MG/10 ML LIQUID. PO PRN ×2 (08:33→17:49)
[2019-09-26] MEDS: POTASSIUM CHLORIDE 20 MEQ TABLET.ER. PO SCH (08:33)
[2019-09-26] MEDS: BUDESONIDE 0.5 MG/2 ML NEBU. NEB SCH ×2 (08:33→19:15)
[2019-09-26] MEDS: FLUTICASONE 50MCG/NASAL SPRAY 16GM BOTTLE. NS SCH (08:34)
--- NOTE | 2019-09-26 08:37 | PDOC ---
PULMONARY PROGRESS NOTES Subjective PT AT TIMES MORE SOA APPETITE IS POOR Vitals Vital Signs Date Time Temp Pulse Resp B/P (MAP) Pulse Ox O2 Delivery O2 Flow Rate FiO2 09/26/19 07:00 98.0 101 20 135/58 (83) 94 Nasal Cannula 5.0 98.0 ROS: No Nausea General: Alert, No acute distress Lungs: Wheezing Cardiovascular: S1, S2 Abdomen: Soft, Non-tender Neuro Exam: Alert Extremities: No Edema Skin: Warm Labs Laboratory Tests Test 09/25/19 13:50 Sodium Level 143 mmol/L (136-145) Potassium Level 3.8 mmol/L (3.5-5.1) Chloride Level 107 mmol/L (98-107) Carbon Dioxide Level 27 mmol/L (21-32) Anion Gap 9 (6-14) Blood Urea Nitrogen 20 mg/dL (7-20) Creatinine 0.7 mg/dL (0.6-1.0) Estimated GFR (Cockcroft-Gault) 97.4 Glucose Level 99 mg/dL (70-99) Calcium Level 9.1 mg/dL (8.5-10.1) Laboratory Tests Test 09/25/19 13:50 Sodium Level 143 mmol/L (136-145) Potassium Level 3.8 mmol/L (3.5-5.1) Chloride Level 107 mmol/L (98-107) Carbon Dioxide Level 27 mmol/L (21-32) Anion Gap 9 (6-14) Blood Urea Nitrogen 20 mg/dL (7-20) Creatinine 0.7 mg/dL (0.6-1.0) Estimated GFR (Cockcroft-Gault) 97.4 Glucose Level 99 mg/dL (70-99) Calcium Level 9.1 mg/dL (8.5-10.1) Medications Active Scripts Medications Dose Route/Sig Max Daily Dose Days Date Category Oxycodone-Acetaminophen 5-325 (Oxycodone Hcl/Acetaminophen) 1 Each Tablet 1 Tab PO PRN Q4HRS PRN 06/30/16 Rx Latanoprost 2.5 Ml Drops 1 Drop OU QHS 06/30/16 Rx Duoneb 0.5-3(2.5) Mg/3 Ml (Albuterol/Ipratropium) 3 Ml Ampul.neb 3 Ml NEB RTQID 06/30/16 Rx Tamoxifen Citrate 20 Mg Tablet 10 Mg PO BID 7/6/16 Reported Latanoprost 2.5 Ml Drops 1 Ml OP QHS 09/23/13 Reported Triamterene-Hctz 37.5-25 Mg Cp (Triamterene/Hydrochlorothiazid) 1 Each Capsule 1 Each PO DAILY 09/23/13 Reported Aspirin Ec (Aspirin) 81 Mg Tablet.dr 81 Mg PO DAILY 09/23/13 Reported Vitamin D-3 (Cholecalciferol (Vitamin D3)) 2,000 Unit Capsule 2,000 Unit PO DAILY 09/23/[address] chest reviewed not reported yet extensive basal pneumonia L>R small portion of lung herniation RUL Impression . 1. Acute hypoxic respiratory failure secondary to underlying chronic obstructive pulmonary disease and extensive pneumonia involving the left lower lobe.and RLL 2. Underlying suspected severe chronic obstructive pulmonary disease. 3. History of lung cancer, adenocarcinoma, status post right upper lobectomy at least 10 years ago. 4. History of deep venous thrombosis around the time when the cancer was diagnosed and treated. No history of pulmonary embolism. 5. Acute kidney injury secondary to dehydration. resolved 6. Hypokalemia. resolved 7. Moderate protein-calorie malnutrition. 8. Influenza screen negative. 9. Sepsis with early shock. improved with IVF Plan . CONTINUE ANTIBX PER ID 02 D/C SMOKING NUTRITIONAL SUPPORT JASON MUÑOZ MD Sep 26, 2019 08:37
[2019-09-26] MEDS: HEPARIN for SUB-Q USE 5,000 UNIT/ML VIAL. SQ SCH ×2 (08:38→19:28)
--- NOTE | 2019-09-26 09:38 | NUR ---
IP: Pt is Mycoplasma + with Dr. Jackson ordering both contact and droplet precautions.
--- NOTE | 2019-09-26 12:12 | PDOC ---
Infectious Disease Note Subjective Subjective Still not very hungry c/o muscle aches, legs left shoulder O2 down to 4L + BM Denies SOA/F/C/N/V/D Vital Sign Vital Signs Vital Signs Date Time Temp Pulse Resp B/P (MAP) Pulse Ox O2 Delivery O2 Flow Rate FiO2 09/26/19 11:47 156/69 (98) 09/26/19 11:45 98.6 113 26 91 Nasal Cannula 5.0 98.6 Physical Exam PHYSICAL EXAM GENERAL: Propped up in bed, alert, appears comfortable, tired HEENT: Oral cavity, pharynx clear. NECK: Supple. LUNGS: Improved aeration HEART: S1, S2. ABDOMEN: Flat, soft, nontender, no guarding EXTREMITIES: Without clubbing, cyanosis or gross edema. SKIN: Warm to touch without signs of rash. NEUROLOGIC: Alert, appropriate. Labs Lab Laboratory Tests Test 09/25/19 13:50 Sodium Level 143 mmol/L (136-145) Potassium Level 3.8 mmol/L (3.5-5.1) Chloride Level 107 mmol/L (98-107) Carbon Dioxide Level 27 mmol/L (21-32) Anion Gap 9 (6-14) Blood Urea Nitrogen 20 mg/dL (7-20) Creatinine 0.7 mg/dL (0.6-1.0) Estimated GFR (Cockcroft-Gault) 97.4 Glucose Level 99 mg/dL (70-99) Calcium Level 9.1 mg/dL (8.5-10.1) Micro Microbiology 09/22/19 Blood Culture - Preliminary, Resulted NO GROWTH AFTER 4 DAYS Objective Assessment Sepsis - POA 09/22 - improved Mycoplasma + PCN allergy - rash -uncertain if ever had Amox/Augmentin/Cephalexin - etc. Bandemia LL pneumonia - better NAM - better H/o lung CA 2019 s/p lobectomy and chemo Tobacco abuse Strep pneumo antigen + Plan Plan of Care D/c dapto and azithromycin Cont Meropenem, and d/c zyvox for now Isolation contact and droplet strep antigen/legionella pending BC neg so far ERICA HOWARD MD Sep 26, 2019 12:11
--- NOTE | 2019-09-26 14:07 | NUR ---
SS following up with discharge planning. PT/OT ordered. SS will await PT/OT evaluations and recommendations and will proceed accordingly with discharge planning.
--- NOTE | 2019-09-26 15:18 | NUR ---
Patient became more of short of breath after getting up to the bedside commode. Patient O2 sat decreased to 87-88% with notable increased effort in breathing. She recovered after 5 mins, O2 sat at 93-95% at 5 LPM of oxygen per nasal cannula. Bed rodríguez was placed in room for use instead of commode while dyspneic. The patient was positioned in high back rest, call light placed within reach. We'll continue to monitor.
[2019-09-26] MEDS: ACETAMINOPHEN 325 MG TABLET. PO PRN (17:49)
[2019-09-27 03:22] VITALS: BP 149/63
[2019-09-27] MEDS: IPRATRPIUM/ALBUTEROL 0.5/2.5MG 3 ML NEBU. NEB SCH ×7 (03:48→23:41)
[2019-09-27] MEDS: MEROPENEM 500 MG in IV NORMAL SALINE 50ML 50 ML IV SCH (05:44)
[2019-09-27] MEDS: ACETAMINOPHEN 325 MG TABLET. PO PRN (05:44)
[2019-09-27 06:02] LABS: BASO % 0 % (0-3); EOS % 0 % (0-3); HEMOGLOBIN 10.2 g/dL (12.0-15.5); LYMPH # 1.2 x10^3/uL (1.0-4.8); LYMPH % 10 % (24-48); MEAN CORPUSCULAR HEMOGLOBIN 31 pg (25-35); MEAN CORPUSCULAR HGB CONC 33 g/dL (31-37); MEAN CORPUSCULAR VOLUME 94 fL (79-100); MONO # 0.5 x10^3/uL (0.0-1.1); MONO % 4 % (0-9); NEUT # 10.2 x10^3/uL (1.8-7.7); NEUT % 86 % (31-73); PLATELET COUNT 215 x10^3/uL (140-400); RED BLOOD COUNT 3.31 x10^6/uL (3.50-5.40); RED CELL DISTRIBUTION WIDTH 14.7 % (11.5-14.5); WHITE BLOOD COUNT 11.9 x10^3/uL (4.0-11.0)
[2019-09-27 06:37] LABS: CREATININE 0.7 mg/dL (0.6-1.0); GFR 97.4; POTASSIUM 3.8 mmol/L (3.5-5.1); TOTAL BILIRUBIN 0.6 mg/dL (0.2-1.0); TOTAL PROTEIN 4.9 g/dL (6.4-8.2)
[2019-09-27 06:53] LABS: ALBUMIN 1.8 g/dL (3.4-5.0); ALBUMIN/GLOBULIN RATIO 0.6 (1.0-1.7)
--- NOTE | 2019-09-27 07:19 | PDOC ---
PULMONARY PROGRESS NOTES Subjective PT LESS SOA Vitals Vital Signs Date Time Temp Pulse Resp B/P (MAP) Pulse Ox O2 Delivery O2 Flow Rate FiO2 09/27/19 03:52 Nasal Cannula 5.0 09/27/19 03:22 98.0 110 22 149/63 (91) 92 98.0 ROS: No Nausea, No Chest Pain, No Abdominal Pain, No Increase Cough General: Alert, No acute distress Lungs: Wheezing Cardiovascular: S1, S2 Abdomen: Soft, Non-tender Neuro Exam: Alert Extremities: No Edema Skin: Warm Labs Laboratory Tests Test 09/25/19 13:50 09/27/19 04:13 Sodium Level 143 mmol/L (136-145) 146 mmol/L (136-145) Potassium Level 3.8 mmol/L (3.5-5.1) 3.8 mmol/L (3.5-5.1) Chloride Level 107 mmol/L (98-107) 109 mmol/L (98-107) Carbon Dioxide Level 27 mmol/L (21-32) 28 mmol/L (21-32) Anion Gap 9 (6-14) 9 (6-14) Blood Urea Nitrogen 20 mg/dL (7-20) 20 mg/dL (7-20) Creatinine 0.7 mg/dL (0.6-1.0) 0.7 mg/dL (0.6-1.0) Estimated GFR (Cockcroft-Gault) 97.4 97.4 Glucose Level 99 mg/dL (70-99) 86 mg/dL (70-99) Calcium Level 9.1 mg/dL (8.5-10.1) 9.0 mg/dL (8.5-10.1) White Blood Count 11.9 x10^3/uL (4.0-11.0) Red Blood Count 3.31 x10^6/uL (3.50-5.40) Hemoglobin 10.2 g/dL (12.0-15.5) Hematocrit 31.0 % (36.0-47.0) Mean Corpuscular Volume 94 fL (79-100) Mean Corpuscular Hemoglobin 31 pg (25-35) Mean Corpuscular Hemoglobin Concent 33 g/dL (31-37) Red Cell Distribution Width 14.7 % (11.5-14.5) Platelet Count 215 x10^3/uL (140-400) Neutrophils (%) (Auto) 86 % (31-73) Lymphocytes (%) (Auto) 10 % (24-48) Monocytes (%) (Auto) 4 % (0-9) Eosinophils (%) (Auto) 0 % (0-3) Basophils (%) (Auto) 0 % (0-3) Neutrophils # (Auto) 10.2 x10^3/uL (1.8-7.7) Lymphocytes # (Auto) 1.2 x10^3/uL (1.0-4.8) Monocytes # (Auto) 0.5 x10^3/uL (0.0-1.1) Eosinophils # (Auto) 0.0 x10^3/uL (0.0-0.7) Basophils # (Auto) 0.0 x10^3/uL (0.0-0.2) BUN/Creatinine Ratio 29 (6-20) Total Bilirubin 0.6 mg/dL (0.2-1.0) Aspartate Amino Transf (AST/SGOT) 23 U/L (15-37) Alanine Aminotransferase (ALT/SGPT) 13 U/L (14-59) Alkaline Phosphatase 43 U/L (46-116) Total Protein 4.9 g/dL (6.4-8.2) Albumin 1.8 g/dL (3.4-5.0) Albumin/Globulin Ratio 0.6 (1.0-1.7) Laboratory Tests Test 09/27/19 04:13 White Blood Count 11.9 x10^3/uL (4.0-11.0) Red Blood Count 3.31 x10^6/uL (3.50-5.40) Hemoglobin 10.2 g/dL (12.0-15.5) Hematocrit 31.0 % (36.0-47.0) Mean Corpuscular Volume 94 fL (79-100) Mean Corpuscular Hemoglobin 31 pg (25-35) Mean Corpuscular Hemoglobin Concent 33 g/dL (31-37) Red Cell Distribution Width 14.7 % (11.5-14.5) Platelet Count 215 x10^3/uL (140-400) Neutrophils (%) (Auto) 86 % (31-73) Lymphocytes (%) (Auto) 10 % (24-48) Monocytes (%) (Auto) 4 % (0-9) Eosinophils (%) (Auto) 0 % (0-3) Basophils (%) (Auto) 0 % (0-3) Neutrophils # (Auto) 10.2 x10^3/uL (1.8-7.7) Lymphocytes # (Auto) 1.2 x10^3/uL (1.0-4.8) Monocytes # (Auto) 0.5 x10^3/uL (0.0-1.1) Eosinophils # (Auto) 0.0 x10^3/uL (0.0-0.7) Basophils # (Auto) 0.0 x10^3/uL (0.0-0.2) Sodium Level 146 mmol/L (136-145) Potassium Level 3.8 mmol/L (3.5-5.1) Chloride Level 109 mmol/L (98-107) Carbon Dioxide Level 28 mmol/L (21-32) Anion Gap 9 (6-14) Blood Urea Nitrogen 20 mg/dL (7-20) Creatinine 0.7 mg/dL (0.6-1.0) Estimated GFR (Cockcroft-Gault) 97.4 BUN/Creatinine Ratio 29 (6-20) Glucose Level 86 mg/dL (70-99) Calcium Level 9.0 mg/dL (8.5-10.1) Total Bilirubin 0.6 mg/dL (0.2-1.0) Aspartate Amino Transf (AST/SGOT) 23 U/L (15-37) Alanine Aminotransferase (ALT/SGPT) 13 U/L (14-59) Alkaline Phosphatase 43 U/L (46-116) Total Protein 4.9 g/dL (6.4-8.2) Albumin 1.8 g/dL (3.4-5.0) Albumin/Globulin Ratio 0.6 (1.0-1.7) Medications Active Scripts Medications Dose Route/Sig Max Daily Dose Days Date Category Oxycodone-Acetaminophen 5-325 (Oxycodone Hcl/Acetaminophen) 1 Each Tablet 1 Tab PO PRN Q4HRS PRN 06/30/16 Rx Latanoprost 2.5 Ml Drops 1 Drop OU QHS 06/30/16 Rx Duoneb 0.5-3(2.5) Mg/3 Ml (Albuterol/Ipratropium) 3 Ml Ampul.neb 3 Ml NEB RTQID 06/30/16 Rx Tamoxifen Citrate 20 Mg Tablet 10 Mg PO BID 04/16/16 Reported Latanoprost 2.5 Ml Drops 1 Ml OP QHS 09/23/13 Reported Triamterene-Hctz 37.5-25 Mg Cp (Triamterene/Hydrochlorothiazid) 1 Each Capsule 1 Each PO DAILY 09/23/13 Reported Aspirin Ec (Aspirin) 81 Mg Tablet.dr 81 Mg PO DAILY 09/23/13 Reported Vitamin D-3 (Cholecalciferol (Vitamin D3)) 2,000 Unit Capsule 2,000 Unit PO DAILY 09/23/[address] chest reviewed not reported yet extensive basal pneumonia L>R small portion of lung herniation RUL Impression . 1. Acute hypoxic respiratory failure secondary to underlying chronic obstructive pulmonary disease and extensive pneumonia involving the left lower lobe.and RLL 2. Underlying suspected severe chronic obstructive pulmonary disease. 3. History of lung cancer, adenocarcinoma, status post right upper lobectomy at least 10 years ago. 4. History of deep venous thrombosis around the time when the cancer was diagnosed and treated. No history of pulmonary embolism. 5. Acute kidney injury secondary to dehydration. resolved 6. Hypokalemia. resolved 7. Moderate protein-calorie malnutrition. 8. Influenza screen negative. 9. Sepsis with early shock. improved with IVF 10.STREP AND MYCOPLASMA SEROLOGY POSITIVE Plan . CONTINUE ANTIBX PER ID, HOME WHEN ON ORAL ANTIBX FOLLOW UP IN OFFICE IN NOV 13 D/C SMOKING NUTRITIONAL SUPPORT JASON MUÑOZ MD Sep 27, 2019 07:19
[2019-09-27] MEDS: BUDESONIDE 0.5 MG/2 ML NEBU. NEB SCH ×2 (07:51→19:48)
[2019-09-27 07:55] VITALS: BP 127/47
[2019-09-27] MEDS: FLUTICASONE 50MCG/NASAL SPRAY 16GM BOTTLE. NS SCH (09:30)
[2019-09-27] MEDS: POTASSIUM CHLORIDE 20 MEQ TABLET.ER. PO SCH (09:30)
[2019-09-27] MEDS: HEPARIN for SUB-Q USE 5,000 UNIT/ML VIAL. SQ SCH ×2 (09:38→21:00)
--- NOTE | 2019-09-27 09:40 | PDOC ---
PROGRESS NOTES History of Present Illness History of Present Illness Images Images CXR - 1. Left lower lobe consolidation likely pneumonia or atelectasis. Follow- up to resolution. 2. Prominent bilateral digital lung markings likely mild congestive changes. hx Pneumonia, right upper lobectomy , lung cancer, breast cancer VTE Prophylaxis Ordered VTE Prophylaxis Devices: Yes VTE Pharmacological Prophylaxi: Yes DISCHARGE DX Assessment/Plan A/P: Acute hypoxia LLL infiltrate - pneumonia. Likely gram negative given her h/o lung cancer and structural lung disease. Levaquin appropriate. Pulm consulted. extensive basal pneumonia. RUL small lung herniation likely related to lobectomy Significant bibasilar lower lobe consolidation much greater on the left. Very small pleural effusions. NAM - likely vasomotor nephropathy, started on IVF by ED Sepsis - with tachycardia, fever, empiric antibiotics and fluids given appropriately Lactic acidosis - likely related to hypoxemia, sepsis, trend. HYPOKALEMIA FEN - General diet PPX - Lovenox FULL CODE Dispo - inpatient pulm consult REPLACE K D/c dapto and azithromycin PO OMNICEF BID X 5 DAYS D/C HOME 09/27 37 min pt exam, chart review, > 50% of time spent with exam, chart review, pt care coordination Vitals Vitals Vital Signs Date Time Temp Pulse Resp B/P (MAP) Pulse Ox O2 Delivery O2 Flow Rate FiO2 09/27/19 07:56 96 Nasal Cannula 5.0 09/27/19 07:55 97.9 71 20 127/47 (73) 97.9 Physical Exam Physical Exam GENERAL: Propped up in bed, alert, appears comfortable, tired HEENT: Oral cavity, pharynx clear. NECK: Supple. LUNGS: Improved aeration HEART: S1, S2. ABDOMEN: Flat, soft, nontender, no guarding EXTREMITIES: Without clubbing, cyanosis or gross edema. SKIN: Warm to touch without signs of rash. NEUROLOGIC: Alert, appropriate. General: Alert, Oriented X3, Cooperative, No acute distress Heart: Regular rate Lungs: Wheezing Abdomen: Normal bowel sounds, Soft, No tenderness, No hepatosplenomegaly, No masses Extremities: No clubbing, No cyanosis, No edema, Normal pulses, No tenderness/swelling Skin: No rashes, No breakdown, No significant lesion Labs LABS Laboratory Tests Test 09/27/19 04:13 White Blood Count 11.9 x10^3/uL (4.0-11.0) Red Blood Count 3.31 x10^6/uL (3.50-5.40) Hemoglobin 10.2 g/dL (12.0-15.5) Hematocrit 31.0 % (36.0-47.0) Mean Corpuscular Volume 94 fL (79-100) Mean Corpuscular Hemoglobin 31 pg (25-35) Mean Corpuscular Hemoglobin Concent 33 g/dL (31-37) Red Cell Distribution Width 14.7 % (11.5-14.5) Platelet Count 215 x10^3/uL (140-400) Neutrophils (%) (Auto) 86 % (31-73) Lymphocytes (%) (Auto) 10 % (24-48) Monocytes (%) (Auto) 4 % (0-9) Eosinophils (%) (Auto) 0 % (0-3) Basophils (%) (Auto) 0 % (0-3) Neutrophils # (Auto) 10.2 x10^3/uL (1.8-7.7) Lymphocytes # (Auto) 1.2 x10^3/uL (1.0-4.8) Monocytes # (Auto) 0.5 x10^3/uL (0.0-1.1) Eosinophils # (Auto) 0.0 x10^3/uL (0.0-0.7) Basophils # (Auto) 0.0 x10^3/uL (0.0-0.2) Sodium Level 146 mmol/L (136-145) Potassium Level 3.8 mmol/L (3.5-5.1) Chloride Level 109 mmol/L (98-107) Carbon Dioxide Level 28 mmol/L (21-32) Anion Gap 9 (6-14) Blood Urea Nitrogen 20 mg/dL (7-20) Creatinine 0.7 mg/dL (0.6-1.0) Estimated GFR (Cockcroft-Gault) 97.4 BUN/Creatinine Ratio 29 (6-20) Glucose Level 86 mg/dL (70-99) Calcium Level 9.0 mg/dL (8.5-10.1) Total Bilirubin 0.6 mg/dL (0.2-1.0) Aspartate Amino Transf (AST/SGOT) 23 U/L (15-37) Alanine Aminotransferase (ALT/SGPT) 13 U/L (14-59) Alkaline Phosphatase 43 U/L (46-116) Total Protein 4.9 g/dL (6.4-8.2) Albumin 1.8 g/dL (3.4-5.0) Albumin/Globulin Ratio 0.6 (1.0-1.7) Assessment and Plan Assessmemt and Plan Problems Medical Problems: (1) Acute kidney injury Status: Acute (2) Community acquired pneumonia Status: Acute (3) Dehydration Status: Acute (4) Hypoxemia Status: Acute (5) Shortness of breath Status: Acute Comment Review of Relevant I have reviewed the following items byron (where applicable) has been applied. Labs Laboratory Tests Test 09/25/19 13:50 09/27/19 04:13 Sodium Level 143 mmol/L (136-145) 146 mmol/L (136-145) Potassium Level 3.8 mmol/L (3.5-5.1) 3.8 mmol/L (3.5-5.1) Chloride Level 107 mmol/L (98-107) 109 mmol/L (98-107) Carbon Dioxide Level 27 mmol/L (21-32) 28 mmol/L (21-32) Anion Gap 9 (6-14) 9 (6-14) Blood Urea Nitrogen 20 mg/dL (7-20) 20 mg/dL (7-20) Creatinine 0.7 mg/dL (0.6-1.0) 0.7 mg/dL (0.6-1.0) Estimated GFR (Cockcroft-Gault) 97.4 97.4 Glucose Level 99 mg/dL (70-99) 86 mg/dL (70-99) Calcium Level 9.1 mg/dL (8.5-10.1) 9.0 mg/dL (8.5-10.1) White Blood Count 11.9 x10^3/uL (4.0-11.0) Red Blood Count 3.31 x10^6/uL (3.50-5.40) Hemoglobin 10.2 g/dL (12.0-15.5) Hematocrit 31.0 % (36.0-47.0) Mean Corpuscular Volume 94 fL (79-100) Mean Corpuscular Hemoglobin 31 pg (25-35) Mean Corpuscular Hemoglobin Concent 33 g/dL (31-37) Red Cell Distribution Width 14.7 % (11.5-14.5) Platelet Count 215 x10^3/uL (140-400) Neutrophils (%) (Auto) 86 % (31-73) Lymphocytes (%) (Auto) 10 % (24-48) Monocytes (%) (Auto) 4 % (0-9) Eosinophils (%) (Auto) 0 % (0-3) Basophils (%) (Auto) 0 % (0-3) Neutrophils # (Auto) 10.2 x10^3/uL (1.8-7.7) Lymphocytes # (Auto) 1.2 x10^3/uL (1.0-4.8) Monocytes # (Auto) 0.5 x10^3/uL (0.0-1.1) Eosinophils # (Auto) 0.0 x10^3/uL (0.0-0.7) Basophils # (Auto) 0.0 x10^3/uL (0.0-0.2) BUN/Creatinine Ratio 29 (6-20) Total Bilirubin 0.6 mg/dL (0.2-1.0) Aspartate Amino Transf (AST/SGOT) 23 U/L (15-37) Alanine Aminotransferase (ALT/SGPT) 13 U/L (14-59) Alkaline Phosphatase 43 U/L (46-116) Total Protein 4.9 g/dL (6.4-8.2) Albumin 1.8 g/dL (3.4-5.0) Albumin/Globulin Ratio 0.6 (1.0-1.7) Laboratory Tests Test 09/27/19 04:13 White Blood Count 11.9 x10^3/uL (4.0-11.0) Red Blood Count 3.31 x10^6/uL (3.50-5.40) Hemoglobin 10.2 g/dL (12.0-15.5) Hematocrit 31.0 % (36.0-47.0) Mean Corpuscular Volume 94 fL (79-100) Mean Corpuscular Hemoglobin 31 pg (25-35) Mean Corpuscular Hemoglobin Concent 33 g/dL (31-37) Red Cell Distribution Width 14.7 % (11.5-14.5) Platelet Count 215 x10^3/uL (140-400) Neutrophils (%) (Auto) 86 % (31-73) Lymphocytes (%) (Auto) 10 % (24-48) Monocytes (%) (Auto) 4 % (0-9) Eosinophils (%) (Auto) 0 % (0-3) Basophils (%) (Auto) 0 % (0-3) Neutrophils # (Auto) 10.2 x10^3/uL (1.8-7.7) Lymphocytes # (Auto) 1.2 x10^3/uL (1.0-4.8) Monocytes # (Auto) 0.5 x10^3/uL (0.0-1.1) Eosinophils # (Auto) 0.0 x10^3/uL (0.0-0.7) Basophils # (Auto) 0.0 x10^3/uL (0.0-0.2) Sodium Level 146 mmol/L (136-145) Potassium Level 3.8 mmol/L (3.5-5.1) Chloride Level 109 mmol/L (98-107) Carbon Dioxide Level 28 mmol/L (21-32) Anion Gap 9 (6-14) Blood Urea Nitrogen 20 mg/dL (7-20) Creatinine 0.7 mg/dL (0.6-1.0) Estimated GFR (Cockcroft-Gault) 97.4 BUN/Creatinine Ratio 29 (6-20) Glucose Level 86 mg/dL (70-99) Calcium Level 9.0 mg/dL (8.5-10.1) Total Bilirubin 0.6 mg/dL (0.2-1.0) Aspartate Amino Transf (AST/SGOT) 23 U/L (15-37) Alanine Aminotransferase (ALT/SGPT) 13 U/L (14-59) Alkaline Phosphatase 43 U/L (46-116) Total Protein 4.9 g/dL (6.4-8.2) Albumin 1.8 g/dL (3.4-5.0) Albumin/Globulin Ratio 0.6 (1.0-1.7) Microbiology 09/22/19 Blood Culture - Final, Complete NO GROWTH AFTER 5 DAYS Medications Current Medications Albuterol/ Ipratropium (Duoneb) 3 ml 1X ONCE NEB Last administered on 09/22/19at 05:49; Start 09/22/19 at 05:45; Stop 09/22/19 at 05:50; Status DC Levofloxacin/ Dextrose 150 ml @ 100 mls/hr 1X ONCE IV Last administered on 09/22/19at 07:21; Start 09/22/19 at 07:00; Stop 09/22/19 at 08:29; Status DC Sodium Chloride 1,000 ml @ 250 mls/hr 1X ONCE IV Last administered on 09/22/19at 07:22; Start 09/22/19 at 07:00; Stop 09/22/19 at 10:59; Status DC Acetaminophen (Tylenol) 1,000 mg 1X ONCE PO Last administered on 09/22/19at 07:21; Start 09/22/19 at 07:00; Stop 09/22/19 at 07:01; Status DC Sodium Chloride 1,000 ml @ 125 mls/hr Q8H IV Last administered on 09/23/19at 00:16; Start 09/22/19 at 08:03; Stop 09/23/19 at 08:02; Status DC Acetaminophen (Tylenol) 650 mg PRN Q4HRS PRN PO FEVER Last administered on 09/22/19at 22:46; Start 09/22/19 at 08:15; Stop 09/23/19 at 08:14; Status DC Albuterol/ Ipratropium (Duoneb) 3 ml RTQID NEB Last administered on 09/23/19at 07:03; Start 09/22/19 at 12:00; Stop 09/23/19 at 11:59; Status DC Sodium Chloride 1,000 ml @ 1,000 mls/hr 1X ONCE IV Last administered on 09/22/19at 08:55; Start 09/22/19 at 09:00; Stop 09/22/19 at 09:59; Status DC Albumin Human 500 ml @ 125 mls/hr 1X ONCE IV Last administered on 09/22/19at 09:33; Start 09/22/19 at 09:30; Stop 09/22/19 at 13:29; Status DC Sodium Chloride 250 ml @ 250 mls/hr 1X ONCE IV Last administered on 09/22/19at 10:56; Start 09/22/19 at 10:45; Stop 09/22/19 at 11:44; Status DC Influenza Virus Vaccine Quadrival (Afluria Quad 2019-20 (3yr Up) Syringe) 0.5 ml ONCE ONCE VAX IM ; Start 09/23/19 at 09:00; Stop 09/23/19 at 09:01; Status DC Levofloxacin/ Dextrose (Levaquin Per Pharmacy) 1 each PRN DAILY PRN MC SEE COMMENTS; Start 09/22/19 at 12:15; Stop 09/22/19 at 15:06; Status DC Levofloxacin/ Dextrose 150 ml @ 100 mls/hr Q48H IV ; Start 09/24/19 at 06:00; Stop 09/22/19 at 15:06; Status DC Meropenem 500 mg/ Sodium Chloride 50 ml @ 100 mls/hr Q6HRS IV Last administered on 09/27/19at 05:44; Start 09/22/19 at 18:00 Daptomycin 430 mg/ Sodium Chloride 50 ml @ 100 mls/hr Q48H IV Last administered on 09/22/19at 16:13; Start 09/22/19 at 15:00; Stop 09/23/19 at 08:50; Status DC Linezolid (Zyvox) 600 mg BID PO Last administered on 09/26/19at 08:32; Start 1 11/23/18 at 21:00; Stop 09/26/19 at 12:12; Status DC Doxycycline Hyclate (Vibra-Tab) 100 mg BID PO ; Start 09/23/19 at 09:00; Stop 09/23/19 at 08:50; Status DC Heparin Sodium (Porcine) (Heparin Sodium) 5,000 unit BID SQ Last administered on 09/27/19at 09:38; Start 09/22/19 at 16:00 Daptomycin 430 mg/ Sodium Chloride 50 ml @ 100 mls/hr Q24H IV Last administered on 09/24/19at 15:50; Start 09/23/19 at 15:00; Stop 09/25/19 at 13:09; Status DC Azithromycin (Zithromax) 500 mg DAILY PO Last administered on 09/25/19at 08:11; Start 09/23/19 at 09:00; Stop 09/25/19 at 13:09; Status DC Albuterol/ Ipratropium (Duoneb) 3 ml RTQID NEB Last administered on 09/25/19at 07:49; Start 09/23/19 at 17:00; Stop 09/25/19 at 09:21; Status DC Fluticasone Propionate (Flonase) 2 spray DAILY NS Last administered on 09/27/19at 09:30; Start 09/24/19 at 10:00 Potassium Chloride (Klor-Con) 40 meq 1X ONCE PO Last administered on 09/24/19at 11:23; Start 09/24/19 at 11:00; Stop 09/24/19 at 11:01; Status DC Potassium Chloride (Klor-Con) 20 meq [id number] PO Last administered on 09/27/19at 09:30; Start 09/25/19 at 08:00 Albuterol/ Ipratropium (Duoneb) 3 ml Q4HRS NEB Last administered on 09/27/19at 07:51; Start 09/25/19 at 12:00 Budesonide (Pulmicort) 0.5 mg RTBID NEB Last administered on 09/27/19at 07:51; Start 09/25/19 at 20:00 Acetaminophen (Tylenol) 650 mg PRN Q6HRS PRN PO PAIN Last administered on 09/27/19at 05:44; Start 09/25/19 at 17:45 Guaifenesin (Robitussin Dm) 10 ml PRN Q6HRS PRN PO COUGH; Start 09/25/19 at 17:45; Status Cancel Guaifenesin (Robitussin) 200 mg PRN Q6HRS PRN PO COUGH Last administered on 09/26/19at 17:49; Start 09/25/19 at 18:00 Active Scripts Active Oxycodone-Acetaminophen 5-325 (Oxycodone Hcl/Acetaminophen) 1 Each Tablet 1 Tab PO PRN Q4HRS PRN Latanoprost 2.5 Ml Drops 1 Drop OU QHS Duoneb 0.5-3(2.5) Mg/3 Ml (Albuterol/Ipratropium) 3 Ml Ampul.neb 3 Ml NEB RTQID Reported Tamoxifen Citrate 20 Mg Tablet 10 Mg PO BID Latanoprost 2.5 Ml Drops 1 Ml OP QHS Triamterene-Hctz 37.5-25 Mg Cp (Triamterene/Hydrochlorothiazid) 1 Each Capsule 1 Each PO DAILY Aspirin Ec (Aspirin) 81 Mg Tablet.dr 81 Mg PO DAILY Vitamin D-3 (Cholecalciferol (Vitamin D3)) 2,000 Unit Capsule 2,000 Unit PO DAILY Vitals/I & O Vital Sign - Last 24 Hours 09/26/19 09/26/19 09/26/19 09/26/19 11:39 11:45 11:47 14:33 Temp 98.6 99.5 98.6 99.5 Pulse 113 120 Resp 26 26 B/P (MAP) 168/75 (106) 156/69 (98) 139/66 (90) Pulse Ox 95 91 92 O2 Delivery Nasal Cannula Nasal Cannula Nasal Cannula O2 Flow Rate 5.0 5.0 5.0 09/26/19 09/26/19 09/26/19 09/26/19 19:06 19:16 20:00 23:10 Temp 97.3 98.2 97.3 98.2 Pulse 109 94 Resp 18 18 B/P (MAP) 116/53 (74) 112/57 (75) Pulse Ox 96 95 98 O2 Delivery Nasal Cannula Nasal Cannula Nasal Cannula Nasal Cannula O2 Flow Rate 5.0 5.0 5.0 5.0 09/27/19 09/27/19 09/27/19 09/27/19 00:11 03:22 03:52 07:54 Temp 98.0 98.0 Pulse 110 Resp 22 B/P (MAP) 149/63 (91) Pulse Ox 92 96 O2 Delivery Nasal Cannula Nasal Cannula Nasal Cannula Nasal Cannula O2 Flow Rate 5.0 5.0 5.0 5.0 09/27/19 09/27/19 07:55 07:56 Temp 97.9 97.9 Pulse 71 Resp 20 B/P (MAP) 127/47 (73) Pulse Ox 92 96 O2 Delivery Nasal Cannula Nasal Cannula O2 Flow Rate 5.0 5.0 Intake and Output 09/26/19 09/26/19 09/27/19 15:00 23:00 07:00 Intake Total 100 ml 240 ml 50 ml Output Total 0 ml 300 ml 400 ml Balance 100 ml -60 ml -350 ml Nutrition Consultation Dietary Evaluation: Recommendations by RD: Dietary education by RD, Increase Calorie Intake, Protein supplementation Comments: boost supplements from home Expected Outcomes/Goals: to meet >75% est nutr needs via meals and supplements. Malnutrition Findings: Food and Nutrition Intake (Mod: <75% est energy req 7days Weight Status: Appropriate CARLOS EDUARDO SANTIAGO MD Sep 27, 2019 09:40
--- NOTE | 2019-09-27 10:25 | NUR ---
Spoke with Breonna Laws about the duration of time patient needs to be droplet precautions for + mycoplasma. She stated that it is needed for the duration of the illness, therefore, if the patient is able to cough into a tissue and dispose of it then she can come out of isolation. Notified Dr. Gustavo Gray, he stated it was okay with him to take her out of isolation. Spoke with the patient about this. She verbalized understating of having to cough into napkin and dispose of it into a trash bin. Will continue to monitor.
--- NOTE | 2019-09-27 10:27 | PDOC ---
Infectious Disease Note Subjective Subjective feeling better, breathing better, poor intake ROS ROS no n/v/d/sob/fever Vital Sign Vital Signs Vital Signs Date Time Temp Pulse Resp B/P (MAP) Pulse Ox O2 Delivery O2 Flow Rate FiO2 09/27/19 08:00 Nasal Cannula 5.0 09/27/19 07:56 96 09/27/19 07:55 97.9 71 20 127/47 (73) 97.9 Physical Exam PHYSICAL EXAM GENERAL: Propped up in bed, alert, appears comfortable, tired HEENT: Oral cavity, pharynx clear. NECK: Supple. LUNGS: Improved aeration HEART: S1, S2. ABDOMEN: Flat, soft, nontender, no guarding EXTREMITIES: Without clubbing, cyanosis or gross edema. SKIN: Warm to touch without signs of rash. NEUROLOGIC: Alert, appropriate. Labs Lab Laboratory Tests Test 09/27/19 04:13 White Blood Count 11.9 x10^3/uL (4.0-11.0) Red Blood Count 3.31 x10^6/uL (3.50-5.40) Hemoglobin 10.2 g/dL (12.0-15.5) Hematocrit 31.0 % (36.0-47.0) Mean Corpuscular Volume 94 fL (79-100) Mean Corpuscular Hemoglobin 31 pg (25-35) Mean Corpuscular Hemoglobin Concent 33 g/dL (31-37) Red Cell Distribution Width 14.7 % (11.5-14.5) Platelet Count 215 x10^3/uL (140-400) Neutrophils (%) (Auto) 86 % (31-73) Lymphocytes (%) (Auto) 10 % (24-48) Monocytes (%) (Auto) 4 % (0-9) Eosinophils (%) (Auto) 0 % (0-3) Basophils (%) (Auto) 0 % (0-3) Neutrophils # (Auto) 10.2 x10^3/uL (1.8-7.7) Lymphocytes # (Auto) 1.2 x10^3/uL (1.0-4.8) Monocytes # (Auto) 0.5 x10^3/uL (0.0-1.1) Eosinophils # (Auto) 0.0 x10^3/uL (0.0-0.7) Basophils # (Auto) 0.0 x10^3/uL (0.0-0.2) Sodium Level 146 mmol/L (136-145) Potassium Level 3.8 mmol/L (3.5-5.1) Chloride Level 109 mmol/L (98-107) Carbon Dioxide Level 28 mmol/L (21-32) Anion Gap 9 (6-14) Blood Urea Nitrogen 20 mg/dL (7-20) Creatinine 0.7 mg/dL (0.6-1.0) Estimated GFR (Cockcroft-Gault) 97.4 BUN/Creatinine Ratio 29 (6-20) Glucose Level 86 mg/dL (70-99) Calcium Level 9.0 mg/dL (8.5-10.1) Total Bilirubin 0.6 mg/dL (0.2-1.0) Aspartate Amino Transf (AST/SGOT) 23 U/L (15-37) Alanine Aminotransferase (ALT/SGPT) 13 U/L (14-59) Alkaline Phosphatase 43 U/L (46-116) Total Protein 4.9 g/dL (6.4-8.2) Albumin 1.8 g/dL (3.4-5.0) Albumin/Globulin Ratio 0.6 (1.0-1.7) Micro Microbiology 09/22/19 Blood Culture - Preliminary, Resulted NO GROWTH AFTER 4 DAYS Objective Assessment Sepsis - POA 09/22 - improved Mycoplasma + PCN allergy - rash -uncertain if ever had Amox/Augmentin/Cephalexin - etc. Bandemia LL pneumonia - better NAM - better H/o lung CA 2019 s/p lobectomy and chemo Tobacco abuse Strep pneumo antigen + Plan Plan of Care po omnicef for 5 more days BC neg so far ERICA HOWARD MD Sep 27, 2019 10:27
--- NOTE | 2019-09-27 11:06 | NUR ---
IP: Pt now has a dry cough. Discussed with nurse on teaching pt respiratory hygiene. Nurse, Facundo, instructed pt on coughing into a tissue with proper disposal of that tissue. Pt verbalized understanding. Precautions may be discontinued as long as pt is compliant.
--- NOTE | 2019-09-27 11:19 | PDOC3 ---
Discharge Summary Date of Admission: Sep 22, 2019 Date of Discharge: Sep 27, 2019 Follow-Up: 3-5 days Admitting Diagnosis comment: DISCHARGE DX Assessment/Plan A/P: Acute hypoxia LLL infiltrate - pneumonia. Likely gram negative given her h/o lung cancer and structural lung disease. Levaquin appropriate. Pulm consulted. extensive basal pneumonia. RUL small lung herniation likely related to lobectomy Significant bibasilar lower lobe consolidation much greater on the left. Very small pleural effusions. NAM - likely vasomotor nephropathy, started on IVF by ED Sepsis - with tachycardia, fever, empiric antibiotics and fluids given appropriately Lactic acidosis - likely related to hypoxemia, sepsis, trend. HYPOKALEMIA FEN - General diet PPX - Lovenox FULL CODE Dispo - inpatient pulm consult REPLACE K D/c dapto and azithromycin PO OMNICEF BID X 5 DAYS D/C HOME 09/27 37 min pt exam, chart review D./C PLANNING TIME, > 50% of time spent with exam, chart review, pt care coordination Vitals Vitals Vital Signs Date Time Temp Pulse Resp B/P (MAP) Pulse Ox O2 Delivery O2 Flow Rate FiO2 09/27/19 07:56 96 Nasal Cannula 5.0 09/27/19 07:55 97.9 71 20 127/47 (73) 97.9 Physical Exam Physical Exam GENERAL: Propped up in bed, alert, appears comfortable, tired HEENT: Oral cavity, pharynx clear. NECK: Supple. LUNGS: Improved aeration HEART: S1, S2. ABDOMEN: Flat, soft, nontender, no guarding EXTREMITIES: Without clubbing, cyanosis or gross edema. SKIN: Warm to touch without signs of rash. NEUROLOGIC: Alert, appropriate. General: Alert, Oriented X3, Cooperative, No acute distress Heart: Regular rate Lungs: Wheezing Abdomen: Normal bowel sounds, Soft, No tenderness, No hepatosplenomegaly, No masses Extremities: No clubbing, No cyanosis, No edema, Normal pulses, No tenderness/s welling Skin: No rashes, No breakdown, No significant lesion FINAL DIAGNOSIS Problems Medical Problems: (1) Acute kidney injury Status: Acute (2) Community acquired pneumonia Status: Acute (3) Dehydration Status: Acute (4) Hypoxemia Status: Acute (5) Shortness of breath Status: Acute Brief Hospital Course Ms. Steele is a 79 old [sex] who presented with [PNEUMONIA ] CONDITION AT DISCHARGE: Improved Discharge Medications Current Medications Albuterol/ Ipratropium (Duoneb) 3 ml 1X ONCE NEB Last administered on 1 11/23/18at 05:49; Start 09/22/19 at 05:45; Stop 09/22/19 at 05:50; Status DC Levofloxacin/ Dextrose 150 ml @ 100 mls/hr 1X ONCE IV Last administered on 09/22/19at 07:21; Start 09/22/19 at 07:00; Stop 09/22/19 at 08:29; Status DC Sodium Chloride 1,000 ml @ 250 mls/hr 1X ONCE IV Last administered on 09/22/19at 07:22; Start 09/22/19 at 07:00; Stop 09/22/19 at 10:59; Status DC Acetaminophen (Tylenol) 1,000 mg 1X ONCE PO Last administered on 09/22/19at 07:21; Start 09/22/19 at 07:00; Stop 09/22/19 at 07:01; Status DC Sodium Chloride 1,000 ml @ 125 mls/hr Q8H IV Last administered on 09/23/19at 00:16; Start 09/22/19 at 08:03; Stop 09/23/19 at 08:02; Status DC Acetaminophen (Tylenol) 650 mg PRN Q4HRS PRN PO FEVER Last administered on 09/22/19at 22:46; Start 09/22/19 at 08:15; Stop 09/23/19 at 08:14; Status DC Albuterol/ Ipratropium (Duoneb) 3 ml RTQID NEB Last administered on 09/23/19at 07:03; Start 09/22/19 at 12:00; Stop 09/23/19 at 11:59; Status DC Sodium Chloride 1,000 ml @ 1,000 mls/hr 1X ONCE IV Last administered on 09/22/19at 08:55; Start 09/22/19 at 09:00; Stop 09/22/19 at 09:59; Status DC Albumin Human 500 ml @ 125 mls/hr 1X ONCE IV Last administered on 09/22/19at 09:33; Start 09/22/19 at 09:30; Stop 09/22/19 at 13:29; Status DC Sodium Chloride 250 ml @ 250 mls/hr 1X ONCE IV Last administered on 09/22/19at 10:56; Start 09/22/19 at 10:45; Stop 09/22/19 at 11:44; Status DC Influenza Virus Vaccine Quadrival (Afluria Quad 2019-20 (3yr Up) Syringe) 0.5 ml ONCE ONCE VAX IM ; Start 09/23/19 at 09:00; Stop 09/23/19 at 09:01; Status DC Levofloxacin/ Dextrose (Levaquin Per Pharmacy) 1 each PRN DAILY PRN MC SEE COMMENTS; Start 09/22/19 at 12:15; Stop 09/22/19 at 15:06; Status DC Levofloxacin/ Dextrose 150 ml @ 100 mls/hr Q48H IV ; Start 09/24/19 at 06:00; Stop 09/22/19 at 15:06; Status DC Meropenem 500 mg/ Sodium Chloride 50 ml @ 100 mls/hr Q6HRS IV Last administered on 09/27/19at 05:44; Start 09/22/19 at 18:00; Stop 09/27/19 at 10:24; Status DC Daptomycin 430 mg/ Sodium Chloride 50 ml @ 100 mls/hr Q48H IV Last administered on 09/22/19at 16:13; Start 09/22/19 at 15:00; Stop 09/23/19 at 08:50; Status DC Linezolid (Zyvox) 600 mg BID PO Last administered on 09/26/19at 08:32; Start 09/22/19 at 21:00; Stop 09/26/19 at 12:12; Status DC Doxycycline Hyclate (Vibra-Tab) 100 mg BID PO ; Start 09/23/19 at 09:00; Stop 09/23/19 at 08:50; Status DC Heparin Sodium (Porcine) (Heparin Sodium) 5,000 unit BID SQ Last administered on 09/27/19at 09:38; Start 09/22/19 at 16:00 Daptomycin 430 mg/ Sodium Chloride 50 ml @ 100 mls/hr Q24H IV Last administered on 09/24/19at 15:50; Start 09/23/19 at 15:00; Stop 09/25/19 at 13:09; Status DC Azithromycin (Zithromax) 500 mg DAILY PO Last administered on 09/25/19at 08:11; Start 09/23/19 at 09:00; Stop 09/25/19 at 13:09; Status DC Albuterol/ Ipratropium (Duoneb) 3 ml RTQID NEB Last administered on 09/25/19at 07:49; Start 09/23/19 at 17:00; Stop 09/25/19 at 09:21; Status DC Fluticasone Propionate (Flonase) 2 spray DAILY NS Last administered on 09/27/19at 09:30; Start 09/24/19 at 10:00 Potassium Chloride (Klor-Con) 40 meq 1X ONCE PO Last administered on 09/24/19at 11:23; Start 09/24/19 at 11:00; Stop 09/24/19 at 11:01; Status DC Potassium Chloride (Klor-Con) 20 meq DAILYWBKFT PO Last administered on 09/27/19at 09:30; Start 09/25/19 at 08:00 Albuterol/ Ipratropium (Duoneb) 3 ml Q4HRS NEB Last administered on 09/27/19at 07:51; Start 09/25/19 at 12:00 Budesonide (Pulmicort) 0.5 mg RTBID NEB Last administered on 09/27/19at 07:51; Start 09/25/19 at 20:00 Acetaminophen (Tylenol) 650 mg PRN Q6HRS PRN PO PAIN Last administered on 09/27/19at 05:44; Start 09/25/19 at 17:45 Guaifenesin (Robitussin Dm) 10 ml PRN Q6HRS PRN PO COUGH; Start 09/25/19 at 17:45; Status Cancel Guaifenesin (Robitussin) 200 mg PRN Q6HRS PRN PO COUGH Last administered on 09/26/19at 17:49; Start 09/25/19 at 18:00 Cefdinir (Omnicef) 300 mg BID PO ; Start 09/27/19 at 21:00 Active Scripts Active Oxycodone-Acetaminophen 5-325 (Oxycodone Hcl/Acetaminophen) 1 Each Tablet 1 Tab PO PRN Q4HRS PRN Latanoprost 2.5 Ml Drops 1 Drop OU QHS Duoneb 0.5-3(2.5) Mg/3 Ml (Albuterol/Ipratropium) 3 Ml Ampul.neb 3 Ml NEB RTQID Reported Tamoxifen Citrate 20 Mg Tablet 10 Mg PO BID Latanoprost 2.5 Ml Drops 1 Ml OP QHS Triamterene-Hctz 37.5-25 Mg Cp (Triamterene/Hydrochlorothiazid) 1 Each Capsule 1 Each PO DAILY Aspirin Ec (Aspirin) 81 Mg Tablet.dr 81 Mg PO DAILY Vitamin D-3 (Cholecalciferol (Vitamin D3)) 2,000 Unit Capsule 2,000 Unit PO DAILY Vital Signs Vital Signs Date Time Temp Pulse Resp B/P (MAP) Pulse Ox O2 Delivery O2 Flow Rate FiO2 09/27/19 08:00 Nasal Cannula 5.0 09/27/19 07:56 96 09/27/19 07:55 97.9 71 20 127/47 (73) 97.9 Labs Laboratory Tests Test 09/25/19 13:50 09/27/19 04:13 Sodium Level 143 mmol/L (136-145) 146 mmol/L (136-145) Potassium Level 3.8 mmol/L (3.5-5.1) 3.8 mmol/L (3.5-5.1) Chloride Level 107 mmol/L (98-107) 109 mmol/L (98-107) Carbon Dioxide Level 27 mmol/L (21-32) 28 mmol/L (21-32) Anion Gap 9 (6-14) 9 (6-14) Blood Urea Nitrogen 20 mg/dL (7-20) 20 mg/dL (7-20) Creatinine 0.7 mg/dL (0.6-1.0) 0.7 mg/dL (0.6-1.0) Estimated GFR (Cockcroft-Gault) 97.4 97.4 Glucose Level 99 mg/dL (70-99) 86 mg/dL (70-99) Calcium Level 9.1 mg/dL (8.5-10.1) 9.0 mg/dL (8.5-10.1) White Blood Count 11.9 x10^3/uL (4.0-11.0) Red Blood Count 3.31 x10^6/uL (3.50-5.40) Hemoglobin 10.2 g/dL (12.0-15.5) Hematocrit 31.0 % (36.0-47.0) Mean Corpuscular Volume 94 fL (79-100) Mean Corpuscular Hemoglobin 31 pg (25-35) Mean Corpuscular Hemoglobin Concent 33 g/dL (31-37) Red Cell Distribution Width 14.7 % (11.5-14.5) Platelet Count 215 x10^3/uL (140-400) Neutrophils (%) (Auto) 86 % (31-73) Lymphocytes (%) (Auto) 10 % (24-48) Monocytes (%) (Auto) 4 % (0-9) Eosinophils (%) (Auto) 0 % (0-3) Basophils (%) (Auto) 0 % (0-3) Neutrophils # (Auto) 10.2 x10^3/uL (1.8-7.7) Lymphocytes # (Auto) 1.2 x10^3/uL (1.0-4.8) Monocytes # (Auto) 0.5 x10^3/uL (0.0-1.1) Eosinophils # (Auto) 0.0 x10^3/uL (0.0-0.7) Basophils # (Auto) 0.0 x10^3/uL (0.0-0.2) BUN/Creatinine Ratio 29 (6-20) Total Bilirubin 0.6 mg/dL (0.2-1.0) Aspartate Amino Transf (AST/SGOT) 23 U/L (15-37) Alanine Aminotransferase (ALT/SGPT) 13 U/L (14-59) Alkaline Phosphatase 43 U/L (46-116) Total Protein 4.9 g/dL (6.4-8.2) Albumin 1.8 g/dL (3.4-5.0) Albumin/Globulin Ratio 0.6 (1.0-1.7) Laboratory Tests Test 09/27/19 04:13 White Blood Count 11.9 x10^3/uL (4.0-11.0) Red Blood Count 3.31 x10^6/uL (3.50-5.40) Hemoglobin 10.2 g/dL (12.0-15.5) Hematocrit 31.0 % (36.0-47.0) Mean Corpuscular Volume 94 fL (79-100) Mean Corpuscular Hemoglobin 31 pg (25-35) Mean Corpuscular Hemoglobin Concent 33 g/dL (31-37) Red Cell Distribution Width 14.7 % (11.5-14.5) Platelet Count 215 x10^3/uL (140-400) Neutrophils (%) (Auto) 86 % (31-73) Lymphocytes (%) (Auto) 10 % (24-48) Monocytes (%) (Auto) 4 % (0-9) Eosinophils (%) (Auto) 0 % (0-3) Basophils (%) (Auto) 0 % (0-3) Neutrophils # (Auto) 10.2 x10^3/uL (1.8-7.7) Lymphocytes # (Auto) 1.2 x10^3/uL (1.0-4.8) Monocytes # (Auto) 0.5 x10^3/uL (0.0-1.1) Eosinophils # (Auto) 0.0 x10^3/uL (0.0-0.7) Basophils # (Auto) 0.0 x10^3/uL (0.0-0.2) Sodium Level 146 mmol/L (136-145) Potassium Level 3.8 mmol/L (3.5-5.1) Chloride Level 109 mmol/L (98-107) Carbon Dioxide Level 28 mmol/L (21-32) Anion Gap 9 (6-14) Blood Urea Nitrogen 20 mg/dL (7-20) Creatinine 0.7 mg/dL (0.6-1.0) Estimated GFR (Cockcroft-Gault) 97.4 BUN/Creatinine Ratio 29 (6-20) Glucose Level 86 mg/dL (70-99) Calcium Level 9.0 mg/dL (8.5-10.1) Total Bilirubin 0.6 mg/dL (0.2-1.0) Aspartate Amino Transf (AST/SGOT) 23 U/L (15-37) Alanine Aminotransferase (ALT/SGPT) 13 U/L (14-59) Alkaline Phosphatase 43 U/L (46-116) Total Protein 4.9 g/dL (6.4-8.2) Albumin 1.8 g/dL (3.4-5.0) Albumin/Globulin Ratio 0.6 (1.0-1.7) Allergies Allergies Coded Allergies Type Severity Reaction Last Updated Verified Penicillins Allergy Intermediate Rash 06/17/16 Yes Disposition/Orders: Other (D/C TO SNF) CARLOS EDUARDO SANTIAGO MD Sep 27, 2019 11:19
[2019-09-27 11:33] VITALS: BP 142/58
[2019-09-27] MEDS ORDERED: POTA20TA4 PO (11:39)
[2019-09-27] MEDS ORDERED: BUDE0.5A NEB (11:39)
[2019-09-27] MEDS ORDERED: FLUT16SP NS (11:39)
[2019-09-27] MEDS ORDERED: ACET325T9 PO (11:39)
[2019-09-27] MEDS ORDERED: GUAI100L12 PO (11:39)
[2019-09-27] MEDS ORDERED: CEFD300C PO (11:39)
--- NOTE | 2019-09-27 11:41 | SNU/HH DC ---
DISCHARGE WITH HOME HEALTH DISCHARGE INFORMATION: Final Diagnosis: Problems Medical Problems: (1) Acute kidney injury Status: Acute (2) Community acquired pneumonia Status: Acute (3) Dehydration Status: Acute (4) Hypoxemia Status: Acute (5) Shortness of breath Status: Acute Condition on Discharge: Stable CODE STATUS: Code Status: Full HOME HEALTH: Face to Face: I certify this patient is under my care and that I, or a nurse practitioner or physician's medical services assistant working with me, had a face to face encounter that meets the physician face to face encounter requirements with this patient on []. Medical Complications: COPD RN For Eval/Treatment: Yes Physical Therapy For: Evalulation/Treatment Occupational Therapy For: Evaluation/Treatment Speech Language Pathology For: Evaluation/Treatment Home Health Aide For: Self-care POLISHER BALANCE SCREWHEAD For: Community Resources Pt Meets Homebound Status: Fatigue w/ amb. POST DISCHARGE ORDERS: Activity Instructions for Disc: Activity as tolerated, Progressive ambulation Weight Bearing Status after Di: Full weight bearing Bathing Instructions: Shower-keep dressing dry DIET AFTER DISCHARGE: Regular Wound/Incision Care: May get incision wet, No wound care needed TREATMENT/EQUIPMENT ORDERS: Adaptive Equipment Issued: None Discharge Respiratory Equipmen: Oxygen, Nebulizer CERTIFICATION STATEMENT: Certification Statement: Certification Statement: Based on the above finding, I certify that this patient is confined to the home and needs intermittent longterm care, physical therapy and/or speech therapy, or continues to need occupational therapy.~ This patient is under my care, and I have initiated the establishment of the plan of care.~ This patient will be followed by myself or a community physician who will periodically review the plan of care. Home Meds Active Scripts Fluticasone Propionate (FLUTICASONE PROPIONATE NASAL SPRAY) 16 Gm [place].susp, 2 SPRAY NS DAILY for NASAL CONGESTION for 30 Days, #1 SPRAY Prov:CARLOS EDUARDO SANTIAGO MD 09/27/19 Guaifenesin (GUAIFENESIN) 100 Mg/5 Ml Liquid, 200 MG PO PRN Q6HRS PRN for COUGH for 10 Days, #120 LIQUID Prov:CARLOS EDUARDO SANTIAGO MD 09/27/19 Budesonide (BUDESONIDE) 0.5 Mg/2 Ml Ampul.neb, 0.5 MG NEB RTBID for COPD for 30 Days, #60 EACH Prov:CARLOS EDUARDO SANTIAGO MD 09/27/19 Potassium Chloride (KLOR-CON M20) 20 Meq Tab.er.prt, 20 MEQ PO DAILYWBKFT for SUPPLEMENT for 10 Days, #10 TAB.SR Prov:CARLOS EDUARDO SANTIAGO MD 09/27/19 Acetaminophen (TYLENOL) 325 Mg Tablet, 650 MG PO PRN Q6HRS PRN for PAIN for 10 Days, #30 TAB Prov:CARLOS EDUARDO SANTIAGO MD 09/27/19 Cefdinir (CEFDINIR) 300 Mg Capsule, 300 MG PO BID for PNEUMONIA for 7 Days, #14 CAP Prov:CARLOS EDUARDO SANTIAGO MD 09/27/19 Latanoprost (LATANOPROST) 2.5 Ml Drops, 1 DROP OU QHS, #5 BOTTLE 0 Refills Prov:KAVYA GOYAL APRN 06/30/16 Ipratropium/Albuterol Sulfate (DUONEB 0.5-3(2.5) MG/3 ML) 3 Ml Ampul.neb, 3 ML NEB RTQID, #30 0 Refills Prov:KAVYA GOYAL APRN 06/30/16 Reported Medications Tamoxifen Citrate (TAMOXIFEN CITRATE) 20 Mg Tablet, 10 MG PO BID 04/16/16 Triamterene/Hydrochlorothiazid (TRIAMTERENE-HCTZ 37.5-25 MG CP) 1 Each Capsule, 1 EACH PO DAILY 09/23/13 Aspirin (ASPIRIN EC) 81 Mg Tablet.dr, 81 MG PO DAILY 09/23/13 Cholecalciferol (Vitamin D3) (VITAMIN D-3) 2,000 Unit Capsule, 2000 UNIT PO DAILY 09/23/13 Discontinued Reported Medications Latanoprost (LATANOPROST) 2.5 Ml Drops, 1 ML OP QHS 09/23/13 Discontinued Scripts Oxycodone Hcl/Acetaminophen (OXYCODONE-ACETAMINOPHEN 5-325) 1 Each Tablet, 1 TAB PO PRN Q4HRS PRN for MODERATE PAIN, #30 TAB 0 Refills Prov:KAVYA GOYAL APRN 06/30/16 CARLOS EDUARDO SANTIAGO MD Sep 27, 2019 11:41
--- NOTE | 2019-09-27 11:52 | SNU/HH DC ---
DISCHARGE ORDERS DISCHARGE INFORMATION: FINAL DIAGNOSIS Problems Medical Problems: (1) Acute kidney injury Status: Acute (2) Community acquired pneumonia Status: Acute (3) Dehydration Status: Acute (4) Hypoxemia Status: Acute (5) Shortness of breath Status: Acute CONDITION ON DISCHARGE: Stable CODE STATUS: Code Status: Full USP: SNF STAY <30 DAYS: Yes HOSPICE: HOSPICE: No HOSPICE EVAL & TREAT: No LTAC: ADMIT TO LTAC: No POST DISCHARGE ORDERS: ACTIVITY ORDERS: Activity as tolerated, Progressive ambulation WEIGHT BEARING STATUS: Full weight bearing BATHING ORDERS: Shower-keep dressing dry DIET AFTER DISCHARGE: Regular WOUND/INCISION CARE: May get incision wet, No wound care needed TREATMENT/EQUIPMENT ORDERS: ADAPTIVE EQUIPMENT NEEDED: None, Front wheeled walker RESPIRATORY EQUIPMENT NEEDED: Oxygen, Nebulizer Physical Therapy For: Evalulation/Treatment Occupational Therapy For: Evaluation/Treatment Speech Language Pathology For: Evaluation/Treatment DISCHARGE MEDICATIONS: Home Meds Active Scripts Fluticasone Propionate (FLUTICASONE PROPIONATE NASAL SPRAY) 16 Gm [place].susp, 2 SPRAY NS DAILY for NASAL CONGESTION for 30 Days, #1 SPRAY Prov:CARLOS EDUARDO SANTIAGO MD 09/27/19 Guaifenesin (GUAIFENESIN) 100 Mg/5 Ml Liquid, 200 MG PO PRN Q6HRS PRN for COUGH for 10 Days, #120 LIQUID Prov:CARLOS EDUARDO SANTIAGO MD 09/27/19 Budesonide (BUDESONIDE) 0.5 Mg/2 Ml Ampul.neb, 0.5 MG NEB RTBID for COPD for 30 Days, #60 EACH Prov:CARLOS EDUARDO SANTIAGO MD 09/27/19 Potassium Chloride (KLOR-CON M20) 20 Meq Tab.er.prt, 20 MEQ PO DAILYWBKFT for SUPPLEMENT for 10 Days, #10 TAB.SR Prov:CARLOS EDUARDO SANTIAGO MD 09/27/19 Acetaminophen (TYLENOL) 325 Mg Tablet, 650 MG PO PRN Q6HRS PRN for PAIN for 10 Days, #30 TAB Prov:CARLOS EDUARDO SANTIAGO MD 09/27/19 Cefdinir (CEFDINIR) 300 Mg Capsule, 300 MG PO BID for PNEUMONIA for 7 Days, #14 CAP Prov:CARLOS EDUARDO SANTIAGO MD 09/27/19 Latanoprost (LATANOPROST) 2.5 Ml Drops, 1 DROP OU QHS, #5 BOTTLE 0 Refills Prov:KAVYA GOYAL MANAGER BIOSTATISTICS 06/30/16 Ipratropium/Albuterol Sulfate (DUONEB 0.5-3(2.5) MG/3 ML) 3 Ml Ampul.neb, 3 ML NEB RTQID, #30 0 Refills Prov:KAVYA GOYAL MANAGER BIOSTATISTICS 06/30/16 Reported Medications Tamoxifen Citrate (TAMOXIFEN CITRATE) 20 Mg Tablet, 10 MG PO BID 04/16/16 Triamterene/Hydrochlorothiazid (TRIAMTERENE-HCTZ 37.5-25 MG CP) 1 Each Capsule, 1 EACH PO DAILY 09/23/13 Aspirin (ASPIRIN EC) 81 Mg Tablet.dr, 81 MG PO DAILY 09/23/13 Cholecalciferol (Vitamin D3) (VITAMIN D-3) 2,000 Unit Capsule, 2000 UNIT PO DAILY 09/23/13 Discontinued Reported Medications Latanoprost (LATANOPROST) 2.5 Ml Drops, 1 ML OP QHS 09/23/13 Discontinued Scripts Oxycodone Hcl/Acetaminophen (OXYCODONE-ACETAMINOPHEN 5-325) 1 Each Tablet, 1 TAB PO PRN Q4HRS PRN for MODERATE PAIN, #30 TAB 0 Refills Prov:KAVYA GOYAL APRN 06/30/16 CARLOS EDUARDO SANTIAGO MD Sep 27, 2019 11:52
--- NOTE | 2019-09-27 14:28 | NUR ---
SW following. Met with pt, pt would like referral sent to [facility] for SNU as she has been in the past. ANGELIC faxed referral and discharge orders. Awaiting acceptance decision, and insurance auth. RN notified.
[2019-09-27 15:47] VITALS: BP 138/59
[2019-09-27 19:20] VITALS: BP 104/62
[2019-09-27] MEDS: CEFDINIR 300 MG CAPSULE PO SCH (22:46)
[2019-09-27 23:50] VITALS: BP 126/59
[2019-09-28 03:30] VITALS: BP 120/55
[2019-09-28] MEDS: IPRATRPIUM/ALBUTEROL 0.5/2.5MG 3 ML NEBU. NEB SCH ×6 (03:31→23:42)
[2019-09-28] MEDS: BUDESONIDE 0.5 MG/2 ML NEBU. NEB SCH ×2 (07:23→19:29)
[2019-09-28 07:57] VITALS: BP 144/69
[2019-09-28] MEDS: POTASSIUM CHLORIDE 20 MEQ TABLET.ER. PO SCH (08:25)
[2019-09-28] MEDS: CEFDINIR 300 MG CAPSULE PO SCH ×2 (08:25→21:40)
[2019-09-28] MEDS: FLUTICASONE 50MCG/NASAL SPRAY 16GM BOTTLE. NS SCH (08:29)
[2019-09-28] MEDS: HEPARIN for SUB-Q USE 5,000 UNIT/ML VIAL. SQ SCH ×2 (08:29→21:43)
--- NOTE | 2019-09-28 08:45 | PDOC ---
PULMONARY PROGRESS NOTES Subjective PT LESS SOA Vitals Vital Signs Date Time Temp Pulse Resp B/P (MAP) Pulse Ox O2 Delivery O2 Flow Rate FiO2 09/28/19 07:57 98.4 102 18 144/69 (94) 96 Nasal Cannula 5.0 98.4 ROS: No Nausea, No Chest Pain, No Abdominal Pain, No Increase Cough General: Alert, No acute distress Lungs: Wheezing Cardiovascular: S1, S2 Abdomen: Soft, Non-tender Neuro Exam: Alert Extremities: No Edema Skin: Warm Labs Laboratory Tests Test 09/27/19 04:13 White Blood Count 11.9 x10^3/uL (4.0-11.0) Red Blood Count 3.31 x10^6/uL (3.50-5.40) Hemoglobin 10.2 g/dL (12.0-15.5) Hematocrit 31.0 % (36.0-47.0) Mean Corpuscular Volume 94 fL (79-100) Mean Corpuscular Hemoglobin 31 pg (25-35) Mean Corpuscular Hemoglobin Concent 33 g/dL (31-37) Red Cell Distribution Width 14.7 % (11.5-14.5) Platelet Count 215 x10^3/uL (140-400) Neutrophils (%) (Auto) 86 % (31-73) Lymphocytes (%) (Auto) 10 % (24-48) Monocytes (%) (Auto) 4 % (0-9) Eosinophils (%) (Auto) 0 % (0-3) Basophils (%) (Auto) 0 % (0-3) Neutrophils # (Auto) 10.2 x10^3/uL (1.8-7.7) Lymphocytes # (Auto) 1.2 x10^3/uL (1.0-4.8) Monocytes # (Auto) 0.5 x10^3/uL (0.0-1.1) Eosinophils # (Auto) 0.0 x10^3/uL (0.0-0.7) Basophils # (Auto) 0.0 x10^3/uL (0.0-0.2) Sodium Level 146 mmol/L (136-145) Potassium Level 3.8 mmol/L (3.5-5.1) Chloride Level 109 mmol/L (98-107) Carbon Dioxide Level 28 mmol/L (21-32) Anion Gap 9 (6-14) Blood Urea Nitrogen 20 mg/dL (7-20) Creatinine 0.7 mg/dL (0.6-1.0) Estimated GFR (Cockcroft-Gault) 97.4 BUN/Creatinine Ratio 29 (6-20) Glucose Level 86 mg/dL (70-99) Calcium Level 9.0 mg/dL (8.5-10.1) Total Bilirubin 0.6 mg/dL (0.2-1.0) Aspartate Amino Transf (AST/SGOT) 23 U/L (15-37) Alanine Aminotransferase (ALT/SGPT) 13 U/L (14-59) Alkaline Phosphatase 43 U/L (46-116) Total Protein 4.9 g/dL (6.4-8.2) Albumin 1.8 g/dL (3.4-5.0) Albumin/Globulin Ratio 0.6 (1.0-1.7) Medications Active Scripts Medications Dose Route/Sig Max Daily Dose Days Date Category Oxycodone-Acetaminophen 5-325 (Oxycodone Hcl/Acetaminophen) 1 Each Tablet 1 Tab PO PRN Q4HRS PRN 06/30/16 Rx Latanoprost 2.5 Ml Drops 1 Drop OU QHS 06/30/16 Rx Duoneb 0.5-3(2.5) Mg/3 Ml (Albuterol/Ipratropium) 3 Ml Ampul.neb 3 Ml NEB RTQID 06/30/16 Rx Tamoxifen Citrate 20 Mg Tablet 10 Mg PO BID 04/16/16 Reported Latanoprost 2.5 Ml Drops 1 Ml OP QHS 09/23/13 Reported Triamterene-Hctz 37.5-25 Mg Cp (Triamterene/Hydrochlorothiazid) 1 Each Capsule 1 Each PO DAILY 09/23/13 Reported Aspirin Ec (Aspirin) 81 Mg Tablet.dr 81 Mg PO DAILY 09/23/13 Reported Vitamin D-3 (Cholecalciferol (Vitamin D3)) 2,000 Unit Capsule 2,000 Unit PO DAILY 09/23/[address] chest reviewed not reported yet extensive basal pneumonia L>R small portion of lung herniation RUL Impression . 1. Acute hypoxic respiratory failure secondary to underlying chronic obstructive pulmonary disease and extensive pneumonia involving the left lower lobe.and RLL 2. Underlying suspected severe chronic obstructive pulmonary disease. 3. History of lung cancer, adenocarcinoma, status post right upper lobectomy at least 10 years ago. 4. History of deep venous thrombosis around the time when the cancer was diagnosed and treated. No history of pulmonary embolism. 5. Acute kidney injury secondary to dehydration. resolved 6. Hypokalemia. resolved 7. Moderate protein-calorie malnutrition. 8. Influenza screen negative. 9. Sepsis with early shock. improved with IVF 10.STREP AND MYCOPLASMA SEROLOGY POSITIVE Plan . OK TOT DC OR TRANSFER TODAY FOLLOW UP IN OFFICE IN NOV 13 D/C SMOKING NUTRITIONAL SUPPORT JASON MUÑOZ MD Sep 28, 2019 08:45
[2019-09-28 11:15] VITALS: BP 138/67
--- NOTE | 2019-09-28 12:08 | PDOC ---
Infectious Disease Note Subjective Subjective feeling better, breathing better, poor intake ROS ROS no n/v/d/ Vital Sign Vital Signs Vital Signs Date Time Temp Pulse Resp B/P (MAP) Pulse Ox O2 Delivery O2 Flow Rate FiO2 09/28/19 11:15 98.7 98 18 138/67 (90) 97 Nasal Cannula 5.0 98.7 Physical Exam PHYSICAL EXAM GENERAL: Propped up in bed, alert, appears comfortable, tired HEENT: Oral cavity, pharynx clear. NECK: Supple. LUNGS: Improved aeration HEART: S1, S2. ABDOMEN: Flat, soft, nontender, no guarding EXTREMITIES: Without clubbing, cyanosis or gross edema. SKIN: Warm to touch without signs of rash. NEUROLOGIC: Alert, appropriate. Labs Micro Microbiology 09/22/19 Blood Culture - Preliminary, Resulted NO GROWTH AFTER 4 DAYS Objective Assessment Sepsis - POA 09/22 - improved Mycoplasma + PCN allergy - rash -uncertain if ever had Amox/Augmentin/Cephalexin - etc. Bandemia LL pneumonia - better NAM - better H/o lung CA 2018 s/p lobectomy and chemo Tobacco abuse Strep pneumo antigen + Plan Plan of Care po omnicef for 5 more days BC neg so far ERICA HOWARD MD Sep 28, 2019 12:08
--- NOTE | 2019-09-28 12:27 | PDOC ---
Provider Note Provider Note Pt discharegd yesterday by DR Weldon and has done MAR and dc summ SW note says insurance auth pending I have examined and seen pt and she has nothing to add to this info but is agreeable to SNU NO chnange iN [facility] SNu auth pending JESSICA RITTER MD Sep 28, 2019 12:27
[2019-09-28] MEDS ORDERED: FLU VAX QS 2019-20 (36MOS+)/PF 0.5 ML SYRINGE. VAX IM ONE (14:00)
[2019-09-28 15:22] VITALS: BP 143/69
--- NOTE | 2019-09-28 15:42 | NUR ---
SS following up with discharge planning. Pt accepted at [facility], ; fax [phone], pending insurance authorization. Loan Expeditor, Isis Ren, phoned and faxed discharge orders to [facility]. SS will await insurance authorization and will proceed accordingly.
--- NOTE | 2019-09-28 18:46 | NUR ---
Patient has been coughing up some small amounts of blood today. A sputum sample was sent. Will continue to monitor.
[2019-09-28 19:00] VITALS: BP 122/54
[2019-09-28 23:00] VITALS: BP 122/55
[2019-09-29 03:00] VITALS: BP 108/45
[2019-09-29] MEDS: IPRATRPIUM/ALBUTEROL 0.5/2.5MG 3 ML NEBU. NEB SCH ×3 (03:58→11:10)
[2019-09-29] MEDS: BUDESONIDE 0.5 MG/2 ML NEBU. NEB SCH (07:07)
[2019-09-29 07:52] VITALS: BP 139/58
--- NOTE | 2019-09-29 08:41 | PDOC ---
PULMONARY PROGRESS NOTES Subjective PT LESS SOA Vitals Vital Signs Date Time Temp Pulse Resp B/P (MAP) Pulse Ox O2 Delivery O2 Flow Rate FiO2 09/29/19 07:52 98.5 108 20 139/58 (85) 91 Nasal Cannula 4.0 98.5 ROS: No Nausea, No Chest Pain, No Abdominal Pain, No Increase Cough General: Alert, No acute distress Lungs: Wheezing Cardiovascular: S1, S2 Abdomen: Soft, Non-tender Neuro Exam: Alert Extremities: No Edema Skin: Warm Medications Active Scripts Medications Dose Route/Sig Max Daily Dose Days Date Category Oxycodone-Acetaminophen 5-325 (Oxycodone Hcl/Acetaminophen) 1 Each Tablet 1 Tab PO PRN Q4HRS PRN 06/30/16 Rx Latanoprost 2.5 Ml Drops 1 Drop OU QHS 06/30/16 Rx Duoneb 0.5-3(2.5) Mg/3 Ml (Albuterol/Ipratropium) 3 Ml Ampul.neb 3 Ml NEB RTQID 06/30/16 Rx Tamoxifen Citrate 20 Mg Tablet 10 Mg PO BID 04/16/16 Reported Latanoprost 2.5 Ml Drops 1 Ml OP QHS 09/23/13 Reported Triamterene-Hctz 37.5-25 Mg Cp (Triamterene/Hydrochlorothiazid) 1 Each Capsule 1 Each PO DAILY 09/23/13 Reported Aspirin Ec (Aspirin) 81 Mg Tablet.dr 81 Mg PO DAILY 09/23/13 Reported Vitamin D-3 (Cholecalciferol (Vitamin D3)) 2,000 Unit Capsule 2,000 Unit PO DAILY 09/23/[address] chest reviewed not reported yet extensive basal pneumonia L>R small portion of lung herniation RUL Impression . 1. Acute hypoxic respiratory failure secondary to underlying chronic obstructive pulmonary disease and extensive pneumonia involving the left lower lobe.and RLL 2. Underlying suspected severe chronic obstructive pulmonary disease. 3. History of lung cancer, adenocarcinoma, status post right upper lobectomy at least 10 years ago. 4. History of deep venous thrombosis around the time when the cancer was diagnosed and treated. No history of pulmonary embolism. 5. Acute kidney injury secondary to dehydration. resolved 6. Hypokalemia. resolved 7. Moderate protein-calorie malnutrition. 8. Influenza screen negative. 9. Sepsis with early shock. improved with IVF 10.STREP AND MYCOPLASMA SEROLOGY POSITIVE Plan . OK TOT DC OR TRANSFER TODAY FOLLOW UP IN OFFICE IN NOV 13 D/C SMOKING NUTRITIONAL SUPPORT JASON MUÑOZ MD Sep 29, 2019 08:41
[2019-09-29] MEDS: POTASSIUM CHLORIDE 20 MEQ TABLET.ER. PO SCH (09:19)
[2019-09-29] MEDS: CEFDINIR 300 MG CAPSULE PO SCH (09:19)
[2019-09-29] MEDS: HEPARIN for SUB-Q USE 5,000 UNIT/ML VIAL. SQ SCH (09:20)
[2019-09-29] MEDS: FLUTICASONE 50MCG/NASAL SPRAY 16GM BOTTLE. NS SCH (09:21)
--- NOTE | 2019-09-29 10:38 | PDOC ---
PROGRESS NOTES History of Present Illness History of Present Illness Images Images CXR - 1. Left lower lobe consolidation likely pneumonia or atelectasis. Follow- up to resolution. 2. Prominent bilateral digital lung markings likely mild congestive changes. hx Pneumonia, right upper lobectomy , lung cancer, breast cancer VTE Prophylaxis Ordered VTE Prophylaxis Devices: Yes VTE Pharmacological Prophylaxi: Yes DISCHARGE DX Assessment/Plan A/P: Acute hypoxia LLL infiltrate - pneumonia. Likely gram negative given her h/o lung cancer and structural lung disease. . Pulm consulted. extensive basal pneumonia. RUL small lung herniation likely related to lobectomy Significant bibasilar lower lobe consolidation much greater on the left. Very small pleural effusions. NAM - likely vasomotor nephropathy, started on IVF by ED Sepsis - with tachycardia, fever, empiric antibiotics and fluids given appropriately Lactic acidosis - likely related to hypoxemia, sepsis, trend. HYPOKALEMIA FEN - General diet PPX - Lovenox FULL CODE Dispo - inpatient pulm consult REPLACE K D/c dapto and azithromycin PO OMNICEF BID X 5 DAYS D/C snf 09/29 27 min pt exam, chart review, > 50% of time spent with exam, chart review, pt care coordination Vitals Vitals Vital Signs Date Time Temp Pulse Resp B/P (MAP) Pulse Ox O2 Delivery O2 Flow Rate FiO2 09/29/19 08:00 Nasal Cannula 4.0 09/29/19 07:52 98.5 108 20 139/58 (85) 91 98.5 Physical Exam Physical Exam GENERAL: Propped up in bed, alert, appears comfortable, tired HEENT: Oral cavity, pharynx clear. NECK: Supple. LUNGS: Improved aeration HEART: S1, S2. ABDOMEN: Flat, soft, nontender, no guarding EXTREMITIES: Without clubbing, cyanosis or gross edema. SKIN: Warm to touch without signs of rash. NEUROLOGIC: Alert, appropriate. po omnicef for 5 more days General: Alert, Oriented X3, Cooperative, No acute distress Heart: Regular rate, Normal S1 Lungs: Wheezing Abdomen: Normal bowel sounds, Soft, No tenderness, No hepatosplenomegaly, No masses Extremities: No clubbing, No cyanosis, No edema, Normal pulses, No tenderness/swelling Skin: No rashes, No breakdown, No significant lesion Assessment and Plan Assessmemt and Plan Problems Medical Problems: (1) Acute kidney injury Status: Acute (2) Community acquired pneumonia Status: Acute (3) Dehydration Status: Acute (4) Hypoxemia Status: Acute (5) Shortness of breath Status: Acute Comment Review of Relevant I have reviewed the following items byron (where applicable) has been applied. Labs Microbiology 09/22/19 Blood Culture - Final, Complete NO GROWTH AFTER 5 DAYS Medications Current Medications Albuterol/ Ipratropium (Duoneb) 3 ml 1X ONCE NEB Last administered on 09/22/19at 05:49; Start 09/22/19 at 05:45; Stop 09/22/19 at 05:50; Status DC Levofloxacin/ Dextrose 150 ml @ 100 mls/hr 1X ONCE IV Last administered on 09/22/19at 07:21; Start 09/22/19 at 07:00; Stop 09/22/19 at 08:29; Status DC Sodium Chloride 1,000 ml @ 250 mls/hr 1X ONCE IV Last administered on 09/22/19at 07:22; Start 09/22/19 at 07:00; Stop 09/22/19 at 10:59; Status DC Acetaminophen (Tylenol) 1,000 mg 1X ONCE PO Last administered on 09/22/19at 07:21; Start 09/22/19 at 07:00; Stop 09/22/19 at 07:01; Status DC Sodium Chloride 1,000 ml @ 125 mls/hr Q8H IV Last administered on 09/23/19at 00:16; Start 09/22/19 at 08:03; Stop 09/23/19 at 08:02; Status DC Acetaminophen (Tylenol) 650 mg PRN Q4HRS PRN PO FEVER Last administered on 09/22/19at 22:46; Start 09/22/19 at 08:15; Stop 09/23/19 at 08:14; Status DC Albuterol/ Ipratropium (Duoneb) 3 ml RTQID NEB Last administered on 09/23/19at 07:03; Start 09/22/19 at 12:00; Stop 09/23/19 at 11:59; Status DC Sodium Chloride 1,000 ml @ 1,000 mls/hr 1X ONCE IV Last administered on 09/22/19at 08:55; Start 09/22/19 at 09:00; Stop 09/22/19 at 09:59; Status DC Albumin Human 500 ml @ 125 mls/hr 1X ONCE IV Last administered on 09/22/19at 09:33; Start 09/22/19 at 09:30; Stop 09/22/19 at 13:29; Status DC Sodium Chloride 250 ml @ 250 mls/hr 1X ONCE IV Last administered on 09/22/19at 10:56; Start 09/22/19 at 10:45; Stop 09/22/19 at 11:44; Status DC Influenza Virus Vaccine Quadrival (Afluria Quad 2019-20 (3yr Up) Syringe) 0.5 ml ONCE ONCE VAX IM ; Start 09/23/19 at 09:00; Stop 09/23/19 at 09:01; Status DC Levofloxacin/ Dextrose (Levaquin Per Pharmacy) 1 each PRN DAILY PRN MC SEE COMMENTS; Start 09/22/19 at 12:15; Stop 09/22/19 at 15:06; Status DC Levofloxacin/ Dextrose 150 ml @ 100 mls/hr Q48H IV ; Start 09/24/19 at 06:00; Stop 09/22/19 at 15:06; Status DC Meropenem 500 mg/ Sodium Chloride 50 ml @ 100 mls/hr Q6HRS IV Last administered on 09/27/19at 05:44; Start 09/22/19 at 18:00; Stop 09/27/19 at 10:24; Status DC Daptomycin 430 mg/ Sodium Chloride 50 ml @ 100 mls/hr Q48H IV Last administered on 09/22/19at 16:13; Start 09/22/19 at 15:00; Stop 09/23/19 at 08:50; Status DC Linezolid (Zyvox) 600 mg BID PO Last administered on 09/26/19at 08:32; Start 09/22/19 at 21:00; Stop 09/26/19 at 12:12; Status DC Doxycycline Hyclate (Vibra-Tab) 100 mg BID PO ; Start 09/23/19 at 09:00; Stop 09/23/19 at 08:50; Status DC Heparin Sodium (Porcine) (Heparin Sodium) 5,000 unit BID SQ Last administered on 09/29/19at 09:20; Start 09/22/19 at 16:00 Daptomycin 430 mg/ Sodium Chloride 50 ml @ 100 mls/hr Q24H IV Last administered on 09/24/19at 15:50; Start 09/23/19 at 15:00; Stop 09/25/19 at 13:09; Status DC Azithromycin (Zithromax) 500 mg DAILY PO Last administered on 09/25/19at 08:11; Start 09/23/19 at 09:00; Stop 09/25/19 at 13:09; Status DC Albuterol/ Ipratropium (Duoneb) 3 ml RTQID NEB Last administered on 09/25/19at 07:49; Start 09/23/19 at 17:00; Stop 09/25/19 at 09:21; Status DC Fluticasone Propionate (Flonase) 2 spray DAILY NS Last administered on 09/29/19at 09:21; Start 09/24/19 at 10:00 Potassium Chloride (Klor-Con) 40 meq 1X ONCE PO Last administered on 09/24/19at 11:23; Start 09/24/19 at 11:00; Stop 09/24/19 at 11:01; Status DC Potassium Chloride (Klor-Con) 20 meq DAILYWBKFT PO Last administered on 09/29/19at 09:19; Start 09/25/19 at 08:00 Albuterol/ Ipratropium (Duoneb) 3 ml Q4HRS NEB Last administered on 09/29/19at 07:07; Start 09/25/19 at 12:00 Budesonide (Pulmicort) 0.5 mg RTBID NEB Last administered on 09/29/19at 07:07; Start 09/25/19 at 20:00 Acetaminophen (Tylenol) 650 mg PRN Q6HRS PRN PO PAIN Last administered on 09/27/19at 05:44; Start 09/25/19 at 17:45 Guaifenesin (Robitussin Dm) 10 ml PRN Q6HRS PRN PO COUGH; Start 09/25/19 at 17:45; Status Cancel Guaifenesin (Robitussin) 200 mg PRN Q6HRS PRN PO COUGH Last administered on 09/26/19at 17:49; Start 09/25/19 at 18:00 Cefdinir (Omnicef) 300 mg BID PO Last administered on 09/29/19at 09:19; Start 09/27/19 at 21:00 Influenza Virus Vaccine Quadrival (Afluria Quad 2019-20 (3yr Up) Syringe) 0.5 ml ONCE ONCE VAX IM Last administered on 09/28/19at 13:57; Start 09/28/19 at 14:00; Stop 09/28/19 at 14:01; Status DC Active Scripts Active Fluticasone Propionate Nasal [place] (Fluticasone Propionate) 16 Gm [place].susp 2 [place] NS DAILY 30 Days Guaifenesin 100 Mg/5 Ml Liquid 200 Mg PO PRN Q6HRS PRN 10 Days Budesonide 0.5 Mg/2 Ml Ampul.neb 0.5 Mg NEB RTBID 30 Days Klor-Con M20 (Potassium Chloride) 20 Meq Tab.er.prt 20 Meq PO DAILYWBKFT 10 Days Tylenol (Acetaminophen) 325 Mg Tablet 650 Mg PO PRN Q6HRS PRN 10 Days Cefdinir 300 Mg Capsule 300 Mg PO BID 7 Days Latanoprost 2.5 Ml Drops 1 Drop OU QHS Duoneb 0.5-3(2.5) Mg/3 Ml (Albuterol/Ipratropium) 3 Ml Ampul.neb 3 Ml NEB RTQID Reported Tamoxifen Citrate 20 Mg Tablet 10 Mg PO BID Triamterene-Hctz 37.5-25 Mg Cp (Triamterene/Hydrochlorothiazid) 1 Each Capsule 1 Each PO DAILY Aspirin Ec (Aspirin) 81 Mg Tablet.dr 81 Mg PO DAILY Vitamin D-3 (Cholecalciferol (Vitamin D3)) 2,000 Unit Capsule 2,000 Unit PO DAILY Vitals/I & O Vital Sign - Last 24 Hours 09/28/19 09/28/19 09/28/19 09/28/19 11:13 11:15 15:22 16:24 Temp 98.7 98.6 98.7 98.6 Pulse 98 92 Resp 18 18 B/P (MAP) 138/67 (90) 143/69 (93) Pulse Ox 99 97 99 96 O2 Delivery Nasal Cannula Nasal Cannula Nasal Cannula Nasal Cannula O2 Flow Rate 3.0 5.0 5.0 3.0 09/28/19 09/28/19 09/28/19 09/28/19 19:00 19:30 19:31 20:20 Temp 98.3 98.3 Pulse 112 Resp 18 B/P (MAP) 122/54 (76) Pulse Ox 93 93 93 O2 Delivery Nasal Cannula Nasal Cannula Nasal Cannula Nasal Cannula O2 Flow Rate 5.0 3.0 3.0 5.0 09/28/19 09/28/19 09/29/19 09/29/19 23:00 23:42 03:00 03:58 Temp 98.7 98.1 98.7 98.1 Pulse 106 104 Resp 17 17 B/P (MAP) 122/55 (77) 108/45 (66) Pulse Ox 91 93 90 93 O2 Delivery Nasal Cannula Nasal Cannula Nasal Cannula Nasal Cannula O2 Flow Rate 5.0 3.0 5.0 3.0 09/29/19 09/29/19 09/29/19 07:07 07:52 08:00 Temp 98.5 98.5 Pulse 108 Resp 20 B/P (MAP) 139/58 (85) Pulse Ox 94 91 O2 Delivery Nasal Cannula Nasal Cannula Nasal Cannula O2 Flow Rate 3.0 4.0 4.0 Intake and Output 09/28/19 09/28/19 09/29/19 15:00 23:00 07:00 Intake Total 100 ml 250 ml 150 ml Output Total 300 ml 550 ml 50 ml Balance -200 ml -300 ml 100 ml Nutrition Consultation Dietary Evaluation: Recommendations by RD: Dietary education by RD, Increase Calorie Intake, Protein supplementation Comments: ensure clear tid Expected Outcomes/Goals: to meet >75% est nutr needs via meals and supplements.- goal ongoing Malnutrition Findings: Food and Nutrition Intake (Mod: <75% est energy req 7days Weight Status: Appropriate CARLOS EDUARDO SANTIAGO MD Sep 29, 2019 10:38
[2019-09-29 11:35] VITALS: BP 106/58
--- NOTE | 2019-09-29 12:05 | PDOC ---
Infectious Disease Note Subjective Subjective feeling better, breathing better, poor intake ROS ROS no n/v/d/ Vital Sign Vital Signs Vital Signs Date Time Temp Pulse Resp B/P (MAP) Pulse Ox O2 Delivery O2 Flow Rate FiO2 09/29/19 11:35 98.0 99 20 106/58 (74) 92 Nasal Cannula 4.0 98.0 Physical Exam PHYSICAL EXAM GENERAL: Propped up in bed, alert, appears comfortable, tired HEENT: Oral cavity, pharynx clear. NECK: Supple. LUNGS: Improved aeration HEART: S1, S2. ABDOMEN: Flat, soft, nontender, no guarding EXTREMITIES: Without clubbing, cyanosis or gross edema. SKIN: Warm to touch without signs of rash. NEUROLOGIC: Alert, appropriate. Labs Micro Microbiology 09/22/19 Blood Culture - Preliminary, Resulted NO GROWTH AFTER 4 DAYS Objective Assessment Sepsis - POA 09/22 - improved Mycoplasma + PCN allergy - rash -uncertain if ever had Amox/Augmentin/Cephalexin - etc. Bandemia LL pneumonia - better NAM - better H/o lung CA 2018 s/p lobectomy and chemo Tobacco abuse Strep pneumo antigen + Plan Plan of Care po omnicef for 5 more days BC neg so far ERICA HOWARD MD Sep 29, 2019 12:05
--- NOTE | 2019-09-29 12:29 | SNU/HH DC ---
DISCHARGE ORDERS DISCHARGE INFORMATION: DISCHARGE DATE: Sep 29, 2019 FINAL DIAGNOSIS Problems Medical Problems: (1) Acute kidney injury Status: Acute (2) Community acquired pneumonia Status: Acute (3) Dehydration Status: Acute (4) Hypoxemia Status: Acute (5) Shortness of breath Status: Acute CONDITION ON DISCHARGE: Stable CODE STATUS: Code Status: Full INTERMEDIATE: SNF STAY <30 DAYS: Yes HOSPICE: HOSPICE: No HOSPICE EVAL & TREAT: No LTAC: ADMIT TO LTAC: No POST DISCHARGE ORDERS: ACTIVITY ORDERS: Activity as tolerated, Progressive ambulation WEIGHT BEARING STATUS: Full weight bearing BATHING ORDERS: Shower-keep dressing dry DIET AFTER DISCHARGE: Regular WOUND/INCISION CARE: May get incision wet, No wound care needed TREATMENT/EQUIPMENT ORDERS: ADAPTIVE EQUIPMENT NEEDED: None, Front wheeled walker RESPIRATORY EQUIPMENT NEEDED: Oxygen, Nebulizer Physical Therapy For: Evalulation/Treatment Occupational Therapy For: Evaluation/Treatment Speech Language Pathology For: Evaluation/Treatment DISCHARGE MEDICATIONS: Home Meds Active Scripts Fluticasone Propionate (FLUTICASONE PROPIONATE NASAL SPRAY) 16 Gm [place].susp, 2 SPRAY NS DAILY for NASAL CONGESTION for 30 Days, #1 SPRAY Prov:CARLOS EDUARDO SANTIAGO MD 09/27/19 Guaifenesin (GUAIFENESIN) 100 Mg/5 Ml Liquid, 200 MG PO PRN Q6HRS PRN for COUGH for 10 Days, #120 LIQUID Prov:CARLOS EDUARDO SANTIAGO MD 09/27/19 Budesonide (BUDESONIDE) 0.5 Mg/2 Ml Ampul.neb, 0.5 MG NEB RTBID for COPD for 30 Days, #60 EACH Prov:CARLOS EDUARDO SANTIAGO MD 09/27/19 Potassium Chloride (KLOR-CON M20) 20 Meq Tab.er.prt, 20 MEQ PO DAILYWBKFT for SUPPLEMENT for 10 Days, #10 TAB.SR Prov:CARLOS EDUARDO SANTIAGO MD 09/27/19 Acetaminophen (TYLENOL) 325 Mg Tablet, 650 MG PO PRN Q6HRS PRN for PAIN for 10 Days, #30 TAB Prov:CARLOS EDUARDO SANTIAGO MD 09/27/19 Cefdinir (CEFDINIR) 300 Mg Capsule, 300 MG PO BID for PNEUMONIA for 7 Days, #14 CAP Prov:CARLOS EDUARDO SANTIAGO MD 09/27/19 Latanoprost (LATANOPROST) 2.5 Ml Drops, 1 DROP OU QHS, #5 BOTTLE 0 Refills Prov:KAVYA GOYAL RADIO REPAIRER 06/30/16 Ipratropium/Albuterol Sulfate (DUONEB 0.5-3(2.5) MG/3 ML) 3 Ml Ampul.neb, 3 ML NEB RTQID, #30 0 Refills Prov:KAVYA GOYAL RADIO REPAIRER 06/30/16 Reported Medications Tamoxifen Citrate (TAMOXIFEN CITRATE) 20 Mg Tablet, 10 MG PO BID 04/16/16 Triamterene/Hydrochlorothiazid (TRIAMTERENE-HCTZ 37.5-25 MG CP) 1 Each Capsule, 1 EACH PO DAILY 09/23/13 Aspirin (ASPIRIN EC) 81 Mg Tablet.dr, 81 MG PO DAILY 09/23/13 Cholecalciferol (Vitamin D3) (VITAMIN D-3) 2,000 Unit Capsule, 2000 UNIT PO DAILY 09/23/13 Discontinued Reported Medications Latanoprost (LATANOPROST) 2.5 Ml Drops, 1 ML OP QHS 09/23/13 Discontinued Scripts Oxycodone Hcl/Acetaminophen (OXYCODONE-ACETAMINOPHEN 5-325) 1 Each Tablet, 1 TAB PO PRN Q4HRS PRN for MODERATE PAIN, #30 TAB 0 Refills Prov:KAVYA GOYAL APRN 06/30/16 CARLOS EDUARDO SANTIAGO MD Sep 29, 2019 12:29
--- NOTE | 2019-09-29 13:52 | NUR ---
Discharge Note: YUN JETT [facility] Discharge instructions and discharge home medications reviewed Yazmin at [facility] and a copy given. All questions have been answered and understanding verbalized. The following instructions and handouts were given: transfer of care Discontinued lines and drains: 20 gauge right FA, tip inact. patient tolerated well. Patient discharged to [facility] via transport.
== END 2019-09-29 14:00 | DRG 871 ==
LOC: ER 05:29 → 6 SOUTH 08:09
PROVIDERS: ADMIT Internal Medicine; ATTEND Internal Medicine
DX: A41.9 Sepsis, unspecified organism (principal); J96.01 Acute respiratory failure with hypoxia; N17.0 Acute kidney failure with tubular necrosis; R65.21 Severe sepsis with septic shock; J15.6 Pneumonia due to other Gram-negative bacteria; E44.0 Moderate protein-calorie malnutrition; E87.2 Acidosis; J90 Pleural effusion, not elsewhere classified; I10 Essential (primary) hypertension; J98.4 Other disorders of lung; J43.9 Emphysema, unspecified; F17.210 Nicotine dependence, cigarettes, uncomplicated; E86.0 Dehydration; E87.6 Hypokalemia; Z68.26 Body mass index [BMI] 26.0-26.9, adult; Z92.21 Personal history of antineoplastic chemotherapy; Z85.118 Personal history of other malignant neoplasm of bronchus and lung; Z88.0 Allergy status to penicillin; Z90.2 Acquired absence of lung [part of]; Z86.718 Personal history of other venous thrombosis and embolism; Z90.710 Acquired absence of both cervix and uterus; Z90.79 Acquired absence of other genital organ(s); Z90.722 Acquired absence of ovaries, bilateral; Z87.01 Personal history of pneumonia (recurrent); Z85.3 Personal history of malignant neoplasm of breast; Z80.1 Family history of malignant neoplasm of trachea, bronchus and lung; Z80.49 Family history of malignant neoplasm of other genital organs; Z82.49 Family history of ischemic heart disease and other diseases of the circulatory system
CPT/HCPCS: 36415; 71045; 71250; 80048; 80053; 83605; 83880; 84145; 84484; 85007; 85025; 86738; 87040; 87070; 87205; 87449; 87804; 90471; 90686; 93005; 94640; 94760; 96361; 96365; 96367; 99406; J0878; J1644; J1956; J2185; J7030; J7050; J7620; J7626; P9041; Q0144; 97110; 97530; 99285-25; G0378

== ENCOUNTER → 2019-12-26 | Outpatient (CLI) | payer MEDICARE ==
[~2019-12-26] MED LIST changes: +ACET325T9 PO; +BUDE0.5A NEB; +CEFD300C PO; +FLUT16SP NS; +GUAI100L12 PO; +IOHEXOL 300 MG/ML 100ML VIAL. IV ONE; +POTA20TA4 PO
[2019-12-26 09:24] LABS: CREATININE 1.1 mg/dL (0.6-1.0); GFR 57.8
--- NOTE | 2019-12-26 12:17 | RAD ---
CT chest with contrast PQRS statement: CT scans at this facility use dose reduction including either automated exposure control, iterative reconstructions, and /or weight based radiation dosing via mA and kV modification when appropriate to reduce radiation dose to as low as reasonably achievable. Contrast: 60 mL Omnipaque 300 intravenous contrast. HISTORY: Breast cancer. Right lung cancer. COMPARISON: CT chest September 23, 2019 and priors. Chest findings: There is extensive calcified plaque of the thoracic aorta and coronary arteries. Surgical changes lower neck. Surgical changes right upper outer breast. Left outer posterior breast demonstrates a probable 1 cm nodular mass somewhat obscured by surrounding tissue density. This was previously documented as a cyst on left breast ultrasound from January 2019 and is grossly similar the prior CT study. Heart size normal. Coronary vessels and esophagus are unremarkable. No enlarged adenopathy in the chest. 1.5 cm 13 mm enhancing right adrenal nodule is stable in size to prior imaging available back to 2016. Pulmonary emphysema. Right upper lobectomy. Mild apical scarring and left apical bulla stable. The herniation of the right lower lobe at the right fifth intercostal space on the prior exam has since reduced, there is mild subpleural groundglass and linear density at this region similar to prior imaging likely scarring. The pleural effusions on the prior exam have resolved. The left greater than right dense consolidated opacities on the prior exam have essentially resolved. There is a transverse linear planar band of density with a thickness of 1 cm at the left lower lobe superior segment remaining and separately a focus of linear or round atelectasis posterior basal left lower lobe abutting the diaphragm a thickness of 1.5 cm. Thoracal lumbar mild scoliosis and changes of disc disease. IMPRESSION: 1. The pleural effusions and consolidated lower lobe pulmonary infiltrates on the prior exam have resolved. There is a 1 cm thickness linear planar density at the left lower lobe superior segment and a 1.5 cm in thickness linear nodular density at the posterior basal left lower lobe likely representing areas of atelectasis. Follow-up imaging in 6 months may be of benefit to document that these areas continue to resolve to exclude the possibility of an underlying neoplastic process. 2. Pulmonary emphysema. 3. Other incidental findings are stable as described above. Electronically signed by: Hans Alcala MD (12/26/2019 12:14 PM) [id number]
== END | disposition home or self-care (01) ==
LOC: CT 09:03
PROVIDERS: ATTEND Internal Medicine Hematology & Oncology
DX: I70.0 Atherosclerosis of aorta (principal); C34.91 Malignant neoplasm of unspecified part of right bronchus or lung; D05.11 Intraductal carcinoma in situ of right breast; J43.9 Emphysema, unspecified; I25.10 Atherosclerotic heart disease of native coronary artery without angina pectoris; J98.4 Other disorders of lung; M41.85 Other forms of scoliosis, thoracolumbar region; M51.35 Other intervertebral disc degeneration, thoracolumbar region
CPT/HCPCS: 36415; 71260; 82565; Q9967

== ENCOUNTER → 2020-02-15 | Outpatient (CLI) | payer MEDICARE ==
[~2020-02-15] MED LIST changes: -IOHEXOL 300 MG/ML 100ML VIAL. IV ONE
--- NOTE | 2020-02-15 16:34 | RAD ---
History: Routine screening. Technique: Bilateral digital mammographic routine views were obtained with 2-D and 3-D technique, including CAD - computer aided detection. Comparison: 01/12/2019, 01/11/2018. Findings: Breast Tissue Density B :The breast tissue is composed of mixed fatty and fibroglandular tissue. There are no suspicious masses, microcalcifications or areas of architectural distortion. Impression: Negative mammogram. BI-RADS Category 1: Negative. Normal interval followup. A mammogram does not have 100% sensitivity and therefore a negative imaging study should not delay further work up of a suspicious abnormality. The patient will receive a letter with the results in the mail. Patient information is entered into the reminder system with a target due date for the next screening mammogram. The patient will receive a reminder. "Our facility is accredited by the [employer] Mammography Program." BI-RADS 1 -- negative findings (within normal)
== END | disposition home or self-care (01) ==
LOC: MAMMO 10:51
PROVIDERS: ATTEND Internal Medicine Hematology & Oncology
DX: Z12.31 Encounter for screening mammogram for malignant neoplasm of breast (principal)
CPT/HCPCS: 77063; 77067

== ENCOUNTER → 2020-06-25 | Outpatient (CLI) | payer MEDICARE ==
[~2020-06-25] MED LIST changes: -ASPI-612 PO; +ASPI-886 PO
--- NOTE | 2020-06-25 16:34 | RAD ---
EXAM: CT Chest without IV contrast INDICATION: Reason: ADENOCARCINOMA OF RIGHT LUNG / Spl. Instructions: / History: TECHNIQUE: Multi-detector row CT images were acquired from the thoracic inlet through the upper abdomen without the use of IV contrast. Sagittal and coronal images were acquired from the transaxial data. All CT scans performed at this facility utilize dose optimization techniques as appropriate to the exam, including the following: Automated exposure control and adjustment of the mA and/or KV according to patient size (this includes techniques or standardized protocols for targeted exams where dose is indication/reason for exam). COMPARISON: 12/26/2019 FINDINGS: The absence of IV contrast limits evaluation of soft tissue pathology. CARDIOVASCULAR: Dense circumferential calcifications in the thoracic aorta especially in the ascending portion without aneurysmal dilation. Multivessel coronary calcifications. Normal heart size. MEDIASTINUM & NEFTALY: No adenopathy or masses. LUNGS: Centrilobular emphysema with stable anterior left upper lobe and left apical bullae. Status post right upper lobectomy. Recurrent herniation of a portion of the lateral segment right middle lobe through an intercostal defect between the fifth and sixth anterolateral right ribs. Interval decrease in thickness of the linear bandlike scarring in the superior segment left lower lobe. Stable reticulonodular scarring in the posterior basal left lower lobe. PLEURAL SPACE: No pleural effusions or pneumothorax. OSSEOUS & SOFT TISSUE: Stable postoperative changes in the right breast. Stable ovoid nodularity in the lateral left breast. Postoperative changes in the midline lower neck superficial to the thyroid gland. ABDOMEN: The visualized portions of the upper abdomen again show dense circumferential calcifications in the visualized abdominal aorta. IMPRESSION: Emphysema and postoperative changes in the right lung and right breast as described with no findings suspicious for local recurrence or metastatic disease. Electronically signed by: Yaya Morgan MD (06/25/2020 4:31 PM) [id number]
== END | disposition home or self-care (01) ==
LOC: CT 10:16
PROVIDERS: ATTEND Internal Medicine Hematology & Oncology
DX: C34.91 Malignant neoplasm of unspecified part of right bronchus or lung (principal); I70.0 Atherosclerosis of aorta; J98.4 Other disorders of lung; J43.2 Centrilobular emphysema; N63.10 Unspecified lump in the right breast, unspecified quadrant; Z90.49 Acquired absence of other specified parts of digestive tract; Z90.2 Acquired absence of lung [part of]
CPT/HCPCS: 71250

== ENCOUNTER → 2021-02-20 | Outpatient (CLI) | payer MEDICARE ==
--- NOTE | 2021-02-20 12:09 | RAD ---
DATE: February 20, 2021 EXAM: MAMMO LIANE SCREENING BILATERAL HISTORY: Screening study. History of right breast cancer treated with lumpectomy in 2012. COMPARISON: 2017 and 2019 This study was interpreted with the benefit of Computerized Aided Detection (CAD). FINDINGS: Breast Density: HETERO The breast parenchyma is heterogenously dense, which could reduce sensitivity of mammography. Breast parenchyma level C. There is a new skin mole or sebaceous cyst of the upper outer aspect of the right breast. There are no new dominant suspicious breast masses, suspicious microcalcifications or evidence of architectural distortion. Postoperative changes of the right breast are stable. IMPRESSION: No mammographic indicators for new or recurrent breast malignancy. New right breast mole or sebaceous cyst. This may be further evaluated with right breast sonography to see if this is a sebaceous cyst. BI-RADS CATEGORY: 0 INCOMPLETE: NEEDS ADDITIONAL IMAGING EVALUATION AND/OR PRIOR MAMMOGRAMS FOR COMPARISON. RECOMMENDED FOLLOW-UP: ADD ADDITIONAL IMAGING PQRS compliance statement: Patient information was entered into a reminder system with a target due date now for the next imaging study. Mammography is a sensitive method for finding small breast cancers, but it does not detect them all and is not a substitute for careful clinical examination. A negative mammogram does not negate a clinically suspicious finding and should not result in delay in biopsying a clinically suspicious abnormality. "Our facility is accredited by the [employer] Mammography [employer]." The patient's breast density may affect the ability of mammography to detect breast cancer. There are 4 categories of breast density, A, B, C and D. Breast density A means that most of the breast tissue is replaced with adipose tissue and therefore is not dense. Breast density B means that the breast tissue is mildly dense and scattered. Breast density C means that the breast tissue is heterogeneously dense. Breast density D means that the breast tissue is very dense. Breast densities especially C and D may decrease the sensitivity of mammography to detect breast cancer. Therefore, the patient may benefit from 3-D breast mammography (3D breast tomography) as a part of their screening mammogram. Insurance may or may not pay for this additional imaging. The patient's breast density based on today's mammogram is category C.
== END ==
LOC: MAMMO 10:10
PROVIDERS: ATTEND Family Medicine
DX: Z12.31 Encounter for screening mammogram for malignant neoplasm of breast (principal)
CPT/HCPCS: 77063; 77067

== ENCOUNTER → 2021-02-26 | Outpatient (CLI) | payer MEDICARE ==
--- NOTE | 2021-02-26 10:42 | RAD ---
EXAM: Right breast sonogram. HISTORY: 80-year-old female presents for evaluation of a nodule within the right breast demonstrated on a mammogram dated 02/20/2021. TECHNIQUE: Sonographic imaging of the right breast targeted to the site of mammographic nodularity wa s performed. COMPARISON: 02/20/2021. FINDINGS: There is a small complex cyst within the subcutaneous soft tissues of the right breast at t he 10:00 position 9 cm nipple measuring 5 mm. This corresponds with the mammographic finding of karrie rn. No additional lesion is seen. IMPRESSION: 1. 5 mm benign suspected complex sebaceous cyst within the subcutaneous soft tissues of the right lisa ast at the 10:00 position, corresponding with the mammographic finding of concern. 2. BI-RADS Category 2: Benign finding(s). Annual mammography is recommended. Electronically signed by: Kacey Hollins MD (02/26/2021 10:40 AM) [id number]
== END ==
LOC: US 10:47
PROVIDERS: ATTEND Family Medicine
DX: N60.01 Solitary cyst of right breast (principal)
CPT/HCPCS: 76641

== ENCOUNTER → 2021-07-05 | Outpatient (CLI) | payer MEDICARE ==
[~2021-07-05] MED LIST changes: +POTA-121 PO; -POTA20TA4 PO
--- NOTE | 2021-07-05 11:43 | KCIC ---
CT of the chest without contrast 07/05/2021 INDICATION: History of lung cancer. COMPARISON STUDY: CT of the chest without contrast June 25, 2020 TECHNIQUE: Multidetector CT imaging of the chest performed without the administration of IV contrast. FINDINGS: Severe centrilobular emphysema noted. Within the anterior superior left upper lobe is a spiculated no dular opacity, new from prior study measuring 8 mm in diameter (axial image 13 of 62). No other new n odules or masses are identified. No pneumothorax, pleural effusion, or acute focal consolidative infi ltrate is identified. Limited visualization of the upper abdomen demonstrates no acute abnormality. H eart size is normal. No pericardial effusion is identified. Dense aortic calcification noted. No path ologically enlarged mediastinal nodes are identified. No acute osseous changes are seen. IMPRESSION: 1. New 8 mm spiculated nodular opacity in the left upper lobe. Malignancy not excluded. Recommend 3-6 month follow-up exam versus PET/CT (though nodule may be below the threshold for detectability via P ET) 2. Severe centrilobular emphysema, similar to comparison study. CT DOSING PQRS STATEMENT: One or more of the following individualized dose reduction techniques were utilized for this examinat ion: 1. Automated exposure control 2. Adjustment of the mA and/or kV according to patient size 3. Use of iterative reconstruction technique Electronically signed by: Faraz Sahni MD (07/05/2021 11:41 AM) [id number]
== END ==
LOC: KCIC CT 10:21
PROVIDERS: ATTEND Internal Medicine Hematology & Oncology
DX: C34.91 Malignant neoplasm of unspecified part of right bronchus or lung (principal); R91.1 Solitary pulmonary nodule; J43.2 Centrilobular emphysema; I70.0 Atherosclerosis of aorta
CPT/HCPCS: 71250

== ENCOUNTER → 2022-02-25 | Outpatient (CLI) | payer MEDICARE ==
--- NOTE | 2022-02-25 13:17 | RAD ---
EXAM: BILATERAL DIGITAL 3D SCREENING MAMMOGRAPHY. HISTORY: Personal history of right breast cancer status post breast conservation therapy. Routine jacqueline veillance. TECHNIQUE: Bilateral digital 3D and tomographic images were obtained in CC and MLO projections. Compu ter-aided detection was applied. COMPARISON: 02/20/2021, 02/15/2020. COMPOSITION: B. There are scattered areas of fibroglandular density. FINDINGS: There are post breast conservation therapy changes superolaterally on the right. A nodule s uperolaterally on the left is stable chronically. Another asymmetric parenchymal island inferomediall y on the left is stable chronically. Scattered calcifications are benign. There are no suspicious mas ses, microcalcifications or architectural distortion. The parenchymal pattern is stable. BI-RADS CATEGORY 2: Benign. RECOMMENDATION: 1. Routine screening mammography in one year. If mammography demonstrates dense breast tissue (heterogenously dense or extremely dense, category C or D), which could hide abnormalities, and if other risk factors for breast cancer have been identifi ed, supplemental screening tests that may be suggested by the ordering physician may be of benefit. D ense breast tissue, in and of itself, is a relatively common condition. Therefore, this information i s not provided to cause undue concern, but rather to raise awareness and to promote discussion with t he referring physician regarding the presence of other risk factors, in addition to dense breast tiss ue. The results of this mammography examination is provided to the patient and referring physician. T he patient should contact their referring physician if any questions or concerns exist regarding this report. PQRS compliance statement - Patient information was entered into a reminder system with a target due date for the next mammogram. "Our facility is accredited by the [employer] Mammography Program." Electronically signed by: David Curran MD (02/25/2022 1:14 PM) [id number]
== END ==
LOC: MAMMO 11:11
PROVIDERS: ATTEND Family Medicine
DX: Z12.31 Encounter for screening mammogram for malignant neoplasm of breast (principal); N64.89 Other specified disorders of breast
CPT/HCPCS: 77063; 77067